=== PATIENT | male | born 1945 | race Caucasian/White ===

== ENCOUNTER 2018-10-29 21:39 | Inpatient (IN) | payer OTHER ==
[2018-10-29 22:45] LABS: Absolute Lymphocytes (CBC) 1.6 K/uL (0.7-4.9); Basophils % 1.1 % (0-1.3); Hematocrit 38.4 % (39.6-49.0); Lymphocytes % 16.7 % (15.3-44.8); MPV 9.8 fL (7.6-11.3); RBC Red Blood Cell Count 4.68 M/uL (4.33-5.43)
[2018-10-29 22:56] LABS: ALT/SGPT 19 U/L (12-78); AST/SGOT 15 U/L (15-37); Albumin 3.5 g/dL (3.4-5.0); Alkaline Phosphatase 87 U/L (45-117); BUN Blood Urea Nitrogen 22 mg/dL (7-18); Bicarbonate 27 mmol/L (21-32); Bilirubin Direct < 0.1 mg/dL (0-0.2); Bilirubin Total 0.3 mg/dL (0.2-1.0); Glucose Level 185 mg/dL (74-106); Magnesium 2.5 mg/dL (1.8-2.4); NT PRO-BNP 745 pg/mL (<125); Potassium 4.1 mmol/L (3.5-5.1); Protein, Total 7.3 g/dL (6.4-8.2); Sodium Level 140 mmol/L (136-145)
[2018-10-29 22:58] LABS: Troponin (Emerg Dept Use Only) 1.03 ng/mL (0.0-0.045)
--- NOTE | 2018-10-29 23:23 | ER ---
Nurse's Notes [facility] Name: Aniceto Feldman Age: 73 yrs Sex: Male : 1945 Arrival Date: 10/29/2018 Time: 21:41 Bed 6 Private MD: Diagnosis: Chest pain. Acute M.I. Elevated Troponin Presentation: 10/29 21:55 Presenting complaint: Patient states: left chest wall pain since 2044. pt stated the ak1 pain moved from center of his chest to the left chest wall. 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 Transition of care: patient was not received from another setting of care. Onset of symptoms was October 29, 2018. Risk Assessment: Do you want to hurt yourself or someone else? Patient reports no desire to harm self or others. Initial Sepsis Screen: Does the patient meet any 2 criteria? No. Patient's initial sepsis screen is negative. Does the patient have a suspected source of infection? No. Patient's initial sepsis screen is negative. Care prior to arrival: None. 21:55 Acuity: KRISTIE 3 ak1 21:55 Method Of Arrival: Ambulatory ak1 Triage Assessment: 21:59 General: Appears in no apparent distress. comfortable, Behavior is calm, cooperative. ak1 Pain: Complains of pain in left clavicle, anterior aspect of left upper chest, xyphoid area, mid-sternal area and left breast. EENT: No signs and/or symptoms were reported regarding the EENT system. Neuro: Level of Consciousness is awake, alert, obeys commands, Oriented to person, place, time, situation, Appropriate for age Filling And Packing Supervisor are equal bilaterally Moves all extremities. Gait is steady, Speech is normal, Facial symmetry appears normal. Cardiovascular: Reports chest pain, diaphoresis, palpitations, Heart tones S1 S2 present Capillary refill < 3 seconds Patient's skin is warm and dry. Respiratory: Airway is patent Respiratory effort is even, unlabored, Respiratory pattern is regular. GI: No signs and/or symptoms were reported involving the gastrointestinal system. : No signs and/or symptoms were reported regarding the genitourinary system. Derm: Skin is intact, Skin is dry, Skin temperature is warm. Musculoskeletal: No signs and/or symptoms reported regarding the musculoskeletal system. Historical: - Allergies: 21:59 Procardia; ak1 21:59 Fentanyl; ak1 21:59 Vecuronium [place]; ak1 21:59 nostigmine; ak1 21:59 amlodipine; ak1 - Home Meds: 21:59 losartan oral oral [Active]; thyroid -LABEL TACKER [Active]; ak1 - PMHx: 21:59 Atrial Fib; colon cancer 07/2016 getting vitamin C IV infusions; Hypertension; irregular ak1 heart beat; Myocardial infarction; Hypothyroidism; - PSHx: 21:59 Carotid surgery; Heart stents; hand surgery-right hand; Tonsillectomy; tumor removal- ak1 left shoulder; - Immunization history:: Adult Immunizations unknown. - Social history:: Smoking status: Patient/guardian denies using tobacco. - Ebola Screening: : No symptoms or risks identified at this time. Screenin:01 Abuse screen: Denies threats or abuse. Denies injuries from another. Nutritional ak1 screening: No deficits noted. Tuberculosis screening: No symptoms or risk factors identified. Fall Risk None identified. Assessment: 22:01 Pain: Pain does not radiate. Pain began 2 hours ago. ak1 10/30 00:08 Reassessment: Patient and/or family updated on plan of care and expected duration. Pain ao level reassessed. Patient is alert, oriented x 3, equal unlabored respirations, skin warm/dry/pink. Called to give report and no nurse has been assigned. Charge stated will called back when assignment has been made. Vital Signs: 10/29 21:54 BP 165 / 86; Pulse 97; Resp 16; Temp 98.1; Pulse Ox 95% on R/A; Weight 97.52 kg (R); ak1 Height 5 ft. 1 in. (154.94 cm) (R); Pain 5/10; 23:00 BP 131 / 52; Pulse 90; Resp 18; Pulse Ox 95% on R/A; ao 10/30 00:08 BP 156 / 68; Pulse 91; Resp 18; Pulse Ox 97% ; Pain 3/10; ao 10/29 21:54 Body Mass Index 40.62 (97.52 kg, 154.94 cm) ak1 ED Course: 10/29 21:41 Patient arrived in ED. ds1 21:54 Felton Mercado MD is Attending Physician. pkl 21:54 Rimma Alexandra RN is Primary Nurse. ak1 21:54 Arm band placed on Patient placed in an exam room, on a stretcher, on strategic intelligence officer, ak1 on pulse oximetry, Patient notified of wait time. 21:56 Triage completed. ak1 21:59 EKG completed in triage. Results shown to MD. ak1 22:01 Patient has correct armband on for positive identification. Placed in gown. Bed in low ak1 position. Call light in reach. Side rails up X 1. Adult w/ patient. cook helper on. Pulse ox on. NIBP on. 22:01 No provider procedures requiring assistance completed. EKG done, by ED staff, reviewed ak1 by Felton Mercado MD X-ray(s) taken. Patient maintains SpO2 saturation greater than 95% on room air. 22:07 XRAY Chest (1 view) In Process Unspecified. EDMS 23:19 Sukhdev Finch MD is Hospitalizing Provider. pkl 23:59 Notified ED physician of other Dr. Mercado with verbal order to send pt to Tele unit not ak1 ICU[facility]. 10/30 00:00 Patient admitted, IV remains in place. ak1 Administered Medications: 10/29 23:35 Drug: HEParin 5000 units {Co-Signature: gibson (Rimma Alexandra RN).} Route: IV; Rate: 5000 ao bolus; Site: right subclavian; 23:47 Drug: Heparin ([place] Drip) 12 units/kg/hr - (HEParin 12107 units, D5W 500 ml) ao {Co-Signature: gibson (Rimma Alexandra RN).} Route: IV; Rate: calculated rate; Site: right forearm; Outcome: 23:21 Decision to Hospitalize by Provider. pkl 10/30 00:44 Admitted to Tele accompanied by tech, room 422, on monitor, with chart, Report called ao to Primary nurse Condition: stable Instructed on the need for admit. 00:45 Patient left the ED. ao Signatures: Dispatcher [employer] EDMS Felton Mercado MD MD pkl Gaby Marks ds1 Rimma Alexandra, RN RN ak1 Arun Calvin RN RN david connor1
--- NOTE | 2018-10-29 23:24 | EDPHYS ---
Physician Documentation [facility] Name: Aniceto Feldman Age: 73 yrs Sex: Male : 1945 Arrival Date: 10/29/2018 Time: 21:41 Bed 6 Private MD: ED Physician Felton Mercado HPI: 10/29 22:08 This 73 yrs old Male presents to ER via Ambulatory with complaints of Chest pkl Pain. 22:08 The patient or guardian reports chest pain that is located primarily in the substernal pkl area. Onset: just prior to arrival, 1 hour(s) ago. The pain radiates to left side chest. Associated signs and symptoms: The patient has no apparent associated signs or symptoms. The chest pain is described as dull. The patient has experienced similar episodes in the past, a few times. Historical: - Allergies: 21:59 Procardia; ak1 21:59 Fentanyl; ak1 21:59 Vecuronium [place]; ak1 21:59 nostigmine; ak1 21:59 amlodipine; ak1 - Home Meds: 21:59 losartan oral oral [Active]; thyroid -SALES SUPPORT REP [Active]; ak1 - PMHx: 21:59 Atrial Fib; colon cancer 07/2016 getting vitamin C IV infusions; Hypertension; irregular ak1 heart beat; Myocardial infarction; Hypothyroidism; - PSHx: 21:59 Carotid surgery; Heart stents; hand surgery-right hand; Tonsillectomy; tumor removal- ak1 left shoulder; - Immunization history:: Adult Immunizations unknown. - Social history:: Smoking status: Patient/guardian denies using tobacco. - Ebola Screening: : No symptoms or risks identified at this time. ROS: 22:08 Eyes: Negative for injury, pain, redness, and discharge, ENT: Negative for injury, pkl pain, and discharge, Neck: Negative for injury, pain, and swelling. 22:08 Cardiovascular: Positive for chest pain. 22:08 Respiratory: Negative for cough, shortness of breath. 22:08 Abdomen/GI: Negative for abdominal pain, nausea, vomiting, and diarrhea. 22:08 Back: Negative for acute changes. 22:08 : Negative for urinary symptoms. 22:08 MS/extremity: Negative for acute changes. 22:08 Skin: Negative for rash. 22:08 Neuro: Negative for altered mental status. Exam: 22:08 Head/Face: Normocephalic, atraumatic. Eyes: Pupils equal round and reactive to light, pkl extra-ocular motions intact. Lids and lashes normal. Conjunctiva and sclera are non-icteric and not injected. Cornea within normal limits. Periorbital areas with no swelling, redness, or edema. ENT: Nares patent. No nasal discharge, no septal abnormalities noted. Tympanic membranes are normal and external auditory canals are clear. Oropharynx with no redness, swelling, or masses, exudates, or evidence of obstruction, uvula midline. Mucous membranes moist. Neck: Trachea midline, no thyromegaly or masses palpated, and no cervical lymphadenopathy. Supple, full range of motion without nuchal rigidity, or vertebral point tenderness. No Meningismus. Chest/axilla: Normal chest wall appearance and motion. Nontender with no deformity. No lesions are appreciated. Cardiovascular: Regular rate and rhythm with a normal S1 and S2. No gallops, murmurs, or rubs. Normal PMI, no JVD. No pulse deficits. Respiratory: Lungs have equal breath sounds bilaterally, clear to auscultation and percussion. No rales, rhonchi or wheezes noted. No increased work of breathing, no retractions or nasal flaring. Abdomen/GI: Soft, non-tender, with normal bowel sounds. No distension or tympany. No guarding or rebound. No evidence of tenderness throughout. Back: No spinal tenderness. No costovertebral tenderness. Full range of motion. Skin: Warm, dry with normal turgor. Normal color with no rashes, no lesions, and no evidence of cellulitis. MS/ Extremity: Pulses equal, no cyanosis. Neurovascular intact. Full, normal range of motion. Neuro: Awake and alert, GCS 15, oriented to person, place, time, and situation. Cranial nerves II-XII grossly intact. Motor strength 5/5 in all extremities. Sensory grossly intact. Cerebellar exam normal. Normal gait. Vital Signs: 21:54 BP 165 / 86; Pulse 97; Resp 16; Temp 98.1; Pulse Ox 95% on R/A; Weight 97.52 kg (R); ak1 Height 5 ft. 1 in. (154.94 cm) (R); Pain 5/10; 23:00 BP 131 / 52; Pulse 90; Resp 18; Pulse Ox 95% on R/A; ao 10/30 00:08 BP 156 / 68; Pulse 91; Resp 18; Pulse Ox 97% ; Pain 3/10; ao 10/29 21:54 Body Mass Index 40.62 (97.52 kg, 154.94 cm) [facility] MDM: 10/29 21:54 Patient medically screened. pkl 23:15 Data reviewed: vital signs, nurses notes, lab test result(s), EKG, radiologic studies, pkl plain films. ED course: Patient feeling better. Chest pain resolved. Discussed lab. and imaging studies with patient. Dr. Finch and Dr. Guillory notified of admission. 10/29 21:55 Order name: Basic Metabolic Panel 10/29 21:55 Order name: CBC with Diff 10/29 21:55 Order name: LFT's; Complete Time: 23:21 10/29 21:55 Order name: Magnesium; Complete Time: 23:21 10/29 21:55 Order name: NT PRO-BNP; Complete Time: 23:21 10/29 21:55 Order name: PT-INR; Complete Time: 23:21 10/29 21:55 Order name: Troponin (emerg Dept Use Only); Complete Time: 23:21 10/29 21:55 Order name: XRAY Chest (1 view) 10/29 21:56 Order name: Basic Metabolic Panel; Complete Time: 23:21 [facility] 10/29 21:56 Order name: CBC with Automated Diff; Complete Time: 23:21 [facility] 10/29 23:18 Order name: Troponin (emerg Dept Use Only); Complete Time: 02:59 [facility] 10/29 23:38 Order name: Troponin I [facility] 10/29 21:55 Order name: EKG; Complete Time: 21:56 10/29 21:55 Order name: Cardiac monitoring; Complete Time: 21:59 10/29 21:55 Order name: EKG - Nurse/Tech; Complete Time: 21:59 10/29 21:55 Order name: IV Saline Lock; Complete Time: 22:12 10/29 21:55 Order name: Labs collected and sent; Complete Time: 22:12 10/29 21:55 Order name: O2 Per Protocol; Complete Time: 21:59 10/29 21:55 Order name: O2 Sat Monitoring; Complete Time: 21:59 10/29 23:18 Order name: EKG; Complete Time: 23:18 ak1 10/29 23:18 Order name: EKG - Nurse/Tech; Complete Time: 23:17 ak1 10/29 23:37 Order name: Regular EDMS 10/29 23:37 Order name: EKG Electrocardiogram EDMS 10/29 23:37 Order name: EKG Electrocardiogram EDMS 10/29 23:37 Order name: EKG Electrocardiogram EDMS 10/29 23:37 Order name: EKG Electrocardiogram EDMS 10/29 23:39 Order name: CONS Physician Consult EDMS Administered Medications: 23:35 Drug: HEParin 5000 units {Co-Signature: gibson (Rimma Alexandra RN).} Route: IV; Rate: 5000 ao bolus; Site: right subclavian; 23:47 Drug: Heparin ([place] Drip) 12 units/kg/hr - (HEParin 43710 units, D5W 500 ml) ao {Co-Signature: gibson (Rimma Alexandra RN).} Route: IV; Rate: calculated rate; Site: right forearm; Disposition: 23:15 Critical Care:. pkl Disposition: 10/29/18 23:21 Hospitalization ordered by Sukhdev Finch for Inpatient Admission. Preliminary diagnosis is Chest pain. Acute M.I. Elevated Troponin. - Bed requested for Telemetry/MedSurg (Inpatient). - Status is Inpatient Admission. ao - Condition is Stable. - Problem is new. - Symptoms have improved. UTI on Admission? No Signatures: Dispatcher [employer] EDIA Felton Mercado MD MD pkl Chretien, Felicia, RN RN fc Krenek, Amber, RN RN ak1 Kerry Balderas RN RN cg Arun Calvin RN RN ao Rimma Alexandra RN ak1 Corrections: (The following items were deleted from the chart) 10/30 00:00 10/29 23:21 Hospitalization Ordered by Sukhdev Finch MD for Inpatient Admission. guille Preliminary diagnosis is Chest pain. Acute M.I. Elevated Troponin. Bed requested for Intensive Care Unit. Status is Inpatient Admission. Condition is Stable. Problem is new. Symptoms have improved. UTI on Admission? No. pkl 10/30 00:03 00:00 10/29/2018 23:21 Hospitalization Ordered by Sukhdev Finch MD for Inpatient cg Admission. Preliminary diagnosis is Chest pain. Acute M.I. Elevated Troponin. Bed requested for Telemetry/MedSurg (Inpatient). Status is Inpatient Admission. Condition is Stable. Problem is new. Symptoms have improved. UTI on Admission? No. cg 00:45 00:03 10/29/2018 23:21 Hospitalization Ordered by Sukhdev Finch MD for Inpatient ao Admission. Preliminary diagnosis is Chest pain. Acute M.I. Elevated Troponin. Bed requested for Telemetry/MedSurg (Inpatient). Status is Inpatient Admission. Condition is Stable. Problem is new. Symptoms have improved. UTI on Admission? No. cg
[2018-10-29] MEDS ORDERED: ACETAMINOPHEN 500 MG TAB PO PRN (23:28)
[2018-10-29] MEDS ORDERED: MORPHINE 4 MG/ML SYR IV PRN (23:28)
[2018-10-29] MEDS ORDERED: ONDANSETRON 4 MG/2 ML VIAL IV PRN (23:28)
[2018-10-29] MEDS ORDERED: HEPARIN/D5W 25,000 UNIT/500 ML BAG IV ONE (23:34)
[2018-10-29] MEDS ORDERED: HEPARIN 5000 UNIT/ML 1 ML VIAL ONE (23:34)
[2018-10-30] MEDS ORDERED: HEPARIN/D5W 25,000 UNIT/500 ML BAG IV SCH (01:00)
[2018-10-30 04:03] LABS: Absolute Lymphocytes (CBC) 1.8 K/uL (0.7-4.9); Basophils % 0.9 % (0-1.3); Hematocrit 36.6 % (39.6-49.0); Lymphocytes % 18.3 % (15.3-44.8); MPV 9.5 fL (7.6-11.3); RBC Red Blood Cell Count 4.45 M/uL (4.33-5.43)
[2018-10-30 04:44] LABS: BUN Blood Urea Nitrogen 21 mg/dL (7-18); Bicarbonate 28 mmol/L (21-32); Glucose Level 112 mg/dL (74-106); Potassium 4.2 mmol/L (3.5-5.1); Sodium Level 142 mmol/L (136-145)
[2018-10-30 07:02] LABS: Urine Appearance CLEAR; Urine Bilirubin NEGATIVE (NEG); Urine Blood NEGATIVE (NEG); Urine Color YELLOW; Urine Glucose NEGATIVE (NEG); Urine Protein NEGATIVE (NEG); Urine Specific Gravity 1.015 (1.005-1.030); Urine Urobilinogen 0.2 mg/dL (0.2-1.0); Urine pH 6.5 (5.0-7.0)
[2018-10-30 07:12] LABS: Urine Microscopic Reflex NO UMIC
[2018-10-30] MEDS ORDERED: ASPIRIN EC 81 MG TAB PO SCH (09:00)
[2018-10-30] MEDS ORDERED: HEPARIN 5000 UNIT/ML 1 ML VIAL IV ONE (09:42)
--- NOTE | 2018-10-30 09:56 | RAD REPORT ---
EXAM DESCRIPTION: RAD - Chest Single View - 10/29/2018 10:06 pm CLINICAL HISTORY: Chest pain COMPARISON: September 2016 TECHNIQUE: AP portable chest image was obtained 2159 hours . FINDINGS: No dense consolidation seen. Lung volume is only minimally reduced compared to the prior s tudy. Interstitial and alveolar opacities are present in the lower lung morfin with an overall promin ence of the interstitial pattern. Findings are slightly worse on the right. Heart and vasculature are normal. No measurable pleural effusion and no pneumothorax. No acute bony abnormality seen. No acute aortic findings suspected. IMPRESSION: Interstitial and scattered alveolar opacities are present in the lung morfin without asy mmetry towards the left side. No left-sided pneumothorax or other finding that would explain a predom inantly left chest pain pattern. Lung parenchymal pattern is nonspecific. This can be interstitial and alveolar edema from early failu re or volume overload. Early pneumonia changes in each lower lung field also possible.
[2018-10-30] MEDS ORDERED: LIDOCAINE 1% 20 ML MDV ONE (12:52)
[2018-10-30] MEDS ORDERED: HEPA 1000U/500MLS 1,000 UNIT/500 ML BAG IV ONE (12:52)
[2018-10-30] MEDS ORDERED: NA CHLORIDE 0.9% 500 ML ONE (12:52)
[2018-10-30] MEDS ORDERED: ATROPINE SULF 1 MG/10 ML SYR IV ONE (13:02)
[2018-10-30] MEDS ORDERED: NA CHLORIDE 0.9% 0 ML ONE (13:02)
[2018-10-30] MEDS ORDERED: MIDAZOLAM HCL 2 MG/2 ML INJ ONE (13:03)
--- NOTE | 2018-10-30 13:49 | EKG ---
Test Date: 2018-10-29 Test Time: 23:10:03 Tape Stringer: MEASUREMENT RESULTS: Intervals: Rate: 98 KS: 198 QRSD: 154 QT: 400 QTc: 510 [place]: P: 20 KS: 198 QRS: -11 T: 143 INTERPRETIVE STATEMENTS: Normal sinus rhythm with sinus arrhythmia Left ventricular hypertrophy with QRS widening Lateral infarct, age undetermined Abnormal ECG Compared to ECG 10/29/2018 23:07:39 Left ventricular hypertrophy now present Myocardial infarct finding now present Atrial premature complex(es) no longer present Left bundle-branch block no longer present Electronically Signed On 10-30-18 13:47:25 CDT by Cedrick Cary
--- NOTE | 2018-10-30 13:49 | EKG ---
Test Date: 2018-10-29 Test Time: 23:07:39 [employer] Machine Operator: MEASUREMENT RESULTS: Intervals: Rate: 93 PA: 198 QRSD: 154 QT: 422 QTc: 524 [place]: P: 103 PA: 198 QRS: -7 T: 139 INTERPRETIVE STATEMENTS: Sinus rhythm with premature supraventricular complexes Left bundle branch block Abnormal ECG Compared to ECG 10/29/2018 21:55:32 Atrial premature complex(es) now present Sinus tachycardia no longer present Ventricular premature complex(es) no longer present First degree AV block no longer present Electronically Signed On 10-30-18 13:47:26 CDT by Cedrick Cary
--- NOTE | 2018-10-30 13:50 | EKG ---
Test Date: 2018-10-29 Test Time: 21:55:32 Environmental Studies Faculty Member: SARA MEASUREMENT RESULTS: Intervals: Rate: 104 AR: 224 QRSD: 152 QT: 404 QTc: 531 [place]: P: AR: 224 QRS: -6 T: 158 INTERPRETIVE STATEMENTS: Sinus tachycardia with 1st degree AV block with occasional premature ventricular complexes Left bundle branch block Abnormal ECG Compared to ECG 09/28/2016 06:53:40 Ventricular premature complex(es) now present First degree AV block now present Left bundle-branch block now present Atrial fibrillation no longer present Myocardial infarct finding no longer present T-wave abnormality no longer present Possible ischemia no longer present Electronically Signed On 10-30-18 13:47:32 CDT by Cedrick Cary
--- NOTE | 2018-10-30 15:08 | ECHO ---
HEIGHT: 5 ft 10 in WEIGHT: 216 lb 0 oz DATE OF STUDY: 10/30/[address]: Cedrick Cary MD 2-DIMENSIONAL: YES M.MODE: YES DOPPLER: YES COLOR FLOW: YES TDS: NO PORTABLE: NO DEFINITY: NO BUBBLE STUDY: NO DIAGNOSIS: MYOCARDIAL INFARCTION CARDIAC HISTORY: CATHERIZATION: YES SURGERY: NO PROSTHETIC VALVE: NO PACEMAKER: NO MEASUREMENTS (cm) DIASTOLIC (NORMALS) SYSTOLIC (NORMALS) IVSd 1.3 (0.6-1.2) LA Diam 4.4 (1.9-4.0) LVEF 57% LVIDd 5.1 (3.5-5.7) LVIDs 3.5 (2.0-3.5) %FS 30% LVPWd 1.3 (0.6-1.2) Ao Diam 2.6 (2.0-3.7) 2 DIMENSIONAL ASSESSMENT: RIGHT ATRIUM: NORMAL LEFT ATRIUM: LEFT ATRIAL ENLARGEMENT RIGHT VENTRICLE: NORMAL LEFT VENTRICLE: LEFT VENTRICULAR HYPERTROPHY TRICUSPID VALVE: NORMAL MITRAL VALVE: MITRAL ANNULAR CALCIFICATION PULMONIC VALVE: NORMAL AORTIC VALVE: STENOTIC PERICARDIAL EFFUSION: NONE AORTIC ROOT: NORMAL LEFT VENTRICULAR WALL MOTION: NORMAL EJECTION FRACTION DECREASED LEFT VENTRICULAR COMPLIANCE. DOPPLER/COLOR FLOW: MODERATE AORTIC STENOSIS AREA 1.4 CENTIMETERS SQUARED. COMMENTS: MODERATE AORTIC STENOSIS AREA 1.4 CENTIMETERS SQUARED. LEFT VENTRICULAR HYPERTROPHY. DECREASED LEFT VENTRICULAR COMPLIANCE. MITRAL ANNULAR CALCIFICATION. NORMAL EJECTION FRACTION. TECHNOLOGIST: CHANEL CHANCE
[2018-10-30] MEDS ORDERED: NA CHLORIDE 0.9% 1,000 ML IV ONE (15:26)
--- NOTE | 2018-10-30 18:09 | P.SSS ---
Patient History Date of Service: 10/30/18 Reason for admission: PALPITATIONS History of Present Illness: MR. NGUYỄN HAS HAD PALPITATIONS WHEN HE WALKS AND SOME CHEST HEAVINESS. HE COMES INTO ER. HIS TROPONIN RISES TO 20 SO I MOVE HIM TO ICU. HE IS NOT SYMPTOMATIC LAYING DOWN. DR. SINGH DOES CATH AND HE HAS TRIPLE VESSEL DISEASE NEEDING BYPASS SURGERY. HE IS NOT BEING SENT TO [facility]. Allergies amlodipine Allergy (Verified 10/30/18 01:06) Anaphylaxis fentanyl Allergy (Verified 10/30/18 01:06) Anaphylaxis nifedipine [From Procardia] Allergy (Verified 10/30/18 02:43) Anaphylaxis vecuronium Allergy (Verified 10/30/18 01:06) Anaphylaxis nostigmi Allergy (Uncoded 10/30/18 02:43) Anaphylaxis Home Medications: Aspirin Chewable [Aspirin Chewable*] 325 mg PO DAILY PRN 10/30/18 Losartan Potassium 1 tab PO DAILY 10/30/18 Thyroid,Pork [Thyroid] 1 tab PO DAILY 10/30/18 hydroCHLOROthiazide [Hydrochlorothiazide] 1 tab PO DAILY PRN 10/30/18 - Past Medical/Surgical History Has patient received pneumonia vaccine in the past: No Diabetic: No -: HTN -: NV X2 -: HYPERCHOLESTEREMIA -: DEGENERATIVE JOINT DIS -: COLON CA- 2014 -: CAD -: PILONIDAL CYST -: A.FIB -: MINI STROKES -: HAND SX -: CAROTID SX -: SHOULDER SX -: HEART CATH W/STENTS PLACED -: TONSILLECTOMY - Family History Father -: Other (see notes) Notes: Heart attack Brother -: Diabetes Sister Notes: Heart problems - Social History Smoking Status: Never smoker Alcohol use: Yes CD- Drugs: No Caffeine use: Yes Place of Residence: Home Review of Systems 10-point ROS is otherwise unremarkable Physical Examination - Vital Signs Temperature: 98.2 F Blood Pressure: 160/75 Pulse: 71 Respirations: 16 Pulse Ox (%): 97 - Physical Exam General: Alert, In no apparent distress, Obese HEENT: Atraumatic, PERRLA, Mucous membr. moist/pink, EOMI, Sclerae nonicteric Neck: Supple, 2+ carotid pulse no bruit, No LAD, Without JVD or thyroid abnormality Respiratory: Clear to auscultation bilaterally, Normal air movement Cardiovascular: Regular rate/rhythm, Normal S1 S2 Gastrointestinal: Normal bowel sounds, No tenderness Musculoskeletal: No tenderness Integumentary: No rashes Neurological: Normal gait, Normal speech, Normal strength at 5/5 x4 extr, Normal tone, Normal affect Lymphatics: No axilla or inguinal lymphadenopathy - Studies Laboratory Data (last 24 hrs) 10/29/18 22:05: PT 11.8, INR 1.00 10/29/18 22:05: WBC 9.4, Hgb 12.4 L, Hct 38.4 L, Plt Count 236 10/29/18 22:05: Sodium 140, Potassium 4.1, BUN 22 H, Creatinine 1.07, Glucose 185 H, Magnesium 2.5 H, Total Bilirubin 0.3, AST 15, ALT 19, Alkaline Phosphatase 87 - Diagnosis (Problem(s)) (1) Acute anteroseptal myocardial infarction Onset Date: 07/08/15 Current Visit: No Status: Acute Plan: SENT TO [place] FOR CABG. STABLE FOR NOW. (2) Hypertension Current Visit: No Status: Chronic Plan: STABLE, FU IN OFFICE AFTER CABG. Qualifiers: Hypertension type: essential hypertension Qualified Code(s): I10 - Essential (primary) hypertension - Disposition Disposition: TRANSFER TO [facility] Condition: FAIR Diet: AHA Critical Care: Yes
--- NOTE | 2018-10-30 21:31 | CON ---
Date of Consultation: 10/30/2018 Reason For Consultation: [id number] myocardial infarction. History Of Present Illness: Mr. Feldman is a 73-year-old white male. He is very well known to me fro m a followup in my office for years. He has known history of aortic stenosis that was mild early thi s year. He has a history of coronary artery disease, status post 2 stents many years ago. He also h as a history of carotid endarterectomy, atrial fibrillation that has resolved, hypertension, and hypo thyroidism. He came in with chest pain, dyspnea on exertion. EKG showing nonspecific intraventricul ar conduction delay and positive troponin. Chest x-ray was negative. Troponin was 9.28. His creati nine was 0.82. By the time I saw him, he was pain free. His symptoms, however, included substernal chest pain, dyspnea on exertion. No palpitation. No syncope. He denied any fever or chills. Sympt oms have been going on for couple of weeks. Past Medical History: As stated above. Allergies: HE IS ALLERGIC TO NORVASC, PROCARDIA, AND FENTANYL. Medications: His medications at home supposed to be aspirin, losartan, Synthroid, and hydrochlorothi azide. Review of Systems: Negative. Social History: Negative. Family History: Noncontributory. Physical Examination: General: Mr. Feldman was in no acute distress. Vital Signs: Stable. He was afebrile. He was in a sinus rhythm. HEENT: Negative. Neck: Supple without lymphadenopathy, JVD, or thyromegaly. I heard a right carotid bruit. Chest: Clear to auscultation and percussion. Cardiac: Revealed a regular rhythm and rate with a 3/6 systolic ejection murmur at the third right i ntercostal space that radiated to the carotid. Abdomen: Benign. Extremities: Revealed no clubbing, cyanosis. He had trace edema. Pulses were present bilaterally a nd symmetrically. Neurologic: He was intact. Skin: Dry and intact. Diagnostic Data: As stated earlier. Impression And Plan: 1.[id number] myocardial infarction. 2.Aortic stenosis. 3.History of carotid endarterectomy. 4.History of coronary artery disease, status post multiple stents. 5.Hypertension. 6.Hypothyroidism. Mr. Feldman creatinine is adequate. I explained to him the need for a heart catheterization to define his coronary anatomy. He understands the risk and the benefits of the procedure and he agreed to pr oceed. I would like him to get a 2D echocardiogram before I proceed with the catheterization to see how severe the aortic valve is. The case was discussed with Dr. Finch and his . DUDLEY/THONY Voice ID: [id number] Report ID: [id number]
--- NOTE | 2018-10-31 03:32 | OP ---
Date of Procedure: 10/30/2018 Surgeon: Cedrick Cary MD Drift Miner: Lilly Balderas. Procedure: Left heart catheterization with selective coronary arteriogram. Indication: [id number] myocardial infarction and aortic stenosis. Description Of Procedure: Mr. Feldman is 73, came into the hospital on 10/29/2018 with chest pain, po sitive troponin, abnormal EKG, consented for heart catheterization. He was brought to the labor and delivery nurse a s an inpatient, prepped and draped in the routine sterile fashion, given 1 mg of Versed for IV sedati on. A 6-Tajik sheath introduced in the right common femoral artery successfully. A 6-Tajik Judkin s catheter left and right were used to do the coronary arteriography. On the left side, he had a marycarmen l left ostium; it was difficult to selectively cannulate the circumflex despite trying different cath eters. Coronary angiography there revealed a patent proximal LAD stent. He had 2 sequential stenose s in the mid LAD of about 70% to 80% each. He had about an 80% stenosis of the 1st obtuse marginal w ith diffuse plaquing throughout. He had a codominant system. JR4 was used to select the right coron johnny artery. It was a poor selection. A 3DRC catheter was used instead. He was found to have 99% lo ng stenosis within an old stent in the right coronary artery extending all the way to the ostium. Complications: There were no complications. Blood Loss: 5 cc. Anesthesia: Total conscious sedation was 30 minutes. Final Diagnoses: Severe coronary artery disease, 3 vessel; moderate aortic stenosis with area of 1.4 sq cm by echo. Plan: Bypass surgery and possible aortic valve replacement. DUDLEY/THONY Voice ID: [id number] Report ID: [id number]
--- NOTE | 2018-10-31 07:16 | EKG ---
Test Date: 2018-10-30 Test Time: 08:01:18 Tool Operator: GENO MEASUREMENT RESULTS: Intervals: Rate: 69 DE: 212 QRSD: 164 QT: 478 QTc: 512 [place]: P: 55 DE: 212 QRS: 2 T: 157 INTERPRETIVE STATEMENTS: Sinus rhythm with 1st degree AV block with premature atrial complexes Left bundle branch block Abnormal ECG Compared to ECG 10/29/2018 23:10:03 Atrial premature complex(es) now present First degree AV block now present Left bundle-branch block now present Sinus arrhythmia no longer present Left ventricular hypertrophy no longer present Myocardial infarct finding no longer present Electronically Signed On 10-31-18 07:13:44 CDT by Cedrick Cary
== END 2018-10-30 18:00 | disposition short-term general hospital (02) | DRG 282 ==
LOC: ER 21:39 → ERHOLD 23:52 → 4TH 10-30 00:26 → 3RD-ICU 10-30 06:15
PROVIDERS: ADMIT Internal Medicine; ATTEND Internal Medicine
PROC: 4A023N7 Measurement of Cardiac Sampling and Pressure, Left Heart, Percutaneous Approach (ICD-10-PCS; principal; 2018-10-30)
PROC: B205YZZ Plain Radiography of Left Heart using Other Contrast (ICD-10-PCS; 2018-10-30)
PROC: B201YZZ Plain Radiography of Multiple Coronary Arteries using Other Contrast (ICD-10-PCS; 2018-10-30)
DX: I21.4 Non-ST elevation (NSTEMI) myocardial infarction (principal); I25.10 Atherosclerotic heart disease of native coronary artery without angina pectoris; I11.9 Hypertensive heart disease without heart failure; I35.0 Nonrheumatic aortic (valve) stenosis; E03.9 Hypothyroidism, unspecified; I25.2 Old myocardial infarction; Z86.73 Personal history of transient ischemic attack (TIA), and cerebral infarction without residual deficits; Z85.038 Personal history of other malignant neoplasm of large intestine; Z95.5 Presence of coronary angioplasty implant and graft
CPT/HCPCS: 36415; 71045; 80048; 80076; 81003; 83735; 83880; 84484; 85025; 85610; 85730; 93005; 93306; 93454; 96374; 96375; 99285; C1893; J0583; J1644; J2250

== ENCOUNTER 2019-03-25 20:49 | Inpatient (IN) | payer OTHER ==
--- OUTSIDE RECORDS SUMMARY | 2019-03-25 20:54 | XMS REPORT ---
:1945 Author Organization [facility] Address [address] [place] [address] [address] [place] [address] Care Team Providers Name Role Phone LUCINDA OWENS Unavailable Unavailable Problems This patient has no known problems. Allergies, Adverse Reactions, Alerts This patient has no known allergies or adverse reactions. Medications This patient has no known medications. Results Test Description Test Time Test Comments Text Results Atomic Results Result Comments TISSUE EXAM 2018-11-07 Surgical Pathology Report 12:04:00 Case: [id number] Authorizing Provider: Yuan Whittaker, Collected: 10/31/2018 1039 Ordering Location: [facility] Received: 10/31/2018 1430 PERIOPERATIVE SERVICES Pathologist: Chadwick Avery MD Specimen: Aortic Valve, Aortic valve HEART, AORTIC VALVE, VALVULECTOMY:THREE LEAFLETS WITH NODULAR CALCIFIC ATHEROSCLEROTIC THICKENING Signing Pathologist Direct Phone Line: [phone] signed by Chadwick Avery MD on 11/07/2018 at 12:04 [id number]; [id number] artery disease with angina pectoris A. Aortic valve Part A. Received in formalin labeled with the patient's name, medical record number and "aortic valve" are three buckley-white soft tissue fragments consistent with aortic leaflets that measure 2.5 x 2.2 x 0.4 cm in aggregate. The leaflets display calcifications. No vegetations are identified. The specimen is serially sectioned, and real estate representative sections are submitted in cassette A1 following light decalcification. /isaac PERFORMED RAD, CHEST, 1 2018-11-06 Reason for FINAL REPORT PATIENT ID: VIEW, NON DEPT 07:58:00 exam:->SOBShould [id number] RAD, CHEST, 1 VIEW, NON this be performed DEPT INDICATION: SOB COMPARISON: at the November 03, 2018 FINDINGS: Portable bedside?->Yes frontal view of the chest. IMPRESSION: Limited by underpenetration.Support Lines: None. Lungs and pleura: Basilar subsegmental atelectasis. Small left effusion. No pneumothorax.Heart and mediastinum: Stable contours. Stable surgical changes.Additional findings: None. Signed: JR Mcdonnell Robert MDReport Verified Date/Time: 11/06/2018 07:58:38 Reading Location: [facility] Radiology Reading Room ESIUM 2018-11-06 07:12:00 Test Item Value Reference Range Comments MAGNESIUM (BEAKER) (test chpd=339) 2.3 mg/dL 1.6-2.6 BASIC METABOLIC [id number] 07:12:00 Test Item Value Reference Range Comments SODIUM (BEAKER) (test 139 meq/L 136-145 tbdi=407) POTASSIUM (BEAKER) (test 4.3 meq/L 3.5-5.1 mpec=977) CHLORIDE (BEAKER) (test 104 meq/L 98-107 pmlm=662) CO2 (BEAKER) (test 30 meq/L 22-29 vufv=702) BLOOD UREA NITROGEN 25 mg/dL 7-21 (BEAKER) (test umut=433) CREATININE (BEAKER) (test 0.79 mg/dL 0.57-1.25 ppps=619) GLUCOSE RANDOM (BEAKER) 96 mg/dL 70-105 (test vhcs=827) CALCIUM (BEAKER) (test 9.1 mg/dL 8.4-10.2 nkxf=958) EGFR (BEAKER) (test 96 mL/min/1.73 sq m ESTIMATED GFR IS NOT kofo=2054) ACCURATE CREATININE CLEARANCE IN PREDICTING GLOMERULAR FILTRATION RATE. ESTIMATED GFR IS NOT APPLICABLE FOR DIALYSIS PATIENTS. CBC W/PLT COUNT & AUTO [id number] 06:22:00 Test Item Value Reference Range Comments WHITE BLOOD CELL COUNT (BEAKER) (test lyjt=261) 12.8 K/ L 3.5-10.5 RED BLOOD CELL COUNT (BEAKER) (test opke=681) 3.15 M/ L 4.63-6.08 HEMOGLOBIN (BEAKER) (test ywjd=821) 8.5 GM/DL 13.7-17.5 HEMATOCRIT (BEAKER) (test pvnt=644) 28.0 % 40.1-51.0 MEAN CORPUSCULAR VOLUME (BEAKER) (test yzpa=043) 88.9 fL 79.0-92.2 MEAN CORPUSCULAR HEMOGLOBIN (BEAKER) (test 27.0 pg 25.7-32.2 crjk=449) MEAN CORPUSCULAR HEMOGLOBIN CONC (BEAKER) (test 30.4 GM/DL 32.3-36.5 mkxt=944) RED CELL DISTRIBUTION WIDTH (BEAKER) (test 16.2 % 11.6-14.4 wlao=034) PLATELET COUNT (BEAKER) (test iryx=858) 278 K/CU MM 150-450 MEAN PLATELET VOLUME (BEAKER) (test xukc=656) 10.8 fL 9.4-12.4 NUCLEATED RED BLOOD CELLS (BEAKER) (test 0 /100 WBC 0-0 ecfg=821) NEUTROPHILS RELATIVE PERCENT (BEAKER) (test 69 % rzzf=984) LYMPHOCYTES RELATIVE PERCENT (BEAKER) (test 15 % fdxo=572) MONOCYTES RELATIVE PERCENT (BEAKER) (test 12 % xxjj=164) EOSINOPHILS RELATIVE PERCENT (BEAKER) (test 3 % kbal=557) BASOPHILS RELATIVE PERCENT (BEAKER) (test 1 % vsju=095) NEUTROPHILS ABSOLUTE COUNT (BEAKER) (test 8.78 K/ L 1.78-5.38 elzw=917) LYMPHOCYTES ABSOLUTE COUNT (BEAKER) (test 1.91 K/ L 1.32-3.57 mqck=447) MONOCYTES ABSOLUTE COUNT (BEAKER) (test 1.50 K/ L 0.30-0.82 oyun=059) EOSINOPHILS ABSOLUTE COUNT (BEAKER) (test 0.38 K/ L 0.04-0.54 fvai=911) BASOPHILS ABSOLUTE COUNT (BEAKER) (test 0.06 K/ L 0.01-0.08 upuj=609) IMMATURE GRANULOCYTES-RELATIVE PERCENT (BEAKER) 1 % 0-1 (test emjf=3703) CBC W/PLT COUNT & AUTO [id number] 10:40:00 Test Item Value Reference Range Comments WHITE BLOOD CELL COUNT (BEAKER) (test onkk=208) 14.6 K/ L 3.5-10.5 RED BLOOD CELL COUNT (BEAKER) (test kvip=353) 3.10 M/ L 4.63-6.08 HEMOGLOBIN (BEAKER) (test wenq=874) 8.3 GM/DL 13.7-17.5 HEMATOCRIT (BEAKER) (test crko=371) 26.7 % 40.1-51.0 MEAN CORPUSCULAR VOLUME (BEAKER) (test kxet=433) 86.1 fL 79.0-92.2 MEAN CORPUSCULAR HEMOGLOBIN (BEAKER) (test 26.8 pg 25.7-32.2 utjz=755) MEAN CORPUSCULAR HEMOGLOBIN CONC (BEAKER) (test 31.1 GM/DL 32.3-36.5 ptte=170) RED CELL DISTRIBUTION WIDTH (BEAKER) (test 15.9 % 11.6-14.4 fdmc=772) PLATELET COUNT (BEAKER) (test ewny=241) 235 K/CU MM 150-450 MEAN PLATELET VOLUME (BEAKER) (test acuf=052) 10.9 fL 9.4-12.4 NUCLEATED RED BLOOD CELLS (BEAKER) (test 0 /100 WBC 0-0 pqer=545) (CELLAVISION MANUAL DIFF)2018-11-05 10:40:00 Test Item Value Reference Range Comments NEUTROPHILS - REL (CELLAVISION)(BEAKER) (test 75 % fjnf=6925) LYMPHOCYTES - REL (CELLAVISION)(BEAKER) (test 12 % knrh=5331) MONOCYTES - REL (CELLAVISION)(BEAKER) (test 11 % gkox=1494) EOSINOPHILS - REL (CELLAVISION)(BEAKER) (test 1 % jnge=1981) BASOPHILS - REL (CELLAVISION)(BEAKER) (test 1 % btmv=3612) NEUTROPHILS - ABS (CELLAVISION)(BEAKER) (test 10.95 K/ul 1.78-5.38 vlgf=8798) LYMPHOCYTES - ABS (CELLAVISION)(BEAKER) (test 1.75 K/ul 1.32-3.57 yqqk=5430) MONOCYTES - ABS (CELLAVISION)(BEAKER) (test 1.61 K/uL 0.30-0.82 vtxb=9236) EOSINOPHILS - ABS (CELLAVISION)(BEAKER) (test 0.15 K/uL 0.04-0.54 hdfx=4736) BASOPHILS - ABS (CELLAVISION)(BEAKER) (test 0.15 K/uL 0.01-0.08 jkfq=7035) TOTAL COUNTED (BEAKER) (test wyon=3725) 100 RBC MORPHOLOGY (BEAKER) (test morx=061) Normal WBC MORPHOLOGY (BEAKER) (test acpd=345) Normal PLT MORPHOLOGY (BEAKER) (test uhdq=790) Normal ARTIFACT (CELLAVISION)(BEAKER) (test huuy=0098) Present PLATELET CONCENTRATION (CELLAVISION)(BEAKER) Adequate (test urdb=1885) Received comment: User comments: Slide comments:[id number] 04:40:00 Test Item Value Reference Range Comments MAGNESIUM (BEAKER) (test ksyw=811) 2.1 mg/dL 1.6-2.6 BASIC METABOLIC [id number] 04:40:00 Test Item Value Reference Range Comments SODIUM (BEAKER) (test 138 meq/L 136-145 owkz=790) POTASSIUM (BEAKER) (test 3.9 meq/L 3.5-5.1 etzo=200) CHLORIDE (BEAKER) (test 105 meq/L 98-107 xijd=706) CO2 (BEAKER) (test 27 meq/L 22-29 lhth=298) BLOOD UREA NITROGEN 23 mg/dL 7-21 (BEAKER) (test ryot=858) CREATININE (BEAKER) (test 0.68 mg/dL 0.57-1.25 znay=455) GLUCOSE RANDOM (BEAKER) 103 mg/dL 70-105 (test xoly=183) CALCIUM (BEAKER) (test 8.9 mg/dL 8.4-10.2 tqni=960) EGFR (BEAKER) (test 114 mL/min/1.73 sq m ESTIMATED GFR IS NOT kfdb=0390) ACCURATE CREATININE CLEARANCE IN PREDICTING GLOMERULAR FILTRATION RATE. ESTIMATED GFR IS NOT APPLICABLE FOR DIALYSIS PATIENTS. CBC W/PLT COUNT & AUTO [id number] 07:47:00 Test Item Value Reference Range Comments WHITE BLOOD CELL COUNT (BEAKER) (test hnsv=764) 18.2 K/ L 3.5-10.5 RED BLOOD CELL COUNT (BEAKER) (test xmvq=935) 3.28 M/ L 4.63-6.08 HEMOGLOBIN (BEAKER) (test uznh=782) 8.8 GM/DL 13.7-17.5 HEMATOCRIT (BEAKER) (test uolj=560) 28.6 % 40.1-51.0 MEAN CORPUSCULAR VOLUME (BEAKER) (test vzwu=457) 87.2 fL 79.0-92.2 MEAN CORPUSCULAR HEMOGLOBIN (BEAKER) (test 26.8 pg 25.7-32.2 mkti=032) MEAN CORPUSCULAR HEMOGLOBIN CONC (BEAKER) (test 30.8 GM/DL 32.3-36.5 ctwo=655) RED CELL DISTRIBUTION WIDTH (BEAKER) (test 15.9 % 11.6-14.4 qsxf=135) PLATELET COUNT (BEAKER) (test qeva=105) 207 K/CU MM 150-450 MEAN PLATELET VOLUME (BEAKER) (test qses=425) 11.3 fL 9.4-12.4 NUCLEATED RED BLOOD CELLS (BEAKER) (test 0 /100 WBC 0-0 booh=317) (CELLAVISION MANUAL DIFF)2018-11-04 07:47:00 Test Item Value Reference Range Comments NEUTROPHILS - REL (CELLAVISION)(BEAKER) (test 82 % yodc=8671) LYMPHOCYTES - REL (CELLAVISION)(BEAKER) (test 10 % qgbp=7710) MONOCYTES - REL (CELLAVISION)(BEAKER) (test 8 % qfxm=0552) NEUTROPHILS - ABS (CELLAVISION)(BEAKER) (test 14.92 K/ul 1.78-5.38 ldzt=2625) LYMPHOCYTES - ABS (CELLAVISION)(BEAKER) (test 1.82 K/ul 1.32-3.57 funy=0387) MONOCYTES - ABS (CELLAVISION)(BEAKER) (test 1.46 K/uL 0.30-0.82 gunw=1711) TOTAL COUNTED (BEAKER) (test cbjj=6941) 100 SMUDGE CELLS (BEAKER) (test rwsk=6187) Present GIANT PLATELETS (BEAKER) (test lths=991) Present POLYCHROMATOPHILLIC RBCS(BEAKER) (test clmw=164) 1+ few ANISOCYTOSIS (BEAKER) (test yvzv=379) 1+ few PLATELET CONCENTRATION (CELLAVISION)(BEAKER) Adequate (test uucu=9429) Received comment: User comments: Slide comments:[id number] 05:14:00 Test Item Value Reference Range Comments PHOSPHORUS (BEAKER) (test vela=210) 2.4 mg/dL 2.3-4.7 [id number] 05:14:00 Test Item Value Reference Range Comments MAGNESIUM (BEAKER) (test wucy=209) 2.2 mg/dL 1.6-2.6 BASIC METABOLIC [id number] 05:14:00 Test Item Value Reference Range Comments SODIUM (BEAKER) (test 138 meq/L 136-145 resq=559) POTASSIUM (BEAKER) (test 4.2 meq/L 3.5-5.1 gzww=782) CHLORIDE (BEAKER) (test 104 meq/L 98-107 ximx=918) CO2 (BEAKER) (test 26 meq/L 22-29 ihkc=046) BLOOD UREA NITROGEN 23 mg/dL 7-21 (BEAKER) (test emng=316) CREATININE (BEAKER) (test 0.74 mg/dL 0.57-1.25 pfxc=519) GLUCOSE RANDOM (BEAKER) 98 mg/dL 70-105 (test tkic=149) CALCIUM (BEAKER) (test 9.1 mg/dL 8.4-10.2 mrlu=361) EGFR (BEAKER) (test 104 mL/min/1.73 sq m ESTIMATED GFR IS NOT vqvp=4111) ACCURATE CREATININE CLEARANCE IN PREDICTING GLOMERULAR FILTRATION RATE. ESTIMATED GFR IS NOT APPLICABLE FOR DIALYSIS PATIENTS. POCT-GLUCOSE [id number] 01:09:00 Test Item Value Reference Range Comments POC-GLUCOSE METER (BEAKER) 110 mg/dL 70-110 TESTED AT [address] (test rsvt=5066) [facility] [address] POCT-GLUCOSE [id number] 18:03:00 Test Item Value Reference Range Comments POC-GLUCOSE METER (BEAKER) 102 mg/dL 70-110 TESTED AT [address] (test ubia=1343) [facility] [address] POCT-GLUCOSE [id number] 12:11:00 Test Item Value Reference Range Comments POC-GLUCOSE METER (BEAKER) 159 mg/dL 70-110 TESTED AT [address] (test rqks=3682) [place] [address] [id number] 08:52:00 Test Item Value Reference Range Comments ACTIVATED CLOTTING TIME 356 sec TESTED AT [facility] [address] (BEAKER) (test xgpp=937) [place] [id number] 08:52:00 Test Item Value Reference Range Comments ACTIVATED CLOTTING TIME 131 sec TESTED AT [facility] [address] (BEAKER) (test kyfv=476) [place] [address] [id number] 05:04:00 Test Item Value Reference Range Comments MAGNESIUM (BEAKER) (test 2.3 mg/dL 1.6-2.6 Specimen slightly hemolyzed ogzr=293) [id number] 05:04:00 Test Item Value Reference Range Comments PHOSPHORUS (BEAKER) (test 1.9 mg/dL 2.3-4.7 Specimen slightly hemolyzed bfgu=512) BASIC METABOLIC [id number] 05:04:00 Test Item Value Reference Range Comments SODIUM (BEAKER) (test 138 meq/L 136-145 yxfn=588) POTASSIUM (BEAKER) (test 4.5 meq/L 3.5-5.1 Specimen slightly lofl=470) hemolyzed CHLORIDE (BEAKER) (test 106 meq/L 98-107 dayw=517) CO2 (BEAKER) (test 25 meq/L 22-29 wbzg=264) BLOOD UREA NITROGEN 29 mg/dL 7-21 (BEAKER) (test auhe=284) CREATININE (BEAKER) (test 0.81 mg/dL 0.57-1.25 Specimen slightly fsuh=566) hemolyzed GLUCOSE RANDOM (BEAKER) 109 mg/dL 70-105 (test depr=163) CALCIUM (BEAKER) (test 9.4 mg/dL 8.4-10.2 udvz=419) EGFR (BEAKER) (test 93 mL/min/1.73 sq m ESTIMATED GFR IS NOT lovs=4878) ACCURATE CREATININE CLEARANCE IN PREDICTING GLOMERULAR FILTRATION RATE. ESTIMATED GFR IS NOT APPLICABLE FOR DIALYSIS PATIENTS. CBC (HEMOGRAM ONLY)2018-11-03 04:56:00 Test Item Value Reference Range Comments WHITE BLOOD CELL COUNT 21.9 K/ L 3.5-10.5 (BEAKER) (test oliz=893) RED BLOOD CELL COUNT (BEAKER) 3.27 M/ L 4.63-6.08 (test ohqw=874) HEMOGLOBIN (BEAKER) (test 9.0 GM/DL 13.7-17.5 gsag=310) HEMATOCRIT (BEAKER) (test 28.8 % 40.1-51.0 tebo=402) MEAN CORPUSCULAR VOLUME 88.1 fL 79.0-92.2 (BEAKER) (test hqzo=904) MEAN CORPUSCULAR HEMOGLOBIN 27.5 pg 25.7-32.2 (BEAKER) (test awja=686) MEAN CORPUSCULAR HEMOGLOBIN 31.3 GM/DL 32.3-36.5 CONC (BEAKER) (test phbu=611) RED CELL DISTRIBUTION WIDTH 15.6 % 11.6-14.4 (BEAKER) (test lbqz=694) PLATELET COUNT (BEAKER) (test 177 K/CU MM 150-450 Discordant PLT results pexu=575) compared to previous results; clinical correlation required. MEAN PLATELET VOLUME (BEAKER) 12.0 fL 9.4-12.4 (test jsmm=194) NUCLEATED RED BLOOD CELLS 0 /100 WBC 0-0 (BEAKER) (test qlkm=944) CALCIUM, [id number] 04:27:00 Test Item Value Reference Range Comments CALCIUM IONIZED (BEAKER) (test nyam=484) 1.21 mmol/L 1.12-1.27 PH, BLOOD (BEAKER) (test nvfo=9364) 7.44 RAD, CHEST, 1 VIEW, NON [id number] 04:27:00while patient is intubated or has chest tubes.Reason for exam:->Status post CV SurgeryShould thisbe performed at the bedside?->YesFINAL REPORT RAD, CHEST , 1 VIEW, NON DEPT INDICATION: Status post CV Surgery COMPARISON: Prior day's exam FINDINGS: Portable frontal view of the chest. IMPRESSION: Lungs and pleura: Unchanged airspace and pleural opacities. No pneumothorax.Heart and mediastinum: Stable contours. Stable surgical changes.Additional findings: None. Signed: Noemy De La Paz [facility] Verified Date/Time: 11/03/2018 04:27 :49 04:27 AMPOCT-GLUCOSE [id number] 23:42:00 Test Item Value Reference Range Comments POC-GLUCOSE METER (BEAKER) 117 mg/dL 70-110 TESTED AT [address] (test rxcn=5535) [place] [id number] HEMOGLOBIN AND [id number] 17:59:00 Test Item Value Reference Range Comments HEMOGLOBIN (BEAKER) (test jiyo=462) 8.4 GM/DL 13.7-17.5 HEMATOCRIT (BEAKER) (test axmx=418) 27.3 % 40.1-51.0 POCT-GLUCOSE [id number] 17:50:00 Test Item Value Reference Range Comments POC-GLUCOSE METER (BEAKER) 184 mg/dL 70-110 TESTED AT [address] (test fhow=5740) [place] [address] POCT-GLUCOSE [id number] 12:27:00 Test Item Value Reference Range Comments POC-GLUCOSE METER (BEAKER) 138 mg/dL 70-110 TESTED AT [address] (test oucf=7222) [place] [address] RAD, CHEST, 1 VIEW, NON [id number] 07:43:00while patient is intubated or has chest tubes.Reason for exam:->Status post CV SurgeryShould thisbe performed at the bedside?->YesFINAL REPORT Chest dated 11/02/2018 COMPARISON: 11/01/2018 Clinical Information: Status post CV Surgery Comment: Heart is enlarged. Pulmonary vasculature is indistinct. Subsegmental atelectasis is seen in the left upper and lower lobe. The right lung is clear. Previously noted [place] catheter has been removed. Left chest tube and right IJ central venous catheter remain in place. No pneumothorax is seen. Signed: Fernando Thomas MDReport Verified Date/Time: 11/02/2018 07:43:56 Reading Location: [facility] B1 C013X Ortho Consult Reading Room TSH/FREE T4 IF [id number] 04:55:00 Test Item Value Reference Range Comments THYROID STIMULATING HORMONE (BEAKER) (test 1.19 uIU/mL 0.35-4.94 zgle=854) [id number] 04:35:00 Test Item Value Reference Range Comments PHOSPHORUS (BEAKER) (test fora=610) 2.6 mg/dL 2.3-4.7 [id number] 04:35:00 Test Item Value Reference Range Comments MAGNESIUM (BEAKER) (test coyl=348) 2.3 mg/dL 1.6-2.6 BASIC METABOLIC [id number] 04:35:00 Test Item Value Reference Range Comments SODIUM (BEAKER) (test 138 meq/L 136-145 uztf=225) POTASSIUM (BEAKER) (test 4.5 meq/L 3.5-5.1 nvcm=103) CHLORIDE (BEAKER) (test 107 meq/L 98-107 ocoz=374) CO2 (BEAKER) (test 27 meq/L 22-29 sbsq=972) BLOOD UREA NITROGEN 29 mg/dL 7-21 (BEAKER) (test srzr=452) CREATININE (BEAKER) (test 0.88 mg/dL 0.57-1.25 ngkr=225) GLUCOSE RANDOM (BEAKER) 131 mg/dL 70-105 (test daop=529) CALCIUM (BEAKER) (test 8.9 mg/dL 8.4-10.2 omrr=526) EGFR (BEAKER) (test 85 mL/min/1.73 sq m ESTIMATED GFR IS NOT ipgu=3079) ACCURATE CREATININE CLEARANCE IN PREDICTING GLOMERULAR FILTRATION RATE. ESTIMATED GFR IS NOT APPLICABLE FOR DIALYSIS PATIENTS. OXYGEN SATURATION, [id number] 04:31:00 Test Item Value Reference Range Comments O2 SATURATION (MEASURED) (BEAKER) (test gfef=4926) 76.3 % CBC (HEMOGRAM ONLY)2018-11-02 04:23:00 Test Item Value Reference Range Comments WHITE BLOOD CELL COUNT (BEAKER) (test wbdn=218) 16.0 K/ L 3.5-10.5 RED BLOOD CELL COUNT (BEAKER) (test sieq=630) 2.78 M/ L 4.63-6.08 HEMOGLOBIN (BEAKER) (test mtxw=567) 7.3 GM/DL 13.7-17.5 HEMATOCRIT (BEAKER) (test jaid=282) 24.5 % 40.1-51.0 MEAN CORPUSCULAR VOLUME (BEAKER) (test xbyv=080) 88.1 fL 79.0-92.2 MEAN CORPUSCULAR HEMOGLOBIN (BEAKER) (test 26.3 pg 25.7-32.2 mwsk=488) MEAN CORPUSCULAR HEMOGLOBIN CONC (BEAKER) (test 29.8 GM/DL 32.3-36.5 dpcq=741) RED CELL DISTRIBUTION WIDTH (BEAKER) (test 15.8 % 11.6-14.4 mivq=889) PLATELET COUNT (BEAKER) (test rnsp=705) 113 K/CU MM 150-450 MEAN PLATELET VOLUME (BEAKER) (test zgxv=033) 11.7 fL 9.4-12.4 NUCLEATED RED BLOOD CELLS (BEAKER) (test 0 /100 WBC 0-0 ebnx=949) [id number] 23:42:00 Test Item Value Reference Range Comments PHOSPHORUS (BEAKER) (test zfhb=407) 3.0 mg/dL 2.3-4.7 [id number] 23:42:00 Test Item Value Reference Range Comments MAGNESIUM (BEAKER) (test rdlr=183) 2.2 mg/dL 1.6-2.6 BASIC METABOLIC [id number] 23:42:00 Test Item Value Reference Range Comments SODIUM (BEAKER) (test 139 meq/L 136-145 vihs=101) POTASSIUM (BEAKER) (test 5.0 meq/L 3.5-5.1 amtn=352) CHLORIDE (BEAKER) (test 109 meq/L 98-107 bttj=607) CO2 (BEAKER) (test 26 meq/L 22-29 gfmc=497) BLOOD UREA NITROGEN 27 mg/dL 7-21 (BEAKER) (test cpki=406) CREATININE (BEAKER) (test 0.91 mg/dL 0.57-1.25 cqfp=985) GLUCOSE RANDOM (BEAKER) 145 mg/dL 70-105 (test nnrg=734) CALCIUM (BEAKER) (test 8.9 mg/dL 8.4-10.2 pfql=347) EGFR (BEAKER) (test 82 mL/min/1.73 sq m ESTIMATED GFR IS NOT ajxh=8690) ACCURATE CREATININE CLEARANCE IN PREDICTING GLOMERULAR FILTRATION RATE. ESTIMATED GFR IS NOT APPLICABLE FOR DIALYSIS PATIENTS. POCT-GLUCOSE [id number] 23:31:00 Test Item Value Reference Range Comments POC-GLUCOSE METER (BEAKER) 147 mg/dL 70-110 TESTED AT [facility] [address] (test vqfa=5121) [facility] [address] CALCIUM, [id number] 23:04:00 Test Item Value Reference Range Comments CALCIUM IONIZED (BEAKER) (test vqma=745) 1.20 mmol/L 1.12-1.27 PH, BLOOD (BEAKER) (test aitg=2389) 7.42 VANCOMYCIN LEVEL, [id number] 21:11:00 Test Item Value Reference Range Comments VANCOMYCIN TROUGH (BEAKER) (test qaww=301) 12.1 ug/mL 10.0-20.0 DIGOXIN [id number] 08:07:00 Test Item Value Reference Range Comments DIGOXIN LEVEL (BEAKER) (test vvuu=727) 1.1 ng/mL 0.8-2.0 TSH/FREE T4 IF [id number] 08:07:00 Test Item Value Reference Range Comments THYROID STIMULATING HORMONE (BEAKER) (test 0.59 uIU/mL 0.35-4.94 lngk=722) RAD, CHEST, 1 VIEW, NON [id number] 07:32:00while patient is intubated or has chest tubes.Reason for exam:->Status post CV SurgeryShould thisbe performed at the bedside?->YesFINAL REPORT RAD, CHEST , 1 VIEW, NON DEPT CLINICAL INDICATION: Status post CVSurgery COMPARISON: Radiograph 10/31/2018 TECHNIQUE: AP view of the chest FINDINGS: Support devices are unchanged. Lung volumes remain low. No new focal consolidation, pleural effusion, or pneumothorax.Cardiomediastinal silhouette, nury, and pulmonary vasculature are unchanged. IMPRESSION:No significant interval change. Signed: Tiago Juarez Verified Date/Time: 11/01/2018 07:32:02 [id number] 05:25:00 Test Item Value Reference Range Comments PHOSPHORUS (BEAKER) (test uucb=229) 4.5 mg/dL 2.3-4.7 [id number] 05:25:00 Test Item Value Reference Range Comments MAGNESIUM (BEAKER) (test tltm=564) 2.0 mg/dL 1.6-2.6 BASIC METABOLIC [id number] 05:25:00 Test Item Value Reference Range Comments SODIUM (BEAKER) (test 138 meq/L 136-145 tyxq=300) POTASSIUM (BEAKER) (test 4.8 meq/L 3.5-5.1 xbkk=601) CHLORIDE (BEAKER) (test 108 meq/L 98-107 uxfm=072) CO2 (BEAKER) (test 24 meq/L 22-29 wasu=557) BLOOD UREA NITROGEN 20 mg/dL 7-21 (BEAKER) (test udir=161) CREATININE (BEAKER) (test 0.91 mg/dL 0.57-1.25 zbie=693) GLUCOSE RANDOM (BEAKER) 167 mg/dL 70-105 (test qaml=048) CALCIUM (BEAKER) (test 8.6 mg/dL 8.4-10.2 bkwu=352) EGFR (BEAKER) (test 82 mL/min/1.73 sq m ESTIMATED GFR IS NOT narc=0894) ACCURATE CREATININE CLEARANCE IN PREDICTING GLOMERULAR FILTRATION RATE. ESTIMATED GFR IS NOT APPLICABLE FOR DIALYSIS PATIENTS. OXYGEN SATURATION, [id number] 04:47:00 Test Item Value Reference Range Comments O2 SATURATION (MEASURED) (BEAKER) (test zomd=5167) 60.6 % LACTIC ACID, [id number] 04:45:00 Test Item Value Reference Range Comments LACTATE BLOOD ARTERIAL (2) (BEAKER) (test 1.3 mmol/L 0.5-2.2 hwwx=9466) CBC (HEMOGRAM ONLY)2018-11-01 04:40:00 Test Item Value Reference Range Comments WHITE BLOOD CELL COUNT (BEAKER) (test eyot=061) 15.8 K/ L 3.5-10.5 RED BLOOD CELL COUNT (BEAKER) (test gvhb=466) 3.09 M/ L 4.63-6.08 HEMOGLOBIN (BEAKER) (test orkq=331) 8.2 GM/DL 13.7-17.5 HEMATOCRIT (BEAKER) (test rfxv=681) 26.9 % 40.1-51.0 MEAN CORPUSCULAR VOLUME (BEAKER) (test zarc=665) 87.1 fL 79.0-92.2 MEAN CORPUSCULAR HEMOGLOBIN (BEAKER) (test 26.5 pg 25.7-32.2 sugz=993) MEAN CORPUSCULAR HEMOGLOBIN CONC (BEAKER) (test 30.5 GM/DL 32.3-36.5 gjvd=264) RED CELL DISTRIBUTION WIDTH (BEAKER) (test 15.8 % 11.6-14.4 stgk=496) PLATELET COUNT (BEAKER) (test xfac=936) 161 K/CU MM 150-450 MEAN PLATELET VOLUME (BEAKER) (test ddyh=400) 11.5 fL 9.4-12.4 NUCLEATED RED BLOOD CELLS (BEAKER) (test 0 /100 WBC 0-0 pxlu=852) BLOOD GAS, [id number] 04:37:00 Test Item Value Reference Range Comments PH ARTERIAL (BEAKER) (test sibv=146) 7.39 7.35-7.45 PCO2 ARTERIAL (BEAKER) (test bjqd=315) 42 mmHg 35-45 PO2 ARTERIAL (BEAKER) (test uchy=585) 115 mmHg 80-90 O2 SATURATION ARTERIAL (BEAKER) (test kmqh=311) 98.1 % 96.0-97.0 HCO3 ARTERIAL (BEAKER) (test tjog=902) 25 mmol/L 21-29 BASE EXCESS ARTERIAL (BEAKER) (test olzh=146) -0.2 mmol/L -2.0-3.0 PATIENT TEMPERATURE (BEAKER) (test euke=6584) 37.4 C FIO2 (BEAKER) (test eman=8946) 32.0 % RAD, CHEST, 1 VIEW, NON [id number] 23:12:00Reason for exam:->iabp repositionShould this be performed at the bedside?->YesFINAL REPORT RAD, CHEST, 1 VIEW, NON DEPT INDICATION: iabp reposition COMPARISON: Same day's exam FINDINGS: Portable frontal view of the chest. IMPRESSION: Support Lines: Interval repositioning of the intra-aortic balloon pump superior marker terminating 2.2 cm below the superior aspect of the aortic knob. Otherwise unchanged support apparatus. Lungs and pleura: Unchanged airspace and pleural opacities. No pneumothorax.Heart and mediastinum: Stable contours. Stable surgicalchanges.Additional findings: Minimal subcutaneous emphysema over the bilateral chest wall. Surgical clips over the right neck. Signed: Noemy De La Paz Verified Date/Time: 10/31/2018 23:12:48 LACTIC ACID, [id number] 21:33:00 Test Item Value Reference Range Comments LACTATE BLOOD ARTERIAL (2) (BEAKER) (test 1.1 mmol/L 0.5-2.2 fvlr=7608) RAD, CHEST, 1 VIEW, NON [id number] 21:22:00Reason for exam:->iabp placement/adjustmentShould this be performed at the bedside?->YesFINAL REPORT RAD, CHEST, 1 VIEW, NON DEPT INDICATION: iabp placement/adjustment COMPARISON: October 31, 2018 FINDINGS: Portable frontal view of the chest. IMPRESSION: Support Lines: IABP marker projects over the apex of the aortic arch, consider repositioning 2 cm caudally along the course of the descending aorta. Right IJ [place] catheter tip projects over the main pulmonary artery, stable in appearance. Interval extubation and removal of enteric tube. Left chest tube is stable. Lungs and pleura: Retrocardiac and left lung base opacities with air bronchograms suggestive of atelectasis or pneumonia, stable. Low lung volumes. Stable perihilar interstitial opacities. No pneumothorax.Heart and mediastinum: Stable enlarged cardiac silhouette. Additional findings: None. Signed: Marcus Leeort Verified Date/Time: 10/31/2018 21:22:46 BLOOD GAS, [id number] 21:14:00 Test Item Value Reference Range Comments PH ARTERIAL (BEAKER) (test cnud=533) 7.44 7.35-7.45 PCO2 ARTERIAL (BEAKER) (test cawb=125) 36 mmHg 35-45 PO2 ARTERIAL (BEAKER) (test vhlm=109) 152 mmHg 80-90 O2 SATURATION ARTERIAL (BEAKER) (test quer=316) 99.0 % 96.0-97.0 HCO3 ARTERIAL (BEAKER) (test cupc=541) 24 mmol/L 21-29 BASE EXCESS ARTERIAL (BEAKER) (test zszg=257) -0.2 mmol/L -2.0-3.0 PATIENT TEMPERATURE (BEAKER) (test jzky=9896) 37.7 C FIO2 (BEAKER) (test abap=8726) 32.0 % GLUCOSE-STAT [id number] 21:14:00 Test Item Value Reference Range Comments GLUCOSE RANDOM (BEAKER) (test bnsu=651) 156 mg/dL 70-110 HGB/HCT (H&H) - STAT [id number] 21:14:00 Test Item Value Reference Range Comments HEMOGLOBIN (BEAKER) (test uyze=271) 8.7 g/dL 13.0-16.8 HEMATOCRIT (BEAKER) (test jiym=339) 26.0 % 40.0-50.0 CALCIUM, [id number] 21:14:00 Test Item Value Reference Range Comments CALCIUM IONIZED (BEAKER) (test xbxj=291) 1.19 mmol/L 1.12-1.27 PH, BLOOD (BEAKER) (test ohfl=4340) 7.44 SODIUM NA-STAT [id number] 21:13:00 Test Item Value Reference Range Comments SODIUM (BEAKER) (test znzj=349) 136 meq/L 135-148 POTASSIUM-STAT [id number] 21:13:00 Test Item Value Reference Range Comments POTASSIUM (BEAKER) (test ooet=693) 4.4 meq/L 3.6-5.5 SODIUM NA-STAT [id number] 18:46:00 Test Item Value Reference Range Comments SODIUM (BEAKER) (test vtip=280) 136 meq/L 135-148 POTASSIUM-STAT [id number] 18:46:00 Test Item Value Reference Range Comments POTASSIUM (BEAKER) (test ikmi=027) 4.3 meq/L 3.6-5.5 HGB/HCT (H&H) - STAT [id number] 18:46:00 Test Item Value Reference Range Comments HEMOGLOBIN (BEAKER) (test tefl=989) 8.8 g/dL 13.0-16.8 HEMATOCRIT (BEAKER) (test ofox=514) 26.0 % 40.0-50.0 GLUCOSE-STAT [id number] 18:46:00 Test Item Value Reference Range Comments GLUCOSE RANDOM (BEAKER) (test yutd=061) 167 mg/dL 70-110 BLOOD GAS, [id number] 18:46:00 Test Item Value Reference Range Comments PH ARTERIAL (BEAKER) (test lulm=390) 7.44 7.35-7.45 PCO2 ARTERIAL (BEAKER) (test hawi=948) 38 mmHg 35-45 PO2 ARTERIAL (BEAKER) (test sxsc=158) 118 mmHg 80-90 O2 SATURATION ARTERIAL (BEAKER) (test regi=146) 98.3 % 96.0-97.0 HCO3 ARTERIAL (BEAKER) (test yorw=457) 25 mmol/L 21-29 BASE EXCESS ARTERIAL (BEAKER) (test tlig=114) 1.2 mmol/L -2.0-3.0 PATIENT TEMPERATURE (BEAKER) (test xhni=3697) 37.8 C FIO2 (BEAKER) (test cjjo=2367) 40.0 % CBC W/PLT COUNT & AUTO [id number] 16:50:00 Test Item Value Reference Range Comments WHITE BLOOD CELL COUNT (BEAKER) (test tbea=362) 27.7 K/ L 3.5-10.5 RED BLOOD CELL COUNT (BEAKER) (test iudm=254) 3.27 M/ L 4.63-6.08 HEMOGLOBIN (BEAKER) (test abdf=935) 8.8 GM/DL 13.7-17.5 HEMATOCRIT (BEAKER) (test mrch=490) 28.5 % 40.1-51.0 MEAN CORPUSCULAR VOLUME (BEAKER) (test hczz=655) 87.2 fL 79.0-92.2 MEAN CORPUSCULAR HEMOGLOBIN (BEAKER) (test 26.9 pg 25.7-32.2 qkzj=375) MEAN CORPUSCULAR HEMOGLOBIN CONC (BEAKER) (test 30.9 GM/DL 32.3-36.5 lejl=588) RED CELL DISTRIBUTION WIDTH (BEAKER) (test 15.8 % 11.6-14.4 ztsg=126) PLATELET COUNT (BEAKER) (test erib=990) 159 K/CU MM 150-450 MEAN PLATELET VOLUME (BEAKER) (test yiih=642) 12.1 fL 9.4-12.4 NUCLEATED RED BLOOD CELLS (BEAKER) (test 0 /100 WBC 0-0 llvc=644) (CELLAVISION MANUAL DIFF)2018-10-31 16:50:00 Test Item Value Reference Range Comments NEUTROPHILS - REL (CELLAVISION)(BEAKER) (test 76 % xwko=3982) LYMPHOCYTES - REL (CELLAVISION)(BEAKER) (test 13 % slec=0019) MONOCYTES - REL (CELLAVISION)(BEAKER) (test 2 % ujku=2190) EOSINOPHILS - REL (CELLAVISION)(BEAKER) (test 5 % gahq=4120) BASOPHILS - REL (CELLAVISION)(BEAKER) (test 1 % chih=9622) BANDS - REL (CELLAVISION)(BEAKER) (test 2 % 0-10 yeyl=2714) NEUTROPHILS - ABS (CELLAVISION)(BEAKER) (test 21.05 K/ul 1.78-5.38 qomd=7492) LYMPHOCYTES - ABS (CELLAVISION)(BEAKER) (test 3.60 K/ul 1.32-3.57 uvug=1957) MONOCYTES - ABS (CELLAVISION)(BEAKER) (test 0.55 K/uL 0.30-0.82 vwyw=4912) EOSINOPHILS - ABS (CELLAVISION)(BEAKER) (test 1.39 K/uL 0.04-0.54 rywa=1625) BASOPHILS - ABS (CELLAVISION)(BEAKER) (test 0.28 K/uL 0.01-0.08 flky=6134) BANDS - ABS (CELLAVISION)(BEAKER) (test 0.55 K/uL 0.00-0.80 ubad=2243) TOTAL COUNTED (BEAKER) (test lwtt=1059) 100 RBC MORPHOLOGY (BEAKER) (test yjcq=114) Normal WBC MORPHOLOGY (BEAKER) (test yyab=490) Normal PLT MORPHOLOGY (BEAKER) (test bgtb=817) Normal ARTIFACT (CELLAVISION)(BEAKER) (test conc=5509) Present PLATELET CONCENTRATION (CELLAVISION)(BEAKER) Adequate (test vqbf=3111) Received comment: User comments: Slide comments:POCT-GLUCOSE [id number] 16: 40:00 Test Item Value Reference Range Comments POC-GLUCOSE METER (BEAKER) 158 mg/dL 70-110 TESTED AT [facility] [address] (test vrww=2448) [facility] [address] [id number] 15:00:00 Test Item Value Reference Range Comments PHOSPHORUS (BEAKER) (test mxem=289) 4.0 mg/dL 2.3-4.7 [id number] 15:00:00 Test Item Value Reference Range Comments MAGNESIUM (BEAKER) (test rdfm=975) 2.4 mg/dL 1.6-2.6 BASIC METABOLIC [id number] 15:00:00 Test Item Value Reference Range Comments SODIUM (BEAKER) (test 138 meq/L 136-145 ilvz=365) POTASSIUM (BEAKER) (test 4.3 meq/L 3.5-5.1 ndrk=554) CHLORIDE (BEAKER) (test 109 meq/L 98-107 gqlp=237) CO2 (BEAKER) (test 23 meq/L 22-29 bzvf=333) BLOOD UREA NITROGEN 16 mg/dL 7-21 (BEAKER) (test pqfu=304) CREATININE (BEAKER) (test 0.78 mg/dL 0.57-1.25 jajy=349) GLUCOSE RANDOM (BEAKER) 173 mg/dL 70-105 (test qhsz=011) CALCIUM (BEAKER) (test 9.4 mg/dL 8.4-10.2 nzao=045) EGFR (BEAKER) (test 98 mL/min/1.73 sq m ESTIMATED GFR IS NOT xocf=0663) ACCURATE CREATININE CLEARANCE IN PREDICTING GLOMERULAR FILTRATION RATE. ESTIMATED GFR IS NOT APPLICABLE FOR DIALYSIS PATIENTS. HEPATIC FUNCTION [id number] 15:00:00 Test Item Value Reference Range Comments TOTAL PROTEIN (BEAKER) (test vrrl=639) 5.1 gm/dL 6.0-8.3 ALBUMIN (BEAKER) (test hsnl=9935) 2.9 g/dL 3.5-5.0 BILIRUBIN TOTAL (BEAKER) (test vcle=851) 0.9 mg/dL 0.2-1.2 BILIRUBIN DIRECT (BEAKER) (test kdaa=868) 0.4 mg/dL 0.1-0.5 ALKALINE PHOSPHATASE (BEAKER) (test uaqj=335) 59 U/L 40-150 AST (SGOT) (BEAKER) (test iwwj=030) 51 U/L 5-34 ALT (SGPT) (BEAKER) (test cixc=779) 14 U/L 6-55 LACTIC ACID, [id number] 14:55:00 Test Item Value Reference Range Comments LACTATE BLOOD ARTERIAL (2) (BEAKER) (test 1.4 mmol/L 0.5-2.2 zema=3673) [id number] 14:54:00 Test Item Value Reference Range Comments PROTIME (BEAKER) (test pree=730) 18.5 seconds 11.9-14.2 INR (BEAKER) (test nqou=087) 1.6 <=5.9 PARTIAL THROMBOPLASTIN TIME (BEAKER) (test 32.5 seconds 22.5-36.0 wrdx=464) Effective 08/06/2018: PT Reference Range ChangeNew: 11.9-14.2 Previous: 11.7- 14.7RECOMMENDED COUMADIN/WARFARIN INR THERAPY RANGESSTANDARD DOSE: 2.0-3.0 Includes: PROPHYLAXIS for venous thrombosis, systemic embolization; TREATMENT for venous thrombosis and/or pulmonary embolus.HIGH RISK: Target INR is2.5-3.5 for patients wiht mechanical heart valves.CBC (HEMOGRAM ONLY)2018-10-31 14:43:00 Test Item Value Reference Range Comments WHITE BLOOD CELL COUNT (BEAKER) (test nuib=595) 22.3 K/ L 3.5-10.5 RED BLOOD CELL COUNT (BEAKER) (test xvft=764) 3.56 M/ L 4.63-6.08 HEMOGLOBIN (BEAKER) (test vlhd=964) 9.5 GM/DL 13.7-17.5 HEMATOCRIT (BEAKER) (test oyyz=097) 30.9 % 40.1-51.0 MEAN CORPUSCULAR VOLUME (BEAKER) (test gzit=206) 86.8 fL 79.0-92.2 MEAN CORPUSCULAR HEMOGLOBIN (BEAKER) (test 26.7 pg 25.7-32.2 pdny=466) MEAN CORPUSCULAR HEMOGLOBIN CONC (BEAKER) (test 30.7 GM/DL 32.3-36.5 jrjy=983) RED CELL DISTRIBUTION WIDTH (BEAKER) (test 15.6 % 11.6-14.4 tbhg=199) PLATELET COUNT (BEAKER) (test jmui=102) 149 K/CU MM 150-450 MEAN PLATELET VOLUME (BEAKER) (test nsym=498) 11.0 fL 9.4-12.4 NUCLEATED RED BLOOD CELLS (BEAKER) (test 0 /100 WBC 0-0 etju=098) GLUCOSE-STAT [id number] 14:38:00 Test Item Value Reference Range Comments GLUCOSE RANDOM (BEAKER) (test xhxh=164) 176 mg/dL 70-110 HGB/HCT (H&H) - STAT [id number] 14:38:00 Test Item Value Reference Range Comments HEMOGLOBIN (BEAKER) (test aaxp=304) 9.9 g/dL 13.0-16.8 HEMATOCRIT (BEAKER) (test yjpm=882) 29.0 % 40.0-50.0 SODIUM NA-STAT [id number] 14:37:00 Test Item Value Reference Range Comments SODIUM (BEAKER) (test xnin=869) 138 meq/L 135-148 POTASSIUM-STAT [id number] 14:37:00 Test Item Value Reference Range Comments POTASSIUM (BEAKER) (test lbub=889) 4.1 meq/L 3.6-5.5 BLOOD GAS, [id number] 14:37:00 Test Item Value Reference Range Comments PH ARTERIAL (BEAKER) (test euxr=992) 7.42 7.35-7.45 PCO2 ARTERIAL (BEAKER) (test jzyt=935) 39 mmHg 35-45 PO2 ARTERIAL (BEAKER) (test duyu=899) 116 mmHg 80-90 O2 SATURATION ARTERIAL (BEAKER) (test njub=420) 98.4 % 96.0-97.0 HCO3 ARTERIAL (BEAKER) (test vynn=828) 25 mmol/L 21-29 BASE EXCESS ARTERIAL (BEAKER) (test samh=430) 0.2 mmol/L -2.0-3.0 PATIENT TEMPERATURE (BEAKER) (test juci=5582) 36.1 C FIO2 (BEAKER) (test kvyi=5590) 60.0 % OXYGEN SATURATION, [id number] 14:36:00 Test Item Value Reference Range Comments O2 SATURATION (MEASURED) (BEAKER) (test vcka=9664) 69.5 % CALCIUM, [id number] 14:36:00 Test Item Value Reference Range Comments CALCIUM IONIZED (BEAKER) (test nrmv=431) 1.27 mmol/L 1.12-1.27 PH, BLOOD (BEAKER) (test fmqn=5645) 7.40 RAD, CHEST, 1 VIEW, NON [id number] 14:31:00Reason for exam:->s/p intubationShould this be performed at the bedside?->YesFINAL REPORT RAD, CHEST, 1 VIEW, NON DEPT INDICATION: s/p intubation COMPARISON: Prior day's exam FINDINGS: Portable frontal view of the chest. IMPRESSION: Support Lines: Interval insertion of ET tube with tip 3 cm superior to the prashanth. IABP marker is at the aortic notch and positioning 2 cm toward the feet is recommended. [place] catheter tip overlies the pulmonary outflow tract. NG tube descends below the diaphragm. Lungs and pleura: Unchanged airspace and pleural opacities. No pneumothorax.Heart and mediastinum : Stable contours. Additional findings: None. Signed: Medardo Serrato MDReport Verified Date/Time: 10/31/2018 14:31:36 Reading Location: [facility] Radiology Reading Room THROMBOELASTOGRAPH (TEG)2018-10-31 13:12:00 Test Item Value Reference Range Comments TEG ACTIVATED CLOTTING TIME (BEAKER) (test 11.2 minutes 4.0-7.0 ltpo=1889) TEG FIBRINOGEN ACTIVITY (BEAKER) (test 58.6 degrees 61.0-73.0 aemr=2348) TEG PLT. AGGREGATION (BEAKER) (test dkup=0456) 61.6 MM 55.0-65.0 TGH ACTIVATED CLOTTING TIME (BEAKER) (test 10.6 minutes 4.0-7.0 rvuc=3870) TGH FIBRINOGEN ACTIVITY (BEAKER) (test 50.2 degrees 61.0-73.0 orjm=0957) TGH PLT. AGGREGATION (BEAKER) (test fshv=1496) 58.6 MM 55.0-65.0 [id number] 12:45:00 Test Item Value Reference Range Comments ACTIVATED CLOTTING TIME 114 sec TESTED AT [address] ([facility]) (test qibl=957) [place] [id number] 12:45:00 Test Item Value Reference Range Comments ACTIVATED CLOTTING TIME 450 sec TESTED AT [address] ([facility]) (test ucuf=254) [place] [address] [id number] 12:45:00 Test Item Value Reference Range Comments ACTIVATED CLOTTING TIME 483 sec TESTED AT [address] ([facility]) (test ekzz=638) [place] [address] [id number] 12:45:00 Test Item Value Reference Range Comments ACTIVATED CLOTTING TIME 444 sec TESTED AT [address] ([facility]) (test bxfk=279) [place] [address] [id number] 12:45:00 Test Item Value Reference Range Comments ACTIVATED CLOTTING TIME 433 sec TESTED AT [address] ([facility]) (test mfqk=285) [place] [address] [id number] 12:45:00 Test Item Value Reference Range Comments ACTIVATED CLOTTING TIME 417 sec TESTED AT [address] ([facility]) (test vjjn=081) [place] [address] [id number] 12:36:00 Test Item Value Reference Range Comments FIBRINOGEN LEVEL ([facility]) (test ywwm=690) 281 mg/dl 225-434 [id number] 12:36:00 Test Item Value Reference Range Comments PARTIAL THROMBOPLASTIN TIME ([facility]) (test 31.9 seconds 22.5-36.0 cmms=491) PROTHROMBIN TIME/[id number] 12:35:00 Test Item Value Reference Range Comments PROTIME ([facility]) (test ucop=101) 21.9 seconds 11.9-14.2 INR ([facility]) (test ohks=190) 2.0 <=5.9 Effective 08/06/2018: PT Reference Range ChangeNew: 11.9-14.2 Previous: 11.7- 14.7RECOMMENDED COUMADIN/WARFARIN INR THERAPY RANGESSTANDARD DOSE: 2.0-3.0 Includes: PROPHYLAXIS for venous thrombosis, systemic embolization; TREATMENT for venous thrombosis and/or pulmonary embolus.HIGH RISK: Target INR is2.5-3.5 for patients wiht mechanical heart valves.PLATELET [id number] 12:27:00 Test Item Value Reference Range Comments PLATELET COUNT (BEAKER) (test pnwp=086) 162 K/CU MM 150-450 BLOOD GAS, [id number] 12:24:00 Test Item Value Reference Range Comments PH ARTERIAL (BEAKER) (test ahac=127) 7.38 7.35-7.45 PCO2 ARTERIAL (BEAKER) (test zdlb=665) 41 mmHg 35-45 PO2 ARTERIAL (BEAKER) (test ybvu=032) 367 mmHg 80-90 O2 SATURATION ARTERIAL (BEAKER) (test kmqn=436) 99.8 % 96.0-97.0 HCO3 ARTERIAL (BEAKER) (test aktg=326) 24 mmol/L 21-29 BASE EXCESS ARTERIAL (BEAKER) (test cwso=715) -1.4 mmol/L -2.0-3.0 PATIENT TEMPERATURE (BEAKER) (test kxjd=5535) 35.2 C FIO2 (BEAKER) (test qhkp=2996) 100.0 % GLUCOSE-STAT [id number] 12:24:00 Test Item Value Reference Range Comments GLUCOSE RANDOM (BEAKER) (test wdji=466) 227 mg/dL 70-110 HGB/HCT (H&H) - STAT [id number] 12:24:00 Test Item Value Reference Range Comments HEMOGLOBIN (BEAKER) (test upyo=250) 10.7 g/dL 13.0-16.8 HEMATOCRIT (BEAKER) (test iukr=462) 31.0 % 40.0-50.0 CALCIUM, [id number] 12:24:00 Test Item Value Reference Range Comments CALCIUM IONIZED (BEAKER) (test cnjl=506) 1.36 mmol/L 1.12-1.27 PH, BLOOD (BEAKER) (test tjyx=2974) 7.36 SODIUM NA-STAT [id number] 12:21:00 Test Item Value Reference Range Comments SODIUM (BEAKER) (test yyow=708) 137 meq/L 135-148 POTASSIUM-STAT [id number] 12:21:00 Test Item Value Reference Range Comments POTASSIUM (BEAKER) (test xodz=789) 3.5 meq/L 3.6-5.5 PLATELET AGGREGATION: FUNCTION [id number] 11:59:00 Test Item Value Reference Range Comments [id number] (BEAKER) Jessica Ferguson MD (electronic (test zcrh=6410) signature) PLATELET COUNT AGG (BEAKER) 237 K/CU MM 150-450 (test odkk=6930) PLATELET RICH PLASMA(BEAKER) 242 k/cu mm 200-300 (test dflq=3243) PLATELET FUNCTION SCREEN Pattern of disaggregation INTERPRETATION (BEAKER) (test present which may be xvcq=9662) characteristic of P2Y12 inhibitor effect. Correlation with medication history is required. Platelet Function Screen results may be falsely low with platelet counts<75, 000/cu mm.POTASSIUM-STAT [id number] 11:00:00 Test Item Value Reference Range Comments POTASSIUM (BEAKER) (test ibqz=291) 5.5 meq/L 3.6-5.5 BLOOD GAS, [id number] 11:00:00 Test Item Value Reference Range Comments PH ARTERIAL (BEAKER) (test fzbt=690) 7.40 7.35-7.45 PCO2 ARTERIAL (BEAKER) (test yyut=736) 41 mmHg 35-45 PO2 ARTERIAL (BEAKER) (test kkud=798) 283 mmHg 80-90 O2 SATURATION ARTERIAL (BEAKER) (test mjkn=081) 99.7 % 96.0-97.0 HCO3 ARTERIAL (BEAKER) (test mfex=908) 25 mmol/L 21-29 BASE EXCESS ARTERIAL (BEAKER) (test vivl=520) 0.2 mmol/L -2.0-3.0 PATIENT TEMPERATURE (BEAKER) (test wvca=6960) 35.5 C FIO2 (BEAKER) (test dhcz=2570) 70.0 % SODIUM NA-STAT [id number] 11:00:00 Test Item Value Reference Range Comments SODIUM (BEAKER) (test pwkz=928) 133 meq/L 135-148 GLUCOSE-STAT [id number] 11:00:00 Test Item Value Reference Range Comments GLUCOSE RANDOM (BEAKER) (test qixa=752) 248 mg/dL 70-110 HGB/HCT (H&H) - STAT [id number] 11:00:00 Test Item Value Reference Range Comments HEMOGLOBIN (BEAKER) (test tdtm=658) 8.7 g/dL 13.0-16.8 HEMATOCRIT (BEAKER) (test uaky=426) 26.0 % 40.0-50.0 SODIUM NA-STAT [id number] 10:36:00 Test Item Value Reference Range Comments SODIUM (BEAKER) (test vizz=733) 135 meq/L 135-148 POTASSIUM-STAT [id number] 10:36:00 Test Item Value Reference Range Comments POTASSIUM (BEAKER) (test ooem=958) 5.2 meq/L 3.6-5.5 BLOOD GAS, [id number] 10:36:00 Test Item Value Reference Range Comments PH ARTERIAL (BEAKER) (test tzij=158) 7.38 7.35-7.45 PCO2 ARTERIAL (BEAKER) (test mirr=644) 43 mmHg 35-45 PO2 ARTERIAL (BEAKER) (test grzn=428) 300 mmHg 80-90 O2 SATURATION ARTERIAL (BEAKER) (test jfxi=181) 99.7 % 96.0-97.0 HCO3 ARTERIAL (BEAKER) (test ejur=376) 27 mmol/L 21-29 BASE EXCESS ARTERIAL (BEAKER) (test cmmb=554) 0.2 mmol/L -2.0-3.0 PATIENT TEMPERATURE (BEAKER) (test lzdr=9226) 30.4 C FIO2 (BEAKER) (test xqdp=7937) 65.0 % GLUCOSE-STAT [id number] 10:36:00 Test Item Value Reference Range Comments GLUCOSE RANDOM (BEAKER) (test kmzd=492) 248 mg/dL 70-110 HGB/HCT (H&H) - STAT [id number] 10:36:00 Test Item Value Reference Range Comments HEMOGLOBIN (BEAKER) (test zplm=204) 9.9 g/dL 13.0-16.8 HEMATOCRIT (BEAKER) (test iasn=259) 29.0 % 40.0-50.0 SODIUM NA-STAT [id number] 10:05:00 Test Item Value Reference Range Comments SODIUM (BEAKER) (test hgzv=826) 136 meq/L 135-148 POTASSIUM-STAT [id number] 10:05:00 Test Item Value Reference Range Comments POTASSIUM (BEAKER) (test pjva=334) 4.5 meq/L 3.6-5.5 BLOOD GAS, [id number] 10:05:00 Test Item Value Reference Range Comments PH ARTERIAL (BEAKER) (test bmgw=811) 7.38 7.35-7.45 PCO2 ARTERIAL (BEAKER) (test qjpg=204) 46 mmHg 35-45 PO2 ARTERIAL (BEAKER) (test gxie=406) 310 mmHg 80-90 O2 SATURATION ARTERIAL (BEAKER) (test khfn=211) 99.7 % 96.0-97.0 HCO3 ARTERIAL (BEAKER) (test cnbs=938) 28 mmol/L 21-29 BASE EXCESS ARTERIAL (BEAKER) (test bllr=930) 1.0 mmol/L -2.0-3.0 PATIENT TEMPERATURE (BEAKER) (test tgfv=3628) 30.6 C FIO2 (BEAKER) (test mbiz=6908) 65.0 % GLUCOSE-STAT [id number] 10:05:00 Test Item Value Reference Range Comments GLUCOSE RANDOM (BEAKER) (test uqfd=788) 214 mg/dL 70-110 HGB/HCT (H&H) - STAT [id number] 10:05:00 Test Item Value Reference Range Comments HEMOGLOBIN (BEAKER) (test egik=610) 9.5 g/dL 13.0-16.8 HEMATOCRIT (BEAKER) (test snfl=529) 28.0 % 40.0-50.0 BLOOD GAS, [id number] 09:41:00 Test Item Value Reference Range Comments PH ARTERIAL (BEAKER) (test yzfy=199) 7.44 7.35-7.45 PCO2 ARTERIAL (BEAKER) (test kguy=215) 37 mmHg 35-45 PO2 ARTERIAL (BEAKER) (test vfoe=716) 350 mmHg 80-90 O2 SATURATION ARTERIAL (BEAKER) (test hbeg=075) 99.8 % 96.0-97.0 HCO3 ARTERIAL (BEAKER) (test ziri=046) 26 mmol/L 21-29 BASE EXCESS ARTERIAL (BEAKER) (test momh=682) 0.4 mmol/L -2.0-3.0 PATIENT TEMPERATURE (BEAKER) (test bxga=2266) 31.0 C FIO2 (BEAKER) (test jtir=5735) 70.0 % GLUCOSE-STAT [id number] 09:41:00 Test Item Value Reference Range Comments GLUCOSE RANDOM (BEAKER) (test cxex=437) 176 mg/dL 70-110 HGB/HCT (H&H) - STAT [id number] 09:41:00 Test Item Value Reference Range Comments HEMOGLOBIN (BEAKER) (test swjo=184) 10.0 g/dL 13.0-16.8 HEMATOCRIT (BEAKER) (test wdou=923) 29.0 % 40.0-50.0 SODIUM NA-STAT [id number] 09:40:00 Test Item Value Reference Range Comments SODIUM (BEAKER) (test pfja=624) 136 meq/L 135-148 POTASSIUM-STAT [id number] 09:40:00 Test Item Value Reference Range Comments POTASSIUM (BEAKER) (test jrqg=834) 3.9 meq/L 3.6-5.5 BLOOD GAS, [id number] 08:47:00 Test Item Value Reference Range Comments PH ARTERIAL (BEAKER) (test luox=586) 7.47 7.35-7.45 PCO2 ARTERIAL (BEAKER) (test efmb=028) 35 mmHg 35-45 PO2 ARTERIAL (BEAKER) (test jqrp=661) 372 mmHg 80-90 O2 SATURATION ARTERIAL (BEAKER) (test wbii=693) 99.8 % 96.0-97.0 HCO3 ARTERIAL (BEAKER) (test macv=625) 25 mmol/L 21-29 BASE EXCESS ARTERIAL (BEAKER) (test ipbx=546) 1.4 mmol/L -2.0-3.0 PATIENT TEMPERATURE (BEAKER) (test bccx=4480) 36.0 C FIO2 (BEAKER) (test ubwh=2121) 100.0 % GLUCOSE-STAT [id number] 08:47:00 Test Item Value Reference Range Comments GLUCOSE RANDOM (BEAKER) (test iair=972) 135 mg/dL 70-110 HGB/HCT (H&H) - STAT [id number] 08:47:00 Test Item Value Reference Range Comments HEMOGLOBIN (BEAKER) (test tbbq=392) 12.4 g/dL 13.0-16.8 HEMATOCRIT (BEAKER) (test dajd=507) 36.0 % 40.0-50.0 SODIUM NA-STAT [id number] 08:46:00 Test Item Value Reference Range Comments SODIUM (BEAKER) (test qloi=009) 136 meq/L 135-148 POTASSIUM-STAT [id number] 08:46:00 Test Item Value Reference Range Comments POTASSIUM (BEAKER) (test zgzx=619) 3.6 meq/L 3.6-5.5 CALCIUM, [id number] 08:46:00 Test Item Value Reference Range Comments CALCIUM IONIZED (BEAKER) (test lifg=964) 1.17 mmol/L 1.12-1.27 PH, BLOOD (BEAKER) (test olga=1449) 7.45 HEPATIC FUNCTION [id number] 05:56:00 Test Item Value Reference Range Comments TOTAL PROTEIN (BEAKER) (test mnch=688) 7.0 gm/dL 6.0-8.3 ALBUMIN (BEAKER) (test viwp=7353) 3.9 g/dL 3.5-5.0 BILIRUBIN TOTAL (BEAKER) (test pvuk=787) 0.5 mg/dL 0.2-1.2 BILIRUBIN DIRECT (BEAKER) (test setf=777) 0.2 mg/dL 0.1-0.5 ALKALINE PHOSPHATASE (BEAKER) (test yhdm=097) 80 U/L 40-150 AST (SGOT) (BEAKER) (test pyzd=600) 37 U/L 5-34 ALT (SGPT) (BEAKER) (test utln=940) 14 U/L 6-55 BASIC METABOLIC [id number] 05:56:00 Test Item Value Reference Range Comments SODIUM (BEAKER) (test 138 meq/L 136-145 dbyz=347) POTASSIUM (BEAKER) (test 4.0 meq/L 3.5-5.1 ndpp=036) CHLORIDE (BEAKER) (test 103 meq/L 98-107 dxan=501) CO2 (BEAKER) (test 26 meq/L 22-29 wavh=723) BLOOD UREA NITROGEN 13 mg/dL 7-21 (BEAKER) (test xgkx=572) CREATININE (BEAKER) (test 0.79 mg/dL 0.57-1.25 ucbb=895) GLUCOSE RANDOM (BEAKER) 103 mg/dL 70-105 (test uwds=946) CALCIUM (BEAKER) (test 9.6 mg/dL 8.4-10.2 abin=022) EGFR (BEAKER) (test 96 mL/min/1.73 sq m ESTIMATED GFR IS NOT dzwb=6308) ACCURATE CREATININE CLEARANCE IN PREDICTING GLOMERULAR FILTRATION RATE. ESTIMATED GFR IS NOT APPLICABLE FOR DIALYSIS PATIENTS. B-TYPE NATRIURETIC FACTOR (BNP)2018-10-31 05:39:00 Test Item Value Reference Range Comments B-TYPE NATRIURETIC PEPTIDE (BEAKER) (test 365 pg/mL 0-100 ivqj=887) PROTHROMBIN [id number] 05:38:00 Test Item Value Reference Range Comments PROTIME (BEAKER) (test uuzc=007) 14.4 seconds 11.9-14.2 INR (BEAKER) (test vblx=349) 1.2 <=5.9 Effective 08/06/2018: PT Reference Range ChangeNew: 11.9-14.2 Previous: 11.7- 14.7RECOMMENDED COUMADIN/WARFARIN INR THERAPY RANGESSTANDARD DOSE: 2.0-3.0 Includes: PROPHYLAXIS for venous thrombosis, systemic embolization; TREATMENT for venous thrombosis and/or pulmonary embolus.HIGH RISK: Target INR is2.5-3.5 for patients wiht mechanical heart valves.CBC (HEMOGRAM ONLY)2018-10-31 05:30:00 Test Item Value Reference Range Comments WHITE BLOOD CELL COUNT (BEAKER) (test ompn=852) 12.0 K/ L 3.5-10.5 RED BLOOD CELL COUNT (BEAKER) (test qosl=863) 4.77 M/ L 4.63-6.08 HEMOGLOBIN (BEAKER) (test hwgt=624) 12.4 GM/DL 13.7-17.5 HEMATOCRIT (BEAKER) (test lesu=074) 40.5 % 40.1-51.0 MEAN CORPUSCULAR VOLUME (BEAKER) (test vktq=746) 84.9 fL 79.0-92.2 MEAN CORPUSCULAR HEMOGLOBIN (BEAKER) (test 26.0 pg 25.7-32.2 yugw=420) MEAN CORPUSCULAR HEMOGLOBIN CONC (BEAKER) (test 30.6 GM/DL 32.3-36.5 sgan=396) RED CELL DISTRIBUTION WIDTH (BEAKER) (test 15.8 % 11.6-14.4 ekgm=873) PLATELET COUNT (BEAKER) (test ossd=851) 240 K/CU MM 150-450 MEAN PLATELET VOLUME (BEAKER) (test kwza=561) 11.2 fL 9.4-12.4 NUCLEATED RED BLOOD CELLS (BEAKER) (test 0 /100 WBC 0-0 oxdu=513) RAD, CHEST, 1 VIEW, NON [id number] 01:04:00Reason for exam:->chest painShould this be performed at the bedside?->YesFINAL REPORT Chest, 1 view. History: Chest pain Comparison: Plain radiographthe chest dated 10/30/2012.. IMPRESSION: The cardiomediastinal silhouette is within normal limits for a portable exam. Prominent pulmonary vasculature may be related to low lung volumes however pulmonary vascular congestion can have this appearance. No overt pulmonary edema. No lobar consolidation. Atherosclerotic calcifications of the thoracic aorta. No pleural effusion or pneumothorax. Osseous structures are grossly unremarkable. Signed: Noemy De La Paz [facility] Verified Date/Time: 10/31/2018 01:04:37 TROPONIN [id number] 00:04:00 Test Item Value Reference Range Comments TROPONIN I (BEAKER) (test caef=714) 15.54 ng/mL 0.00-0.03 Troponin I (TnI) levels must be interpreted in the context of the presenting symptoms and the clinical findings. Elevated TnI levels indicate myocardial damage, but are not specific for ischemic heart disease. Elevated TnI levels are seen in patients with other cardiac conditions (including myocarditis and congestive heart failure), and slight TnI elevations occur in patients with other conditions, including sepsis, renal failure, acidosis, acute neurological disease, and persistent tachyarrhythmia.B-TYPE NATRIURETIC FACTOR (BNP) 23:46:00 Test Item Value Reference Range Comments B-TYPE NATRIURETIC PEPTIDE (BEAKER) (test 472 pg/mL 0-100 vbrt=199) [id number] 23:40:00 Test Item Value Reference Range Comments PROTIME (BEAKER) (test rqpy=069) 14.2 seconds 11.9-14.2 INR (BEAKER) (test uapw=775) 1.2 <=5.9 PARTIAL THROMBOPLASTIN TIME (BEAKER) (test 34.1 seconds 22.5-36.0 dpxw=086) Effective 08/06/2018: PT Reference Range ChangeNew: 11.9-14.2 Previous: 11.7- 14.7RECOMMENDED COUMADIN/WARFARIN INR THERAPY RANGESSTANDARD DOSE: 2.0-3.0 Includes: PROPHYLAXIS for venous thrombosis, systemic embolization; TREATMENT for venous thrombosis and/or pulmonary embolus.HIGH RISK: Target INR is2.5-3.5 for patients wiht mechanical heart valves.LIPID [id number] 23:38:00 Test Item Value Reference Range Comments TRIGLYCERIDES (BEAKER) (test duew=655) 168 mg/dL CHOLESTEROL (BEAKER) (test txne=142) 222 mg/dL HDL CHOLESTEROL (BEAKER) (test tczx=315) 41 mg/dL LDL CHOLESTEROL CALCULATED (BEAKER) (test 147 mg/dL leim=690) Triglyceride Reference Range: Low Risk <150 Borderline 150- 199 High Risk 200-499 Very High Risk >=500Cholesterol Reference Range: Low Risk <200 Borderline 200-239 High Risk > 240HDL Cholesterol Reference Range: Low Risk >=60 High Risk <40LDL Cholesterol Reference Range: Optimal <100 Near Optimal 100-129 Borderline 130-159 High 160-189 Very High >=190COMPREHENSIVE METABOLIC [id number] 23:38:00 Test Item Value Reference Range Comments TOTAL PROTEIN (BEAKER) 6.9 gm/dL 6.0-8.3 (test jlcj=671) ALBUMIN (BEAKER) (test 3.8 g/dL 3.5-5.0 sqxw=2234) ALKALINE PHOSPHATASE 76 U/L 40-150 (BEAKER) (test mizj=887) BILIRUBIN TOTAL (BEAKER) 0.4 mg/dL 0.2-1.2 (test thug=138) SODIUM (BEAKER) (test 137 meq/L 136-145 nmmj=165) POTASSIUM (BEAKER) (test 3.9 meq/L 3.5-5.1 uyup=901) CHLORIDE (BEAKER) (test 102 meq/L 98-107 pltx=909) CO2 (BEAKER) (test 27 meq/L 22-29 vifw=917) BLOOD UREA NITROGEN 14 mg/dL 7-21 (BEAKER) (test fzqk=726) CREATININE (BEAKER) (test 0.81 mg/dL 0.57-1.25 pddc=803) GLUCOSE RANDOM (BEAKER) 99 mg/dL 70-105 (test kmuz=708) CALCIUM (BEAKER) (test 9.6 mg/dL 8.4-10.2 gnvj=704) AST (SGOT) (BEAKER) (test 41 U/L 5-34 wtlu=859) ALT (SGPT) (BEAKER) (test 14 U/L 6-55 cbhl=894) EGFR (BEAKER) (test 93 mL/min/1.73 sq m ESTIMATED GFR IS NOT tfzm=8703) ACCURATE CREATININE CLEARANCE IN PREDICTING GLOMERULAR FILTRATION RATE. ESTIMATED GFR IS NOT APPLICABLE FOR DIALYSIS PATIENTS. CBC W/PLT COUNT & AUTO [id number] 23:24:00 Test Item Value Reference Range Comments WHITE BLOOD CELL COUNT (BEAKER) (test hxjy=472) 11.5 K/ L 3.5-10.5 RED BLOOD CELL COUNT (BEAKER) (test vpsn=770) 4.65 M/ L 4.63-6.08 HEMOGLOBIN (BEAKER) (test mtnw=589) 12.1 GM/DL 13.7-17.5 HEMATOCRIT (BEAKER) (test spgh=231) 39.7 % 40.1-51.0 MEAN CORPUSCULAR VOLUME (BEAKER) (test oxug=528) 85.4 fL 79.0-92.2 MEAN CORPUSCULAR HEMOGLOBIN (BEAKER) (test 26.0 pg 25.7-32.2 ljxd=513) MEAN CORPUSCULAR HEMOGLOBIN CONC (BEAKER) (test 30.5 GM/DL 32.3-36.5 skkm=655) RED CELL DISTRIBUTION WIDTH (BEAKER) (test 15.7 % 11.6-14.4 cjra=995) PLATELET COUNT (BEAKER) (test rpwk=894) 247 K/CU MM 150-450 MEAN PLATELET VOLUME (BEAKER) (test hsdu=913) 10.6 fL 9.4-12.4 NUCLEATED RED BLOOD CELLS (BEAKER) (test 0 /100 WBC 0-0 vkfb=854) NEUTROPHILS RELATIVE PERCENT (BEAKER) (test 73 % jcth=719) LYMPHOCYTES RELATIVE PERCENT (BEAKER) (test 15 % dsua=704) MONOCYTES RELATIVE PERCENT (BEAKER) (test 9 % njxg=477) EOSINOPHILS RELATIVE PERCENT (BEAKER) (test 1 % qnok=900) BASOPHILS RELATIVE PERCENT (BEAKER) (test 1 % wciy=349) NEUTROPHILS ABSOLUTE COUNT (BEAKER) (test 8.40 K/ L 1.78-5.38 nbky=290) LYMPHOCYTES ABSOLUTE COUNT (BEAKER) (test 1.73 K/ L 1.32-3.57 bcad=233) MONOCYTES ABSOLUTE COUNT (BEAKER) (test 1.05 K/ L 0.30-0.82 lqcx=124) EOSINOPHILS ABSOLUTE COUNT (BEAKER) (test 0.14 K/ L 0.04-0.54 xehf=925) BASOPHILS ABSOLUTE COUNT (BEAKER) (test 0.09 K/ L 0.01-0.08 oddx=533) IMMATURE GRANULOCYTES-RELATIVE PERCENT (BEAKER) 0 % 0-1 (test gsta=8354)
[2019-03-25] MEDS ORDERED: ENOXAPARIN 100 MG/ML SYR SQ ONE (21:15)
[2019-03-25 21:47] LABS: Absolute Lymphocytes (CBC) 1.6 K/uL (0.7-4.9); Basophils % 0.8 % (0-1.3); Hematocrit 45.9 % (39.6-49.0); MPV 9.9 fL (7.6-11.3); RBC Red Blood Cell Count 5.83 M/uL (4.33-5.43)
[2019-03-25 21:52] LABS: Albumin 3.9 g/dL (3.4-5.0); Bilirubin Direct 0.1 mg/dL (0-0.2); Bilirubin Total 0.4 mg/dL (0.2-1.0); Magnesium 2.4 mg/dL (1.8-2.4); Potassium 4.1 mmol/L (3.5-5.1); Protein, Total 7.5 g/dL (6.4-8.2)
[2019-03-25 21:56] LABS: Troponin (Emerg Dept Use Only) 22.1 ng/mL (0.0-0.045)
[2019-03-25 22:07] LABS: Protime INR 1.11
--- NOTE | 2019-03-25 22:10 | EDPHYS ---
Physician Documentation [facility] Name: Aniceto Feldman Age: 74 yrs Sex: Male : 1945 Arrival Date: 03/25/2019 Time: 20:50 Bed 27 Private MD: ED Physician Gregg Nathan HPI: 03/25 23:06 This 74 yrs old Male presents to ER via Ambulatory with complaints of tw4 Abnormal Labs-Possible TIA sent by Josette. 23:06 The patient or guardian reports chest pain that is located primarily in the anterior tw4 chest wall. Onset: yesterday. The pain does not radiate. Associated signs and symptoms: The patient has no apparent associated signs or symptoms. The chest pain is described as dull. Duration: The patient or guardian reports a single episode. Modifying factors: The symptoms are alleviated by nothing. the symptoms are aggravated by nothing. Severity of pain: At its worst the pain was moderate in the emergency department the pain is unchanged. The patient has not experienced similar symptoms in the past. 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 - Social history:: Smoking status: Patient/guardian denies using tobacco. - Ebola Screening: : No symptoms or risks identified at this time. ROS: 23:06 Constitutional: Negative for fever, chills, and weight loss, Eyes: Negative for injury, tw4 pain, redness, and discharge. 23:06 Respiratory: Negative for shortness of breath, cough, wheezing, and pleuritic chest pain, Abdomen/GI: Negative for abdominal pain, nausea, vomiting, diarrhea, and constipation, Back: Negative for injury and pain, MS/Extremity: Negative for injury and deformity, Skin: Negative for injury, rash, and discoloration, Neuro: Negative for headache, weakness, numbness, tingling, and seizure. 23:06 Cardiovascular: Positive for chest pain, Negative for edema, orthopnea, palpitations, paroxysmal nocturnal dyspnea. Exam: 23:06 Constitutional: This is a well developed, well nourished patient who is awake, alert, tw4 and in no acute distress. Head/Face: Normocephalic, atraumatic. Chest/axilla: Normal chest wall appearance and motion. Nontender with no deformity. No lesions are appreciated. Cardiovascular: Regular rate and rhythm with a normal S1 and S2. No gallops, murmurs, or rubs. Normal PMI, no JVD. No pulse deficits. Respiratory: Lungs have equal breath sounds bilaterally, clear to auscultation and percussion. No rales, rhonchi or wheezes noted. No increased work of breathing, no retractions or nasal flaring. Abdomen/GI: Soft, non-tender, with normal bowel sounds. No distension or tympany. No guarding or rebound. No evidence of tenderness throughout. Back: No spinal tenderness. No costovertebral tenderness. Full range of motion. MS/ Extremity: Pulses equal, no cyanosis. Neurovascular intact. Full, normal range of motion. Neuro: Awake and alert, GCS 15, oriented to person, place, time, and situation. Cranial nerves II-XII grossly intact. Motor strength 5/5 in all extremities. Sensory grossly intact. Cerebellar exam normal. Normal gait. Psych: Awake, alert, with orientation to person, place and time. Behavior, mood, and affect are within normal limits. Vital Signs: 21:05 BP 197 / 100; Pulse 82; Resp 16; Temp 98.4; Pulse Ox 97% on R/A; Weight 96.16 kg; rv Height 5 ft. 10 in. (177.80 cm); Pain 0/10; 21:50 BP 166 / 74; Pulse 63; Resp 16; Pulse Ox 98% on R/A; Pain 0/10; rv 22:30 BP 160 / 78; Pulse 63; Resp 16; Pulse Ox 96% on R/A; rv 21:05 Body Mass Index 30.42 (96.16 kg, 177.80 cm) rv MDM: 20:54 Patient medically screened. tw4 23:14 Differential diagnosis: abnormal EKG, acute pericarditis. HEART Score: History: Highly tw4 Suspicious (2), ECG: Significant ST-deviation (2), Age: > or = 65 years (2), Risk Factors: > or = 3 Risk factors for atherosclerotic disease (2), Troponin: > or = 3 x Normal Limit (2). The patient was given aspirin in the Emergency Department. Data reviewed: vital signs, nurses notes. Data reviewed: lab test result(s), cardiac enzymes, troponin i, CBC, electrolytes, radiologic studies, plain films. Data interpreted: biomedical analytical scientist: rhythm is normal sinus rhythm, Pulse oximetry: Interpretation: normal. Counseling: I had a detailed discussion with the patient and/or guardian regarding: the historical points, exam findings, and any diagnostic results supporting the discharge/admit diagnosis, lab results, radiology results. Physician consultation: Sukhdev Finch MD was contacted at 20:30, regarding admission, to the telemetry unit. patient's condition, and will see patient in inpatient room. 03/25 20:55 Order name: Basic Metabolic Panel [facility] 03/25 20:55 Order name: CBC with Diff [facility] 03/25 20:55 Order name: LFT's [facility] 03/25 20:55 Order name: Magnesium [facility] 03/25 20:55 Order name: NT PRO-BNP [facility] 03/25 20:55 Order name: PT-INR [facility] 03/25 20:55 Order name: Troponin (emerg Dept Use Only) [facility] 03/25 22:38 Order name: Basic Metabolic Panel [facility] 03/25 22:38 Order name: Basic Metabolic Panel [facility] 03/25 22:38 Order name: CBC with Automated Diff [facility] 03/25 22:38 Order name: CBC with Automated Diff [facility] 03/25 22:38 Order name: Troponin I [facility] 03/25 22:38 Order name: Troponin I [facility] 03/25 22:38 Order name: Troponin I [facility] 03/25 20:55 Order name: XRAY Chest (1 view) [facility] 03/25 20:55 Order name: EKG; Complete Time: 20:55 [facility] 03/25 20:55 Order name: Cardiac monitoring; Complete Time: 21:23 [facility] 03/25 20:55 Order name: EKG - Nurse/Tech; Complete Time: 21:23 [facility] 03/25 20:55 Order name: IV Saline Lock; Complete Time: 21:23 tw4 03/25 20:55 Order name: Labs collected and sent; Complete Time: :4 03/25 20:55 Order name: O2 Per Protocol; Complete Time: :4 03/25 20:55 Order name: O2 Sat Monitoring; Complete Time: 21:24 4 03/25 22:38 Order name: EKG Electrocardiogram EDMS 03/25 22:38 Order name: EKG Electrocardiogram EDMS 03/25 22:38 Order name: EKG Electrocardiogram EDMS 03/25 22:38 Order name: EKG Electrocardiogram EDMS EC:13 Rate is 75 beats/min. Rhythm is regular with Left bundle branch block. QRS [place] is tw4 Normal. [place] interval is normal. QRS interval is normal. QT interval is normal. No Q waves. T waves are Normal. ST Segment is depressed in leads II, III, aVF, V5, 1-2mm. Clinical impression: 1st degree heart block. Interpreted by me. Reviewed by me. Administered Medications: 21:20 Drug: Lovenox 1 mg/kg Route: Sub-Q; Site: abdomen; rv 23:20 Follow up: Response: No adverse reaction rv 23:15 Drug: Nitro-Bid Ointment 2 % 0.5 inches Route: Transdermal; Site: anterior chest wall; rv Disposition: 03/25/19 22:09 Hospitalization ordered by Sukhdev Finch for Inpatient Admission. Preliminary diagnosis is Non-ST elevation (NSTEMI) myocardial infarction. - Bed requested for Telemetry/MedSurg (Inpatient). - Status is Inpatient Admission. lp1 - Condition is Stable. - Problem is new. - Symptoms have improved. UTI on Admission? No Signatures: Dispatcher [employer] EDNH Hannah Lerner RN RN lp1 Lucie Sumner RN RN tl1 Gregg Nathan MD MD tw4 Derek Pugh RN RN rv Corrections: (The following items were deleted from the chart) 22:53 22:09 Hospitalization Ordered by Sukhdev Finch MD for Inpatient Admission. Preliminary tl1 diagnosis is Non-ST elevation (NSTEMI) myocardial infarction. Bed requested for Telemetry/MedSurg (Inpatient). Status is Inpatient Admission. Condition is Stable. Problem is new. Symptoms have improved. UTI on Admission? No. tw4 03/26 05:03 01/15 22:53 03/25/2019 22:09 Hospitalization Ordered by Sukhdev Finch MD for Inpatient tl1 Admission. Preliminary diagnosis is Non-ST elevation (NSTEMI) myocardial infarction. Bed requested for [facility] ER HOLD. Status is Inpatient Admission. Condition is Stable. Problem is new. Symptoms have improved. UTI on Admission? No. tl1 03/26 06:16 05:03 03/25/2019 22:09 Hospitalization Ordered by Sukhdev Finch MD for Inpatient lp1 Admission. Preliminary diagnosis is Non-ST elevation (NSTEMI) myocardial infarction. Bed requested for Telemetry/MedSurg (Inpatient). Status is Inpatient Admission. Condition is Stable. Problem is new. Symptoms have improved. UTI on Admission? No. tl1
--- NOTE | 2019-03-25 22:10 | ER ---
Nurse's Notes [facility] Name: Aniceto Feldman Age: 74 yrs Sex: Male : 1945 Arrival Date: 03/25/2019 Time: 20:50 Bed 27 Private MD: Diagnosis: Non-ST elevation (NSTEMI) myocardial infarction Presentation: 03/25 21:03 Presenting complaint: Patient states: PATIENT IS COMPLAINING OF CHEST PAIN YESTERDAY. rv TOOK 325 ASA X 2 AND ANOTHER BLOOD THINNER. SYMPTOMS GOT BETTER. TODAY HE WENT TO HIS PCP, DONE SOME BLOOD WORKS. LATER TONIGHT, DOCTOR CALLED HIM AND WAS ADVISED TO COME IN THE ER BECAUSE HE IS HAVING A HEART ATTCK. Transition of care: patient was not received from another setting of care. Onset of symptoms was March 24, 2019 at 08:00. 21:03 Method Of Arrival: Ambulatory rv 21:03 Acuity: KRISTIE 3 rv 21:25 Risk Assessment: Do you want to hurt yourself or someone else? Patient reports no rv desire to harm self or others. Initial Sepsis Screen: Does the patient meet any 2 criteria? No. Patient's initial sepsis screen is negative. Does the patient have a suspected source of infection? No. Patient's initial sepsis screen is negative. Care prior to arrival: None. 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 - Social history:: Smoking status: Patient/guardian denies using tobacco. - Ebola Screening: : No symptoms or risks identified at this time. Screenin:24 Abuse screen: Denies threats or abuse. Denies injuries from another. Nutritional rv screening: No deficits noted. Tuberculosis screening: No symptoms or risk factors identified. Fall Risk None identified. Assessment: 21:24 General: Appears in no apparent distress. comfortable, Behavior is calm, cooperative. rv Pain: Denies pain. Neuro: Level of Consciousness is awake, alert, obeys commands, Oriented to person, place, time, situation. Cardiovascular: Patient's skin is warm and dry. Rhythm is regular. Respiratory: Airway is patent. Derm: Skin is intact. Vital Signs: 21:05 BP 197 / 100; Pulse 82; Resp 16; Temp 98.4; Pulse Ox 97% on R/A; Weight 96.16 kg; rv Height 5 ft. 10 in. (177.80 cm); Pain 0/10; 21:50 BP 166 / 74; Pulse 63; Resp 16; Pulse Ox 98% on R/A; Pain 0/10; rv 22:30 BP 160 / 78; Pulse 63; Resp 16; Pulse Ox 96% on R/A; rv 21:05 Body Mass Index 30.42 (96.16 kg, 177.80 cm) rv ED Course: 20:50 Patient arrived in ED. ds1 20:54 Gregg Nathan MD is Attending Physician. tw4 21:03 Derek Pugh RN is Primary Nurse. rv 21:05 Triage completed. rv 21:17 Inserted saline lock: 20 gauge in left antecubital area, using aseptic technique. Blood ar5 collected. 21:25 Arm band placed on right wrist. rv 21:25 Patient has correct armband on for positive identification. Pulse ox on. NIBP on. rv 21:26 XRAY Chest (1 view) In Process Unspecified. EDMS 21:26 library monitor on. rv 22:06 Sukhdev Finch MD is Hospitalizing Provider. tw4 23:20 No provider procedures requiring assistance completed. Patient admitted, IV remains in rv place. Administered Medications: 21:20 Drug: Lovenox 1 mg/kg Route: Sub-Q; Site: abdomen; rv 23:20 Follow up: Response: No adverse reaction rv 23:15 Drug: Nitro-Bid Ointment 2 % 0.5 inches Route: Transdermal; Site: anterior chest wall; rv Outcome: 22:09 Decision to Hospitalize by Provider. tw4 23:21 Admitted to ER Hold. Please see [facility] for further documentation. rv 23:21 Condition: good 23:21 Instructed on the need for admit. 03/26 06:16 Patient left the ED. lp1 Signatures: Dispatcher [employer] BREANNA MarksGaby cardoso ds1 Hannah Lerner RN RN lp1 Gregg Nathan MD MD tw4 Derek Pugh RN RN rv Jennie No ar5
[2019-03-25] MEDS ORDERED: NITROGLYCERIN 1 GM PKT TD ONE (23:12)
[2019-03-26 00:33] VITALS: BMI 30.4
[2019-03-26 04:59] LABS: Absolute Lymphocytes (CBC) 1.8 K/uL (0.7-4.9); Basophils % 1.1 % (0-1.3); Hematocrit 44.1 % (39.6-49.0); MPV 9.4 fL (7.6-11.3); RBC Red Blood Cell Count 5.59 M/uL (4.33-5.43)
--- NOTE | 2019-03-26 08:07 | RAD REPORT ---
EXAM DESCRIPTION: RAD - Chest Single View - 03/25/2019 9:30 pm CLINICAL HISTORY: CHEST PAIN Chest pain. COMPARISON: Chest Single View dated 10/29/2018; Chest Single View dated 09/27/2016; Chest Single View dated 07/07/2015; CHEST SINGLE VIEW dated 11/21/2012 FINDINGS: Portable technique limits examination quality. The lungs are mildly emphysematous but clear. The heart is mildly enlarged in size with sternotomy wi res present. No displaced fractures. IMPRESSION: Mild COPD.
[2019-03-26] MEDS ORDERED: ASPIRIN EC 81 MG TAB PO SCH (09:00)
[2019-03-26 09:54] VITALS: O2SAT 98
--- NOTE | 2019-03-26 10:59 | EKG ---
Test Date: 2019-03-26 Test Time: 09:01:20 Derrick Helper: CHRISTEL MEASUREMENT RESULTS: Intervals: Rate: 62 IN: 212 QRSD: 156 QT: 492 QTc: 499 [place]: P: 65 IN: 212 QRS: 13 T: 181 INTERPRETIVE STATEMENTS: Sinus rhythm with marked sinus arrhythmia with 1st degree AV block Left bundle branch block Abnormal ECG Compared to ECG 03/25/2019 21:02:41 No significant changes Electronically Signed On 03-26-19 10:58:06 CITY MAGISTRATE by Cedrick Cary
--- NOTE | 2019-03-26 10:59 | EKG ---
Test Date: 2019-03-25 Test Time: 21:02:41 Cut Out Worker: RADHA MEASUREMENT RESULTS: Intervals: Rate: 75 MD: 210 QRSD: 154 QT: 438 QTc: 489 [place]: P: 53 MD: 210 QRS: 52 T: 222 INTERPRETIVE STATEMENTS: Sinus rhythm with 1st degree AV block Left bundle branch block Abnormal ECG Compared to ECG 10/30/2018 08:01:18 Atrial premature complex(es) no longer present Electronically Signed On 03-26-19 10:58:17 RECYCLING MANAGER by Cedrick Cary
--- NOTE | 2019-03-26 13:30 | ECHO ---
HEIGHT: 5 ft 10 in WEIGHT: 212 lb 1.002 oz DATE OF STUDY: 03/16/[address]: Cedrick Cary MD 2-DIMENSIONAL: YES M.MODE: YES DOPPLER: YES COLOR FLOW: YES TDS: NO PORTABLE: NO DEFINITY: NO BUBBLE STUDY: NO DIAGNOSIS: TRANSIENT ISCHEMIC ATTACK/ AORTIC VALVE REPLACEMENT CARDIAC HISTORY: CATHERIZATION: YES SURGERY: YES PROSTHETIC VALVE: YES PACEMAKER: NO MEASUREMENTS (cm) DIASTOLIC (NORMALS) SYSTOLIC (NORMALS) IVSd 1.2 (0.6-1.2) LA Diam 4.2 (1.9-4.0) LVEF 51-55% LVIDd 4.8 (3.5-5.7) LVIDs 3.7 (2.0-3.5) %FS 23% LVPWd 1.4 (0.6-1.2) Ao Diam 3.0 (2.0-3.7) 2 DIMENSIONAL ASSESSMENT: RIGHT ATRIUM: NORMAL LEFT ATRIUM: DILATED RIGHT VENTRICLE: NORMAL LEFT VENTRICLE: LEFT VENTRICULAR HYPERTROPHY TRICUSPID VALVE: NORMAL MITRAL VALVE: NORMAL PULMONIC VALVE: NORMAL AORTIC VALVE: STATUS POST AORTIC VALVE AREA PERICARDIAL EFFUSION: NONE AORTIC ROOT: NORMAL LEFT VENTRICULAR WALL MOTION: NORMAL. DOPPLER/COLOR FLOW: MILD TRICUSPID REGURGITATION. COMMENTS: LEFT VENTRICULAR HYPERTROPHY. NORMAL EJECTION FRACTION. NO WALL MOTION ABNORAMLITY. NO EFFUSION. STATUS POST AORTIC VALVE REPLACEMENT BIOPRESTHETIC NORMAL. TECHNOLOGIST: LEWIS TSAI
[2019-03-26] MEDS ORDERED: METOPROLOL TAR 50 MG TAB PO ONE (16:48)
[2019-03-26 17:00] VITALS: BP 188/85
[2019-03-26 17:53] VITALS: TEMP 97.3
--- NOTE | 2019-03-26 18:17 | P.SSS ---
Patient History Date of Service: 03/26/19 Reason for admission: CHEST PAIN History of Present Illness: MR. NGUYỄN HAD EPISODE OF CHEST PAIN AND ARM PAIN AFTER EXERTION DAY BEFORE YESTERDAY, HE COMES TO OFFICE YESTERDAY. I ORDERED RTN LAB WITH TROPONIN AND IT CAME HIGH. I CALLED HIM LAST NIGHT AND ASKED HIM TO REPORT TO ER. DR. SINGH SUSPECTS THIS IS POST CABG PAIN AND TROOPNINS ARE NOT RELATED TO IN PER HIM. HE HAS ASKED HIM TO TAKE METOPROLOL AND NOT GET OFF. PATIENT UNDERSTOOD. DR. SINGH ASKED ME TO DISCHARGE HIM. Allergies amlodipine Allergy (Verified 10/30/18 01:06) Anaphylaxis fentanyl Allergy (Verified 10/30/18 01:06) Anaphylaxis nifedipine [From Procardia] Allergy (Verified 10/30/18 02:43) Anaphylaxis vecuronium Allergy (Verified 10/30/18 01:06) Anaphylaxis nostigmi Allergy (Uncoded 10/30/18 02:43) Anaphylaxis Home Medications: Clopidogrel Bisulfate [Plavix*] 75 mg PO DAILY 03/26/19 Metoprolol Tartrate [Lopressor*] 50 mg PO BID 30 Days #60 tab 03/26/19 Valsartan/Hydrochlorothiazide [Valsartan-Hctz 160-25 mg Tab] 160 mg PO DAILY carvediloL [Carvedilol] 6.25 mg PO DAILY 03/26/19 hydroCHLOROthiazide [Hydrochlorothiazide] 12.5 mg PO DAILY 03/26/19 - Past Medical/Surgical History Diabetic: No -: HTN -: IN X2 -: HYPERCHOLESTEREMIA -: DEGENERATIVE JOINT DIS -: COLON CA- 2014 -: CAD -: PILONIDAL CYST -: A.FIB -: MINI STROKES -: HAND SX -: CAROTID SX -: SHOULDER SX -: HEART CATH W/STENTS PLACED -: TONSILLECTOMY - Family History Father -: Other (see notes) Notes: Heart attack Brother -: Diabetes Sister Notes: Heart problems - Social History Smoking Status: Never smoker Alcohol use: Yes CD- Drugs: No Caffeine use: Yes Review of Systems is unable to be obtained Physical Examination - Vital Signs Temperature: 97.3 F Blood Pressure: 188/85 Pulse: 57 Respirations: 18 Pulse Ox (%): 98 - Physical Exam General: Alert, In no apparent distress HEENT: Atraumatic, PERRLA, Mucous membr. moist/pink, EOMI, Sclerae nonicteric Neck: Supple, 2+ carotid pulse no bruit, No LAD, Without JVD or thyroid abnormality Respiratory: Clear to auscultation bilaterally, Normal air movement Cardiovascular: Regular rate/rhythm, Normal S1 S2 Gastrointestinal: Normal bowel sounds, No tenderness Musculoskeletal: No tenderness Integumentary: No rashes Neurological: Normal gait, Normal speech, Normal strength at 5/5 x4 extr, Normal tone, Normal affect Lymphatics: No axilla or inguinal lymphadenopathy - Studies Laboratory Data (last 24 hrs) 03/25/19 21:12: PT 13.1 H, INR 1.11 03/25/19 21:12: WBC 10.0, Hgb 14.7, Hct 45.9, Plt Count 201 03/25/19 21:12: Sodium 139, Potassium 4.1, BUN 22 H, Creatinine 1.04, Glucose 100, Magnesium 2.4, Total Bilirubin 0.4, AST 44 H, ALT 21, Alkaline Phosphatase 90 - Diagnosis (Problem(s)) (1) CAD (coronary artery disease) Current Visit: Yes Status: Acute Plan: PER ABOVE. WILL FU ON MEDS. HE HAS MEDS AT HOME FOR BP METOPROLOL CLONIDINE HE COULD NOT TAKE AMLODIPINE. Qualifiers: Coronary Disease-Associated Artery/Lesion type: bypass graft (2) Chest pain Onset Date: 07/08/15 Current Visit: No Status: Acute Plan: PLAN PER DR. SINGH. - Disposition Disposition: ROUTINE DISCHARGE
--- NOTE | 2019-03-26 21:10 | CON ---
The patient admitted to Dr. Finch's service on 03/25/2019. Reason For Consultation: Chest pain and elevated troponin. History Of Present Illness: Mr. Feldman is a 74-year-old white male, known to me and Dr. Finch's from previous office visits and admissions. He has a history of hypertension, atrial fibrillation. He, in October 2018, underwent coronary artery bypass surgery and an aortic valve replacement. This is a bioprosthetic valve. He came in with hypertension, chest pain that is substernal with and without ex ertion. No nausea, vomiting, diaphoresis, PND, orthopnea, pedal edema, palpitations, or syncope. Mr Terri Feldman has been seen in my office not long ago. He is very hesitant to take his medications at [facility] and has basically told to be on Plavix, Synthroid. He takes clonidine as needed. He is supposed t o be taking losartan as well as Coreg and hydrochlorothiazide, but insisted on being off his beta-blo ckers because of fatigue. Obviously, came in with hypertensive crisis and chest pain in that regard. He did have a troponin of 22.1. His BNP was 2197. EKG showed no acute changes. He is pain-free r ight now and his blood pressure has improved. Allergies: HE IS ALLERGIC TO FENTANYL, NORVASC, AND PROCARDIA. Review of Systems: Negative. Social History: Negative. Family History: Negative. Physical Examination: General: When I saw him, his vital signs were stable. He was afebrile. HEENT: Negative. Neck: Supple, no bruit. Chest: Clear. Cardiac: Revealed a regular rhythm and rate. No murmurs, gallops, or rubs. Abdomen: Benign. Extremities: Revealed no clubbing, cyanosis, or edema. Diagnostic Data: As stated earlier. Impression And Plan: Coronary artery disease with stable angina, noncompliance issues. I think this troponin elevation is still a remnant from his recent bypass surgery and possibly related to severe hypertension. I do not see any major EKG changes. It would be very unlikely for him to have to clos e any graft that soon without any EKG changes. We will prefer to treat him medically. I urged him u nder any circumstances to be at least on aspirin, Plavix, and a beta kenneth, preferably a statin. I discussed the case with Dr. Finch and the patient and hopefully he will agree to that. Echocardiogr am that was done today was normal. No wall motion abnormalities. No effusion. A bioprosthetic aort ic valve appears to be functioning normally. Has had a history of atrial fibrillation before, but th is has resolved. Hopefully, Mr. Feldman will be compliant and I will see him in the office in about a week or 2, but he can go home otherwise. DUDLEY/THONY Voice ID: [id number] Report ID: [id number]
== END 2019-03-26 18:19 | disposition home or self-care (01) | DRG 303 ==
LOC: ER 20:49 → ERHOLD 23:09 → 2ND 03-26 06:06
PROVIDERS: ADMIT Internal Medicine; ATTEND Internal Medicine
DX: I25.10 Atherosclerotic heart disease of native coronary artery without angina pectoris (principal); I48.20 Chronic atrial fibrillation, unspecified; I10 Essential (primary) hypertension; E78.00 Pure hypercholesterolemia, unspecified; R07.9 Chest pain, unspecified; Z95.5 Presence of coronary angioplasty implant and graft; I25.2 Old myocardial infarction
CPT/HCPCS: 36415; 71045; 80048; 80076; 82947; 83735; 83880; 84484; 85025; 85610; 93005; 93306; 96372; 99285; J1650

== ENCOUNTER 2020-03-27 10:19 | Emergency (ER) | payer OTHER ==
--- OUTSIDE RECORDS SUMMARY | 2020-03-27 10:21 | XMS REPORT | Clinical Summary ---
:1945 Author Organization [facility] Address [address] [place] [address] Care Team Providers Name Role Phone Keira Finch Primary Care Provider [facility] Unavailable Allergies Active Allergy Reactions Severity Noted Date Comments Amlodipine 10/30/2018 Fentanyl 10/30/2018 Neostigmine 10/30/2018 Nifedipine 10/30/2018 Vecuronium 10/30/2018 Medications Medication Sig Dispensed Refills Start Date End Date Status thyroid, pork, (ROAD CLEANER Take 60 mg by 0 Active THYROID) 60 mg Tab mouth daily. furosemide (LASIX) 20 Take 40 mg by 0 Active MG tablet mouth 2 (two) times daily . aspirin 81 MG EC Take 1 tablet 30 tablet 1 11/07/2018 11/07/19 20 tablet (81 mg total) by mouth daily. amiodarone (PACERONE) Take 1 tablet 60 tablet 1 11/07/2018 200 MG tablet (200 mg total) by mouth 2 (two) times daily. atorvastatin (LIPITOR) Take 1 tablet 30 tablet 1 11/07/2018 80 MG tablet (80 mg total) by mouth nightly. carvedilol (COREG) Take 1 tablet 60 tablet 1 11/07/20182019 6.25 MG tablet (6.25 mg total) by mouth 2 (two) times daily. clopidogrel (PLAVIX) Take 1 tablet 30 tablet 1 11/07/201810/10 75 mg tablet (75 mg total) by mouth daily. Active Problems Problem Noted Date Aortic stenosis 10/31/2018 Atrial fibrillation 10/31/2018 Overview: Not on anticoagulation Transient ischemic attack 10/31/2018 History of anesthesia reaction 10/31/2018 Overview: Caused Autoimmune Arthritis Hyperlipidemia 10/31/2018 Hypertension 10/31/2018 Respiratory insufficiency 10/31/2018 Vasogenic shock 10/31/2018 Acute on chronic diastolic congestive heart failure Acute blood loss anemia 10/31/2018 Encounter for management of intra-aortic balloon pump 10/31/2018 S/P CABG x 3 and AVR 10/[address] Whittaker 10/31/2018 CAD (coronary artery disease) 10/30/2018 Immunizations Name Administration Dates Next Due Pneumococcal Conjugate (Prevnar) 13-Valent 11/04/2018 Family History Medical History Relation Name Comments Heart attack Father Coronary artery disease Sister Relation Name Status Comments Father Sister Social History Tobacco Use Types Packs/Day Years Used Date Never Smoker Smokeless Tobacco: Never Used Alcohol Use Drinks/Week oz/Week Comments Yes Alcohol Habits Answer Date Recorded How often do you have a drink containing 4 or more times a w [place] 10/30/2018 alcohol? How many drinks containing alcohol do you have 1 or 2 10/30/2018 on a typical day when you are drinking? How often do you have six or more drinks on one Not asked occasion? 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 No rinse per gold miner's recommendations. Results Not on fileafter 03/27/2019 Insurance Payer Benefit Plan / Subscriber ID Effective Dates Phone Addre ss Type Group MEDICARE MEDICARE A B [id number] 2010-Presen Medicare t AETNA - MGD CARE AET[employer] INDEMNITY [id number] 2013-Present Comm NON CONTR Advance Directives For more information, please contact: [phone] Code Status Date Activated Date Inactivated Comments Full Code 10/30/2018 9:59 PM 11/07/2018 3:47 PM This code status was determined by: Patient Full Code 10/30/2018 8:50 PM 10/30/2018 9:59 PM This code status was determined by: Patient
--- OUTSIDE RECORDS SUMMARY | 2020-03-27 10:23 | XMS REPORT | Continuity of Care Document ---
:1945 Author Organization [facility] t Address [address] [place] [address] Care Team Providers Name Role Phone Keira Finch Primary Care Physician LISA OWENS Attending Clinician Unavailable LISA OWENS Admitting Clinician Unavailable Problems Condition Condition Condition Status Onset Resolution Last Treating Co mments Source Name Details Category Date Date Treatment Clinician Date Aortic Aortic Disease Active [facility] stenosis stenosis 10-31 [facility] - 00:[facility]: Medical 00 [place] Atrial Atrial Disease Active Overview: [facility] fibrillati fibrillati 10-31 Not on Ananya kes - on on 00:00: anticoagu Medical 00 lation [place] Transient Transient Disease Active [facility] ischemic ischemic 10-31 [facility] - attack attack 00:00: Medical 00 Center History of History of Disease Active Overview : [facility] anesthesia anesthesia 10-31 Caused Ananya kes - 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 Med ical 00 e Center Arthritis Hyperlipid Hyperlipid Disease Active [facility] emia emia 10-31 [facility] 00 Center Hypertensi Hypertensi Disease Active [facility] on on 10-31 [facility] 00:[facility] Medical 00 Center Respirator Respirator Disease Active [facility] y y 10-31 [facility] - insufficie insufficie 00:00: Me dical ncy ncy 00 Center 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 10-31 [facility] - 00:[facility]: [facility] 00 Center Acute on Acute on Disease Active [facility] chronic chronic 10[facility] - diastolic diastolic 00:00: Medi mary congestive congestive 00 Ce nter heart heart failure failure Acute Acute Disease Active [facility] blood loss blood loss 10-31 Ananya kes - anemia anemia 00:00: Medical 00 Center Encounter Encounter Disease Active [facility] for for 10-31 [facility] - management management 00:00: Me dical of of 00 Center intra-aort intra-aort ic balloon ic balloon pump pump S/P CABG x S/P CABG x Disease Active [facility] 3 and AVR 3 and AVR 10-31 [facility] - 10/31 by 10/31 by 00:00: Medical Dr. Brooks 00 Center [facility] CAD CAD Disease Active [facility] (coronary (coronary 10-30 [facility] - artery artery 00:00: Medical disease) disease) 00 Center Allergies, Adverse Reactions, Alerts Allergy Allergy Status Severity Reaction(s) Onset Inactive Treating Comm ents Source Name Type Date Date Clinician Amlodipi Propensi Active [facility] ne ty to 10-30 [facility] - adverse 00:00: Medical reaction 00 [place] Fentanyl Propensi Active [facility] ty to 10-30 [facility] - adverse 00:00: Medical reaction 00 [place] Neostigm Propensi Active [facility] ine ty to 10-30 [facility] - adverse 00:00: Medical reaction 00 [place] Nifedipi Propensi Active [facility] ne ty to 10-30 [facility] - adverse 00:00: Medical reaction 00 [place] Vecuroni Propensi Active [facility] um ty to 10-30 [facility] - adverse 00:00: Medical reaction 00 Center s Family History Family Member Diagnosis Comments Start Date Stop Date Source Natural father Heart attack [facility] Natural sister Coronary artery [facility] Social History Social Habit Start Date Stop Date Quantity Comments Source History SDOH [facility] - Alcohol Binge Medical [facility] Sex Assigned At [facility] Ananya kes - [facility] Center Tobacco use and 2018-11-22 2018-11-22 Never used [facility] St Ananya kes - exposure 00:00:00 00:00:00 Medical Center Alcohol intake 2018-11-22 2018-11-22 [facility]00 [facility] alcohol Medical Center (finding) History SDOH 2018-10-30 2018-10-[address] [facility] - Alcohol Frequency 00:00:00 00:00:00 Medical Center History SDOH 2018-10-30 2018-10-[address] [facility] - Alcohol Std Drinks 00:00:00 00:00:00 Medica l Center Smoking Status Start Date Stop Date Source Never sm[facility] Medications Ordered Filled Start Stop Current Ordering Indication Dosage Frequency Signature Comments Components Source Medication Medication Date Date Medication? Clinician (SIG) Name Name furosemide Yes 40mg Q.5D Take [address] (LASIX) 20 11-17 by mouth 2 [facility] - MG tablet 11:06: (two) Medical 04 times Center daily . thyroid, Yes 60mg QD Take [address] [address] pork, (CLOD PULLER 11-17 by mouth [facility] - THYROID) 60 10:52: daily. Medi mary mg Tab 23 Center aspirin 81 2020- No 81mg QD Take [address] [address] MG EC 11-07 tablet (81 [facility] - tablet 00:00: 23:59 mg total) Medic al 00 :00 by mouth Center daily. amiodarone 2019- No 200mg Q.5D Take [address] (PACERONE) 11-07 tablet [facility] - 200 MG 00:00: 23:59 (200 mg Medical tablet 00 :00 total) by Center mouth 2 (two) times daily. atorvastati 2020- No 80mg QD Take [address] [facility] [address] n (LIPITOR) 11-07 tablet (80 [facility] - 80 MG 00:00: 23:59 mg total) Medica l tablet 00 :00 by mouth Center nightly. carvedilol 2020- No 6.25mg Q.5D Take [address] (COREG) 11-07 tablet [facility] - 6.25 MG 00:00: 23:59 (6.25 mg Medic al tablet 00 :00 total) by Center mouth 2 (two) times daily. clopidogrel 2020- No 75mg QD Take [address] (PLAVIX) 75 11-07 tablet (75 [facility] - mg tablet 00:00: 23:59 mg total) Me dical 00 :00 by mouth Center daily. Immunizations Ordered Immunization Filled Immunization Date Status Commen ts Source Name Name Pneumococcal 2018-11-[address] [facility] - Conjugate (Prevnar) 00:00:00 [facility] 13-Valent Procedures This patient has no known procedures. Plan of Care Planned Activity Planned Date Details Comments Source Future Scheduled 2019-11-10 INFLUENZA VACCINE (#1) [facility] - Test 00:00:00 [code = INFLUENZA Medical Ce nter VACCINE (#1)] Future Scheduled 2019-11-05 PNEUMOCOCCAL 65+ YRS [facility] - Test 00:00:00 (2 of 2 - PPSV23) Medical Ce nter [code = PNEUMOCOCCAL 65+ YRS (2 of 2 - PPSV23)] Future Scheduled 2011-01-[address] [facility] [address] [facility] - Test 00:00:00 WELLNESS (YEAR 2 or Medical Center FIRST YEAR if no IPPE) [code = MEDICARE ANNUAL WELLNESS (YEAR 2 or FIRST YEAR if no IPPE)] Future Scheduled [address] [facility] - Test 00:00:00 malignant neoplasm of [facility] colon (procedure) [code = 992550555] Results Test Description Test Time Test Comments Results Result [facility] e Comments TISSUE EXAM 2018-11-07 Surgical Pathology 12:04:00 Report Case: [id number] Authorizing Provider: Yuan Whittaker, Collected: 10/31/2018 1039 Ordering Location: [facility] Received: 10/31/2018 1430 PERIOPERATIVE SERVICES Pathologist: Chadwick Avery MD Specimen: Aortic Valve, Aortic valve HEART, AORTIC VALVE, VALVULECTOMY:THREE LEAFLETS WITH NODULAR CALCIFIC ATHEROSCLEROTIC THICKENING Signing Pathologist Direct Phone Line: [phone] franck signed by Chadwick Avery MD on 11/07/2018 at 12:04 [id number]; [id number] artery disease with angina pectoris A. Aortic valve Part A. Received in formalin labeled with the patient's name, medical record number and "aortic valve" are three buckley-white soft tissue fragments consistent with aortic leaflets that measure 2.5 x 2.2 x 0.4 cm in aggregate. The leaflets display calcifications. No vegetations are identified. The specimen is serially sectioned, and product representative sections are submitted in cassette A1 following light decalcification. /isaac PERFORMED RAD, CHEST, 1 2018-11-06 Reason for FINAL REPORT PATIENT VIEW, NON DEPT 07:58:00 exam:->Maria G ID: [id number] RAD, d this be CHEST, 1 VIEW, NON performed at DEPT INDICATION: SOB the COMPARISON: October bedside?->Yes 2018 FINDINGS: Portable frontal view of the chest. IMPRESSION: Limited by underpenetration.Supp ort Lines: None. Lungs and pleura: Basilar subsegmental atelectasis. Small left effusion. No pneumothorax.Heart and mediastinum: Stable contours. Stable surgical changes.Additional findings: None. Signed: JR Sathya, Rafia STREETeport Verified Date/Time: 11/06/2018 07:58:38 Reading Location: [facility] Radiology Reading Room ESIUM 2018-11-06 07:12:00 Test Item Value Reference Range Interpretation Comme nts MAGNESIUM (BEAKER) (test code = 627) 2.3 mg/dL 1.6-2.6 BASIC METABOLIC [id number] 07:12:00 Test Item Value Reference Range Interpretation Comments SODIUM (BEAKER) 139 meq/L 136-145 (test code = 381) POTASSIUM (BEAKER) 4.3 meq/L 3.5-5.1 (test code = 379) CHLORIDE (BEAKER) 104 meq/L 98-107 (test code = 382) CO2 (BEAKER) (test 30 meq/L 22-29 H code = 355) BLOOD UREA NITROGEN 25 mg/dL 7-21 H (BEAKER) (test code = 354) CREATININE (BEAKER) 0.79 mg/dL 0.57-1.25 (test code = 358) GLUCOSE RANDOM 96 mg/dL 70-105 (BEAKER) (test code = 652) CALCIUM (BEAKER) 9.1 mg/dL 8.4-10.2 (test code = 697) EGFR (BEAKER) (test 96 mL/min/1.73 ESTIMA AIMEE GFR IS code = 1092) sq m NOT ACCURATE CREATININE CLEARANCE IN PREDICTING GLOMERULAR FILTRATION RATE . ESTIMATED GFR I S NOT APPLICABLE FOR DIALYSIS PATIEN TS. CBC W/PLT COUNT & AUTO [id number] 06:22:00 Test Item Value Reference Range Interpretation Comments WHITE BLOOD CELL COUNT (BEAKER) 12.8 K/ L 3.5-10.5 H (test code = 775) RED BLOOD CELL COUNT (BEAKER) 3.15 M/ L 4.63-6.08 L (test code = 761) HEMOGLOBIN (BEAKER) (test code = 8.5 GM/DL 13.7-17.5 L 410) HEMATOCRIT (BEAKER) (test code = 28.0 % 40.1-51.0 L 411) MEAN CORPUSCULAR VOLUME (BEAKER) 88.9 fL 79.0-92.2 (test code = 753) MEAN CORPUSCULAR HEMOGLOBIN 27.0 pg 25.7-32.2 (BEAKER) (test code = 751) MEAN CORPUSCULAR HEMOGLOBIN CONC 30.4 GM/DL 32.3-36.5 L (BEAKER) (test code = 752) RED CELL DISTRIBUTION WIDTH 16.2 % 11.6-14.4 H (BEAKER) (test code = 412) PLATELET COUNT (BEAKER) (test 278 K/CU MM 150-450 code = 756) MEAN PLATELET VOLUME (BEAKER) 10.8 fL 9.4-12.4 (test code = 754) NUCLEATED RED BLOOD CELLS 0 /100 WBC 0-0 (BEAKER) (test code = 413) NEUTROPHILS RELATIVE PERCENT 69 % (BEAKER) (test code = 429) LYMPHOCYTES RELATIVE PERCENT 15 % (BEAKER) (test code = 430) MONOCYTES RELATIVE PERCENT 12 % (BEAKER) (test code = 431) EOSINOPHILS RELATIVE PERCENT 3 % (BEAKER) (test code = 432) BASOPHILS RELATIVE PERCENT 1 % (BEAKER) (test code = 437) NEUTROPHILS ABSOLUTE COUNT 8.78 K/ L 1.78-5.38 H (BEAKER) (test code = 670) LYMPHOCYTES ABSOLUTE COUNT 1.91 K/ L 1.32-3.57 (BEAKER) (test code = 414) MONOCYTES ABSOLUTE COUNT (BEAKER) 1.50 K/ L 0.30-0.82 H (test code = 415) EOSINOPHILS ABSOLUTE COUNT 0.38 K/ L 0.04-0.54 (BEAKER) (test code = 416) BASOPHILS ABSOLUTE COUNT (BEAKER) 0.06 K/ L 0.01-0.08 (test code = 417) IMMATURE GRANULOCYTES-RELATIVE 1 % 0-1 PERCENT (BEAKER) (test code = 2801) CBC W/PLT COUNT & AUTO [id number] 10:40:00 Test Item Value Reference Range Interpretation Comments WHITE BLOOD CELL COUNT (BEAKER) 14.6 K/ L 3.5-10.5 H (test code = 775) RED BLOOD CELL COUNT (BEAKER) 3.10 M/ L 4.63-6.08 L (test code = 761) HEMOGLOBIN (BEAKER) (test code = 8.3 GM/DL 13.7-17.5 L 410) HEMATOCRIT (BEAKER) (test code = 26.7 % 40.1-51.0 L 411) MEAN CORPUSCULAR VOLUME (BEAKER) 86.1 fL 79.0-92.2 (test code = 753) MEAN CORPUSCULAR HEMOGLOBIN 26.8 pg 25.7-32.2 (BEAKER) (test code = 751) MEAN CORPUSCULAR HEMOGLOBIN CONC 31.1 GM/DL 32.3-36.5 L (BEAKER) (test code = 752) RED CELL DISTRIBUTION WIDTH 15.9 % 11.6-14.4 H (BEAKER) (test code = 412) PLATELET COUNT (BEAKER) (test 235 K/CU MM 150-450 code = 756) MEAN PLATELET VOLUME (BEAKER) 10.9 fL 9.4-12.4 (test code = 754) NUCLEATED RED BLOOD CELLS 0 /100 WBC 0-0 (BEAKER) (test code = 413) (CELLAVISION MANUAL DIFF)2018-11-05 10:40:00 Test Item Value Reference Range Interpretation Comments NEUTROPHILS - REL 75 % (CELLAVISION)(BEAKER) (test code = 2816) LYMPHOCYTES - REL 12 % (CELLAVISION)(BEAKER) (test code = 2817) MONOCYTES - REL 11 % (CELLAVISION)(BEAKER) (test code = 2818) EOSINOPHILS - REL 1 % (CELLAVISION)(BEAKER) (test code = 2819) BASOPHILS - REL 1 % (CELLAVISION)(BEAKER) (test code = 2820) NEUTROPHILS - ABS 10.95 K/ul 1.78-5.38 H (CELLAVISION)(BEAKER) (test code = 2830) LYMPHOCYTES - ABS 1.75 K/ul 1.32-3.57 (CELLAVISION)(BEAKER) (test code = 2831) MONOCYTES - ABS 1.61 K/uL 0.30-0.82 H (CELLAVISION)(BEAKER) (test code = 2832) EOSINOPHILS - ABS 0.15 K/uL 0.04-0.54 (CELLAVISION)(BEAKER) (test code = 2834) BASOPHILS - ABS 0.15 K/uL 0.01-0.08 H (CELLAVISION)(BEAKER) (test code = 2835) TOTAL COUNTED (BEAKER) (test code 100 = 1351) RBC MORPHOLOGY (BEAKER) (test code Normal = 762) WBC MORPHOLOGY (BEAKER) (test code Normal = 487) PLT MORPHOLOGY (BEAKER) (test code Normal = 486) ARTIFACT (CELLAVISION)(BEAKER) Present (test code = 3432) PLATELET CONCENTRATION Adequate (CELLAVISION)(BEAKER) (test code = 3438) Received comment: User comments: Slide comments:[id number] 04:40:00 Test Item Value Reference Range Interpretation Comments MAGNESIUM (BEAKER) (test code = 2.1 mg/dL 1.6-2.6 627) BASIC METABOLIC [id number] 04:40:00 Test Item Value Reference Range Interpretation Comments SODIUM (BEAKER) 138 meq/L 136-145 (test code = 381) POTASSIUM (BEAKER) 3.9 meq/L 3.5-5.1 (test code = 379) CHLORIDE (BEAKER) 105 meq/L 98-107 (test code = 382) CO2 (BEAKER) (test 27 meq/L 22-29 code = 355) BLOOD UREA NITROGEN 23 mg/dL 7-21 H (BEAKER) (test code = 354) CREATININE (BEAKER) 0.68 mg/dL 0.57-1.25 (test code = 358) GLUCOSE RANDOM 103 mg/dL 70-105 (BEAKER) (test code = 652) CALCIUM (BEAKER) 8.9 mg/dL 8.4-10.2 (test code = 697) EGFR (BEAKER) (test 114 mL/min/1.73 ESTIM ATED GFR IS code = 1092) sq m NOT ACCURATE CREATININE CLEARANCE IN PREDICTING GLOMERULAR FILTRATION RATE . ESTIMATED GFR I S NOT APPLICABLE FOR DIALYSIS PATIEN TS. CBC W/PLT COUNT & AUTO [id number] 07:47:00 Test Item Value Reference Range Interpretation Comments WHITE BLOOD CELL COUNT (BEAKER) 18.2 K/ L 3.5-10.5 H (test code = 775) RED BLOOD CELL COUNT (BEAKER) 3.28 M/ L 4.63-6.08 L (test code = 761) HEMOGLOBIN (BEAKER) (test code = 8.8 GM/DL 13.7-17.5 L 410) HEMATOCRIT (BEAKER) (test code = 28.6 % 40.1-51.0 L 411) MEAN CORPUSCULAR VOLUME (BEAKER) 87.2 fL 79.0-92.2 (test code = 753) MEAN CORPUSCULAR HEMOGLOBIN 26.8 pg 25.7-32.2 (BEAKER) (test code = 751) MEAN CORPUSCULAR HEMOGLOBIN CONC 30.8 GM/DL 32.3-36.5 L (BEAKER) (test code = 752) RED CELL DISTRIBUTION WIDTH 15.9 % 11.6-14.4 H (BEAKER) (test code = 412) PLATELET COUNT (BEAKER) (test 207 K/CU MM 150-450 code = 756) MEAN PLATELET VOLUME (BEAKER) 11.3 fL 9.4-12.4 (test code = 754) NUCLEATED RED BLOOD CELLS 0 /100 WBC 0-0 (BEAKER) (test code = 413) (CELLAVISION MANUAL DIFF)2018-11-04 07:47:00 Test Item Value Reference Range Interpretation Comments NEUTROPHILS - REL 82 % (CELLAVISION)(BEAKER) (test code = 2816) LYMPHOCYTES - REL 10 % (CELLAVISION)(BEAKER) (test code = 2817) MONOCYTES - REL 8 % (CELLAVISION)(BEAKER) (test code = 2818) NEUTROPHILS - ABS 14.92 K/ul 1.78-5.38 H (CELLAVISION)(BEAKER) (test code = 2830) LYMPHOCYTES - ABS 1.82 K/ul 1.32-3.57 (CELLAVISION)(BEAKER) (test code = 2831) MONOCYTES - ABS 1.46 K/uL 0.30-0.82 H (CELLAVISION)(BEAKER) (test code = 2832) TOTAL COUNTED (BEAKER) (test code 100 = 1351) SMUDGE CELLS (BEAKER) (test code = Present 1371) GIANT PLATELETS (BEAKER) (test Present code = 313) POLYCHROMATOPHILLIC RBCS(BEAKER) 1+ few (test code = 478) ANISOCYTOSIS (BEAKER) (test code = 1+ few 961) PLATELET CONCENTRATION Adequate (CELLAVISION)(BEAKER) (test code = 3438) Received comment: User comments: Slide comments:[id number] 05:14:00 Test Item Value Reference Range Interpretation Comments PHOSPHORUS (BEAKER) (test code = 2.4 mg/dL 2.3-4.7 604) [id number] 05:14:00 Test Item Value Reference Range Interpretation Comments MAGNESIUM (BEAKER) (test code = 2.2 mg/dL 1.6-2.6 627) BASIC METABOLIC [id number] 05:14:00 Test Item Value Reference Range Interpretation Comments SODIUM (BEAKER) 138 meq/L 136-145 (test code = 381) POTASSIUM (BEAKER) 4.2 meq/L 3.5-5.1 (test code = 379) CHLORIDE (BEAKER) 104 meq/L 98-107 (test code = 382) CO2 (BEAKER) (test 26 meq/L 22-29 code = 355) BLOOD UREA NITROGEN 23 mg/dL 7-21 H (BEAKER) (test code = 354) CREATININE (BEAKER) 0.74 mg/dL 0.57-1.25 (test code = 358) GLUCOSE RANDOM 98 mg/dL 70-105 (BEAKER) (test code = 652) CALCIUM (BEAKER) 9.1 mg/dL 8.4-10.2 (test code = 697) EGFR (BEAKER) (test 104 mL/min/1.73 ESTIM ATED GFR IS code = 1092) sq m NOT ACCURATE CREATININE CLEARANCE IN PREDICTING GLOMERULAR FILTRATION RATE . ESTIMATED GFR I S NOT APPLICABLE FOR DIALYSIS PATIEN TS. POCT-GLUCOSE [id number] 01:09:00 Test Item Value Reference Range Interpretation Comments POC-GLUCOSE METER 110 mg/dL 70-110 TESTED AT [facility] 6720 (BEAKER) (test code = BERTNE R [facility] 1538) [address] POCT-GLUCOSE [id number] 18:03:00 Test Item Value Reference Range Interpretation Comments POC-GLUCOSE METER 102 mg/dL 70-110 TESTED AT [place] [address] ([facility]) (test code = SILVERIO Jarrell [facility] 1538) [id number] POCT-GLUCOSE [id number] 12:11:00 Test Item Value Reference Range Interpretation Comments POC-GLUCOSE METER 159 mg/dL 70-110 H TESTED AT [place] [address] ([facility]) (test code = SILVERIO Jarrell [facility] 1538) [id number] 08:52:00 Test Item Value Reference Range Interpretation Comments ACTIVATED CLOTTING TIME 356 sec TEST ED AT [place] [address] ([facility]) (test code = SILVERIO Jarrell [facility] 441) [id number] 08:52:00 Test Item Value Reference Range Interpretation Comments ACTIVATED CLOTTING TIME 131 sec TEST ED AT [place] [address] ([facility]) (test code = SILVERIO Jarrell [facility] 441) [id number] 05:04:00 Test Item Value Reference Range Interpretation Comments MAGNESIUM (BEAKER) 2.3 mg/dL 1.6-2.6 Specimen slightly (test code = 627) hemolyzed [id number] 05:04:00 Test Item Value Reference Range Interpretation Comments PHOSPHORUS (BEAKER) 1.9 mg/dL 2.3-4.7 L Specimen slightly (test code = 604) hemolyzed BASIC METABOLIC [id number] 05:04:00 Test Item Value Reference Range Interpretation Comments SODIUM (BEAKER) 138 meq/L 136-145 (test code = 381) POTASSIUM (BEAKER) 4.5 meq/L 3.5-5.1 Specimen slightly (test code = 379) hemolyzed CHLORIDE (BEAKER) 106 meq/L 98-107 (test code = 382) CO2 (BEAKER) (test 25 meq/L 22-29 code = 355) BLOOD UREA NITROGEN 29 mg/dL 7-21 H (BEAKER) (test code = 354) CREATININE (BEAKER) 0.81 mg/dL 0.57-1.25 Specimen slightly (test code = 358) hemolyzed GLUCOSE RANDOM 109 mg/dL 70-105 H (BEAKER) (test code = 652) CALCIUM (BEAKER) 9.4 mg/dL 8.4-10.2 (test code = 697) EGFR (BEAKER) (test 93 mL/min/1.73 ESTIMA AIMEE GFR IS code = 1092) sq m NOT ACCURATE CREATININE CLEARANCE IN PREDICTING GLOMERULAR FILTRATION RATE . ESTIMATED GFR I S NOT APPLICABLE FOR DIALYSIS PATIEN TS. CBC (HEMOGRAM ONLY)2018-11-03 04:56:00 Test Item Value Reference Range Interpretation Comments WHITE BLOOD CELL COUNT 21.9 K/ L 3.5-10.5 H (BEAKER) (test code = 775) RED BLOOD CELL COUNT 3.27 M/ L 4.63-6.08 L (BEAKER) (test code = 761) HEMOGLOBIN (BEAKER) 9.0 GM/DL 13.7-17.5 L (test code = 410) HEMATOCRIT (BEAKER) 28.8 % 40.1-51.0 L (test code = 411) MEAN CORPUSCULAR 88.1 fL 79.0-92.2 VOLUME (BEAKER) (test code = 753) MEAN CORPUSCULAR 27.5 pg 25.7-32.2 HEMOGLOBIN (BEAKER) (test code = 751) MEAN CORPUSCULAR 31.3 GM/DL 32.3-36.5 L HEMOGLOBIN CONC (BEAKER) (test code = 752) RED CELL DISTRIBUTION 15.6 % 11.6-14.4 H WIDTH (BEAKER) (test code = 412) PLATELET COUNT 177 K/CU MM 150-[address] T (BEAKER) (test code = result s compared to 756) previous result s; clinical correl ation required. MEAN PLATELET VOLUME 12.0 fL 9.4-12.4 (BEAKER) (test code = 754) NUCLEATED RED BLOOD 0 /100 WBC 0-0 CELLS (BEAKER) (test code = 413) CALCIUM, [id number] 04:27:00 Test Item Value Reference Range Interpretation Comments CALCIUM IONIZED (BEAKER) (test 1.21 mmol/L 1.12-1.27 code = 698) PH, BLOOD (BEAKER) (test code = 7.44 1810) RAD, CHEST, 1 VIEW, NON [id number] 04:27:00while patient is intubated or has chest tubes.Reason for exam:->Status post CV SurgeryShould thisbe performed at the bedside?->YesFINAL REPORT RAD, CHEST, 1 VIEW, NON DEPT INDICATION: Status post CV Surgery COMPARISON: Prior day's exam FINDINGS: Portable frontal view of the chest. IMPRESSION: Lungs and pleura: Unchanged airspace and pleural opacities. No pneumothorax.Heart and mediastinum: Stable contours. Stable surgical changes.Additional findings: None. Signed: Noemy De La Paz Verified Date/Time: 11/03/2018 04:27:49 04:27 AMPOCT- GLUCOSE [id number] 23:42:00 Test Item Value Reference Range Interpretation Comments POC-GLUCOSE METER 117 mg/dL 70-110 H TESTED AT [place] [address] ([facility]) (test code = SILVERIO Jarrell [facility] 1538) [id number] HEMOGLOBIN AND [id number] 17:59:00 Test Item Value Reference Range Interpretation Comments HEMOGLOBIN ([facility]) (test code = 8.4 GM/DL 13.7-17.5 L 410) HEMATOCRIT ([facility]) (test code = 27.3 % 40.1-51.0 L 411) POCT-GLUCOSE [id number] 17:50:00 Test Item Value Reference Range Interpretation Comments POC-GLUCOSE METER 184 mg/dL 70-110 H TESTED AT [place] [address] ([facility]) (test code = FARRAHJAMES Wesly [facility] 1538) [id number] POCT-GLUCOSE [id number] 12:27:00 Test Item Value Reference Range Interpretation Comments POC-GLUCOSE METER 138 mg/dL 70-110 H TESTED AT [place] [address] ([facility]) (test code = SILVERIO Jarrell [facility] 1538) [id number] RAD, CHEST, 1 VIEW, NON [id number] 07:43:00while patient is intubated or has chest tubes.Reason for exam:->Status post CV SurgeryShould thisbe performed at the bedside?->YesFINAL REPORT Chest dated 11/02/2018 COMPARISON: 11/01/2018 Clinical Information: Status post CV Surgery Comment: Heart is enlarged. Pulmonary vasculature is indistinct. Subsegmental atelectasis is seen in the left upper and lower lobe. The right lung is clear. Previously noted [place]-Demetra catheter has been removed. Left chest tube and right IJ central venous catheter remain in place. No pneumothorax is seen. Signed: Fernando Thomas MDReport Verified Date/Time: 11/02/2018 07:43:56 Reading Location: [address] Ortho Consult Reading Room TSH/FREE T4 IF [id number] 04:55:00 Test Item Value Reference Range Interpretation Comments THYROID STIMULATING HORMONE 1.19 uIU/mL 0.35-4.94 (BEAKER) (test code = 772) [id number] 04:35:00 Test Item Value Reference Range Interpretation Comments PHOSPHORUS (BEAKER) (test code = 2.6 mg/dL 2.3-4.7 604) [id number] 04:35:00 Test Item Value Reference Range Interpretation Comments MAGNESIUM (BEAKER) (test code = 2.3 mg/dL 1.6-2.6 627) BASIC METABOLIC [id number] 04:35:00 Test Item Value Reference Range Interpretation Comments SODIUM (BEAKER) 138 meq/L 136-145 (test code = 381) POTASSIUM (BEAKER) 4.5 meq/L 3.5-5.1 (test code = 379) CHLORIDE (BEAKER) 107 meq/L 98-107 (test code = 382) CO2 (BEAKER) (test 27 meq/L 22-29 code = 355) BLOOD UREA NITROGEN 29 mg/dL 7-21 H (BEAKER) (test code = 354) CREATININE (BEAKER) 0.88 mg/dL 0.57-1.25 (test code = 358) GLUCOSE RANDOM 131 mg/dL 70-105 H (BEAKER) (test code = 652) CALCIUM (BEAKER) 8.9 mg/dL 8.4-10.2 (test code = 697) EGFR (BEAKER) (test 85 mL/min/1.73 ESTIMA AIMEE GFR IS code = 1092) sq m NOT ACCURATE CREATININE CLEARANCE IN PREDICTING GLOMERULAR FILTRATION RATE . ESTIMATED GFR I S NOT APPLICABLE FOR DIALYSIS PATIEN TS. OXYGEN SATURATION, [id number] 04:31:00 Test Item Value Reference Range Interpretation Comments O2 SATURATION (MEASURED) (BEAKER) 76.3 % (test code = 1455) CBC (HEMOGRAM ONLY)2018-11-02 04:23:00 Test Item Value Reference Range Interpretation Comments WHITE BLOOD CELL COUNT (BEAKER) 16.0 K/ L 3.5-10.5 H (test code = 775) RED BLOOD CELL COUNT (BEAKER) 2.78 M/ L 4.63-6.08 L (test code = 761) HEMOGLOBIN (BEAKER) (test code = 7.3 GM/DL 13.7-17.5 L 410) HEMATOCRIT (BEAKER) (test code = 24.5 % 40.1-51.0 L 411) MEAN CORPUSCULAR VOLUME (BEAKER) 88.1 fL 79.0-92.2 (test code = 753) MEAN CORPUSCULAR HEMOGLOBIN 26.3 pg 25.7-32.2 (BEAKER) (test code = 751) MEAN CORPUSCULAR HEMOGLOBIN CONC 29.8 GM/DL 32.3-36.5 L (BEAKER) (test code = 752) RED CELL DISTRIBUTION WIDTH 15.8 % 11.6-14.4 H (BEAKER) (test code = 412) PLATELET COUNT (BEAKER) (test 113 K/CU MM 150-450 L code = 756) MEAN PLATELET VOLUME (BEAKER) 11.7 fL 9.4-12.4 (test code = 754) NUCLEATED RED BLOOD CELLS 0 /100 WBC 0-0 (BEAKER) (test code = 413) [id number] 23:42:00 Test Item Value Reference Range Interpretation Comments PHOSPHORUS (BEAKER) (test code = 3.0 mg/dL 2.3-4.7 604) [id number] 23:42:00 Test Item Value Reference Range Interpretation Comments MAGNESIUM (BEAKER) (test code = 2.2 mg/dL 1.6-2.6 627) BASIC METABOLIC [id number] 23:42:00 Test Item Value Reference Range Interpretation Comments SODIUM (BEAKER) 139 meq/L 136-145 (test code = 381) POTASSIUM (BEAKER) 5.0 meq/L 3.5-5.1 (test code = 379) CHLORIDE (BEAKER) 109 meq/L 98-107 H (test code = 382) CO2 (BEAKER) (test 26 meq/L 22-29 code = 355) BLOOD UREA NITROGEN 27 mg/dL 7-21 H (BEAKER) (test code = 354) CREATININE (BEAKER) 0.91 mg/dL 0.57-1.25 (test code = 358) GLUCOSE RANDOM 145 mg/dL 70-105 H (BEAKER) (test code = 652) CALCIUM (BEAKER) 8.9 mg/dL 8.4-10.2 (test code = 697) EGFR (BEAKER) (test 82 mL/min/1.73 ESTIMA AIMEE GFR IS code = 1092) sq m NOT ACCURATE CREATININE CLEARANCE IN PREDICTING GLOMERULAR FILTRATION RATE . ESTIMATED GFR I S NOT APPLICABLE FOR DIALYSIS PATIEN TS. POCT-GLUCOSE [id number] 23:31:00 Test Item Value Reference Range Interpretation Comments POC-GLUCOSE METER 147 mg/dL 70-110 H TESTED AT [facility] 67[address] ([facility]) (test code = [facility] 1538) [address] CALCIUM, [id number] 23:04:00 Test Item Value Reference Range Interpretation Comments CALCIUM IONIZED (BEAKER) (test 1.20 mmol/L 1.12-1.27 code = 698) PH, BLOOD (BEAKER) (test code = 7.42 1810) VANCOMYCIN LEVEL, [id number] 21:11:00 Test Item Value Reference Range Interpretation Comments VANCOMYCIN TROUGH (BEAKER) (test 12.1 ug/mL 10.0-20.0 code = 522) DIGOXIN [id number] 08:07:00 Test Item Value Reference Range Interpretation Comments DIGOXIN LEVEL (BEAKER) (test code = 1.1 ng/mL 0.8-2.0 669) TSH/FREE T4 IF [id number] 08:07:00 Test Item Value Reference Range Interpretation Comments THYROID STIMULATING HORMONE 0.59 uIU/mL 0.35-4.94 (BEAKER) (test code = 772) RAD, CHEST, 1 VIEW, NON [id number] 07:32:00while patient is intubated or has chest tubes.Reason for exam:->Status post CV SurgeryShould thisbe performed at the bedside?->YesFINAL REPORT RAD, CHEST, 1 VIEW, NON DEPT CLINICAL INDICATION: Status post CVSurgery COMPARISON: Radiograph 10/31/2018 TECHNIQUE: AP view of the chest FINDINGS: Support devices are unchanged. Lung volumes remain low. No new focal consolidation, pleural effusion, or pneumothorax.Cardiomediastinal silhouette, nury, and pulmonary vasculature are unchanged. IMPRESSION:No significant interval change. Signed: Tiago Juarezepbrooke Verified Date/Time: 11/01/2018 07:32:02 Electro nically signed by: TIAGO JUAREZ MD on 11/01/2018 07:32 AMPHOSPHORUS 2018-11-01 05:25:00 Test Item Value Reference Range Interpretation Comments PHOSPHORUS (BEAKER) (test code = 4.5 mg/dL 2.3-4.7 604) [id number] 05:25:00 Test Item Value Reference Range Interpretation Comments MAGNESIUM (BEAKER) (test code = 2.0 mg/dL 1.6-2.6 627) BASIC METABOLIC [id number] 05:25:00 Test Item Value Reference Range Interpretation Comments SODIUM (BEAKER) 138 meq/L 136-145 (test code = 381) POTASSIUM (BEAKER) 4.8 meq/L 3.5-5.1 (test code = 379) CHLORIDE (BEAKER) 108 meq/L 98-107 H (test code = 382) CO2 (BEAKER) (test 24 meq/L 22-29 code = 355) BLOOD UREA NITROGEN 20 mg/dL 7-21 (BEAKER) (test code = 354) CREATININE (BEAKER) 0.91 mg/dL 0.57-1.25 (test code = 358) GLUCOSE RANDOM 167 mg/dL 70-105 H (BEAKER) (test code = 652) CALCIUM (BEAKER) 8.6 mg/dL 8.4-10.2 (test code = 697) EGFR (BEAKER) (test 82 mL/min/1.73 ESTIMA AIMEE GFR IS code = 1092) sq m NOT ACCURATE CREATININE CLEARANCE IN PREDICTING GLOMERULAR FILTRATION RATE . ESTIMATED GFR I S NOT APPLICABLE FOR DIALYSIS PATIEN TS. OXYGEN SATURATION, [id number] 04:47:00 Test Item Value Reference Range Interpretation Comments O2 SATURATION (MEASURED) (BEAKER) 60.6 % (test code = 1455) LACTIC ACID, [id number] 04:45:00 Test Item Value Reference Range Interpretation Comments LACTATE BLOOD ARTERIAL (2) 1.3 mmol/L 0.5-2.2 (BEAKER) (test code = 2874) CBC (HEMOGRAM ONLY)2018-11-01 04:40:00 Test Item Value Reference Range Interpretation Comments WHITE BLOOD CELL COUNT (BEAKER) 15.8 K/ L 3.5-10.5 H (test code = 775) RED BLOOD CELL COUNT (BEAKER) 3.09 M/ L 4.63-6.08 L (test code = 761) HEMOGLOBIN (BEAKER) (test code = 8.2 GM/DL 13.7-17.5 L 410) HEMATOCRIT (BEAKER) (test code = 26.9 % 40.1-51.0 L 411) MEAN CORPUSCULAR VOLUME (BEAKER) 87.1 fL 79.0-92.2 (test code = 753) MEAN CORPUSCULAR HEMOGLOBIN 26.5 pg 25.7-32.2 (BEAKER) (test code = 751) MEAN CORPUSCULAR HEMOGLOBIN CONC 30.5 GM/DL 32.3-36.5 L (BEAKER) (test code = 752) RED CELL DISTRIBUTION WIDTH 15.8 % 11.6-14.4 H (BEAKER) (test code = 412) PLATELET COUNT (BEAKER) (test 161 K/CU MM 150-450 code = 756) MEAN PLATELET VOLUME (BEAKER) 11.5 fL 9.4-12.4 (test code = 754) NUCLEATED RED BLOOD CELLS 0 /100 WBC 0-0 (BEAKER) (test code = 413) BLOOD GAS, [id number] 04:37:00 Test Item Value Reference Range Interpretation Comments PH ARTERIAL (BEAKER) (test code = 7.39 7.35-7.45 383) PCO2 ARTERIAL (BEAKER) (test code 42 mmHg 35-45 = 384) PO2 ARTERIAL (BEAKER) (test code 115 mmHg 80-90 H = 385) O2 SATURATION ARTERIAL (BEAKER) 98.1 % 96.0-97.0 H (test code = 386) HCO3 ARTERIAL (BEAKER) (test code 25 mmol/L 21-29 = 388) BASE EXCESS ARTERIAL (BEAKER) -0.2 mmol/L -2.0-3.0 (test code = 387) PATIENT TEMPERATURE (BEAKER) 37.4 C (test code = 1818) FIO2 (BEAKER) (test code = 1819) 32.0 % RAD, CHEST, 1 VIEW, NON [id number] 23:12:00Reason for exam:->iabp repositionShould this be performed at the bedside?->YesFINAL REPORT RAD, CHEST, 1 VIEW, NON DEPT INDICATION: iabp reposition COMPARIS ON: Same day's exam FINDINGS: Portable frontal view [...] Paz Verified Date/Time: 10/31/2018 23:12:48 LACTIC ACID, [id number] 21:33:00 Test Item Value Reference Range Interpretation Comments LACTATE BLOOD ARTERIAL (2) 1.1 mmol/L 0.5-2.2 (BEAKER) (test code = 2874) RAD, CHEST, 1 VIEW, NON [id number] 21:22:00Reason for exam:->iabp placement/adjustmentShould this be performed at the bedside?->YesFINAL REPORT RAD, CHEST, 1 VIEW, NON DEPT INDICATION: iabp placement/adjustment COMPARISON: October 31, 2018 FINDINGS: Portable frontal view of the chest. IMPRESSION: Support Lines: IABP marker projects over the apex of the aortic arch, consider repositioning 2 cm caudally along the course of the descending aorta. Right IJ [place]-Demetra catheter tip projects over the main pulmonary artery, stable in appearance. Interval extubation and removal of enteric tube. Left chest tube is stable. Lungs and pleura: Retrocardiac and left lung base opacities with air bronchograms suggestive of atelectasis or pneumonia, stable. Low lung volumes. Stable perihilar interstitial opacities. No pneumothorax.Heart and mediastinum: Stable enlarged cardiac silhouette. Additional findings: None. Signed: Marcus Lee MDReport Verified Date/Time: 10/31/2018 21:22:46 BLOOD GAS, [id number] 21:14:00 Test Item Value Reference Range Interpretation Comments PH ARTERIAL (BEAKER) (test code = 7.44 7.35-7.45 383) PCO2 ARTERIAL (BEAKER) (test code 36 mmHg 35-45 = 384) PO2 ARTERIAL (BEAKER) (test code 152 mmHg 80-90 H = 385) O2 SATURATION ARTERIAL (BEAKER) 99.0 % 96.0-97.0 H (test code = 386) HCO3 ARTERIAL (BEAKER) (test code 24 mmol/L 21-29 = 388) BASE EXCESS ARTERIAL (BEAKER) -0.2 mmol/L -2.0-3.0 (test code = 387) PATIENT TEMPERATURE (BEAKER) 37.7 C (test code = 1818) FIO2 (BEAKER) (test code = 1819) 32.0 % GLUCOSE-STAT [id number] 21:14:00 Test Item Value Reference Range Interpretation Comments GLUCOSE RANDOM (BEAKER) (test code 156 mg/dL 70-110 H = 652) HGB/HCT (H&H) - STAT [id number] 21:14:00 Test Item Value Reference Range Interpretation Comments HEMOGLOBIN (BEAKER) (test code = 8.7 g/dL 13.0-16.8 L 410) HEMATOCRIT (BEAKER) (test code = 26.0 % 40.0-50.0 L 411) CALCIUM, [id number] 21:14:00 Test Item Value Reference Range Interpretation Comments CALCIUM IONIZED (BEAKER) (test 1.19 mmol/L 1.12-1.27 code = 698) PH, BLOOD (BEAKER) (test code = 7.44 1810) SODIUM NA-STAT [id number] 21:13:00 Test Item Value Reference Range Interpretation Comments SODIUM (BEAKER) (test code = 381) 136 meq/L 135-148 POTASSIUM-STAT [id number] 21:13:00 Test Item Value Reference Range Interpretation Comments POTASSIUM (BEAKER) (test code = 4.4 meq/L 3.6-5.5 379) SODIUM NA-STAT [id number] 18:46:00 Test Item Value Reference Range Interpretation Comments SODIUM (BEAKER) (test code = 381) 136 meq/L 135-148 POTASSIUM-STAT [id number] 18:46:00 Test Item Value Reference Range Interpretation Comments POTASSIUM (BEAKER) (test code = 4.3 meq/L 3.6-5.5 379) HGB/HCT (H&H) - STAT [id number] 18:46:00 Test Item Value Reference Range Interpretation Comments HEMOGLOBIN (BEAKER) (test code = 8.8 g/dL 13.0-16.8 L 410) HEMATOCRIT (BEAKER) (test code = 26.0 % 40.0-50.0 L 411) GLUCOSE-STAT [id number] 18:46:00 Test Item Value Reference Range Interpretation Comments GLUCOSE RANDOM (BEAKER) (test code 167 mg/dL 70-110 H = 652) BLOOD GAS, [id number] 18:46:00 Test Item Value Reference Range Interpretation Comments PH ARTERIAL (BEAKER) (test code = 7.44 7.35-7.45 383) PCO2 ARTERIAL (BEAKER) (test code 38 mmHg 35-45 = 384) PO2 ARTERIAL (BEAKER) (test code = 118 mmHg 80-90 H 385) O2 SATURATION ARTERIAL (BEAKER) 98.3 % 96.0-97.0 H (test code = 386) HCO3 ARTERIAL (BEAKER) (test code 25 mmol/L 21-29 = 388) BASE EXCESS ARTERIAL (BEAKER) 1.2 mmol/L -2.0-3.0 (test code = 387) PATIENT TEMPERATURE (BEAKER) (test 37.8 C code = 1818) FIO2 (BEAKER) (test code = 1819) 40.0 % CBC W/PLT COUNT & AUTO [id number] 16:50:00 Test Item Value Reference Range Interpretation Comments WHITE BLOOD CELL COUNT (BEAKER) 27.7 K/ L 3.5-10.5 H (test code = 775) RED BLOOD CELL COUNT (BEAKER) 3.27 M/ L 4.63-6.08 L (test code = 761) HEMOGLOBIN (BEAKER) (test code = 8.8 GM/DL 13.7-17.5 L 410) HEMATOCRIT (BEAKER) (test code = 28.5 % 40.1-51.0 L 411) MEAN CORPUSCULAR VOLUME (BEAKER) 87.2 fL 79.0-92.2 (test code = 753) MEAN CORPUSCULAR HEMOGLOBIN 26.9 pg 25.7-32.2 (BEAKER) (test code = 751) MEAN CORPUSCULAR HEMOGLOBIN CONC 30.9 GM/DL 32.3-36.5 L (BEAKER) (test code = 752) RED CELL DISTRIBUTION WIDTH 15.8 % 11.6-14.4 H (BEAKER) (test code = 412) PLATELET COUNT (BEAKER) (test 159 K/CU MM 150-450 code = 756) MEAN PLATELET VOLUME (BEAKER) 12.1 fL 9.4-12.4 (test code = 754) NUCLEATED RED BLOOD CELLS 0 /100 WBC 0-0 (BEAKER) (test code = 413) (CELLAVISION MANUAL DIFF)2018-10-31 16:50:00 Test Item Value Reference Range Interpretation Comments NEUTROPHILS - REL 76 % (CELLAVISION)(BEAKER) (test code = 2816) LYMPHOCYTES - REL 13 % (CELLAVISION)(BEAKER) (test code = 2817) MONOCYTES - REL 2 % (CELLAVISION)(BEAKER) (test code = 2818) EOSINOPHILS - REL 5 % (CELLAVISION)(BEAKER) (test code = 2819) BASOPHILS - REL 1 % (CELLAVISION)(BEAKER) (test code = 2820) BANDS - REL (CELLAVISION)(BEAKER) 2 % 0-10 (test code = 2826) NEUTROPHILS - ABS 21.05 K/ul 1.78-5.38 H (CELLAVISION)(BEAKER) (test code = 2830) LYMPHOCYTES - ABS 3.60 K/ul 1.32-3.57 H (CELLAVISION)(BEAKER) (test code = 2831) MONOCYTES - ABS 0.55 K/uL 0.30-0.82 (CELLAVISION)(BEAKER) (test code = 2832) EOSINOPHILS - ABS 1.39 K/uL 0.04-0.54 H (CELLAVISION)(BEAKER) (test code = 2834) BASOPHILS - ABS 0.28 K/uL 0.01-0.08 H (CELLAVISION)(BEAKER) (test code = 2835) BANDS - ABS (CELLAVISION)(BEAKER) 0.55 K/uL 0.00-0.80 (test code = 2840) TOTAL COUNTED (BEAKER) (test code 100 = 1351) RBC MORPHOLOGY (BEAKER) (test code Normal = 762) WBC MORPHOLOGY (BEAKER) (test code Normal = 487) PLT MORPHOLOGY (BEAKER) (test code Normal = 486) ARTIFACT (CELLAVISION)(BEAKER) Present (test code = 3432) PLATELET CONCENTRATION Adequate (CELLAVISION)(BEAKER) (test code = 3438) Received comment: User comments: Slide comments:POCT-GLUCOSE [id number] 16:40:00 Test Item Value Reference Range Interpretation Comments POC-GLUCOSE METER 158 mg/dL 70-110 H TESTED AT [facility] 6720 (BEAKER) (test code = [place] 1538) [id number] 15:00:00 Test Item Value Reference Range Interpretation Comments PHOSPHORUS (BEAKER) (test code = 4.0 mg/dL 2.3-4.7 604) [id number] 15:00:00 Test Item Value Reference Range Interpretation Comments MAGNESIUM (BEAKER) (test code = 2.4 mg/dL 1.6-2.6 627) BASIC METABOLIC [id number] 15:00:00 Test Item Value Reference Range Interpretation Comments SODIUM (BEAKER) 138 meq/L 136-145 (test code = 381) POTASSIUM (BEAKER) 4.3 meq/L 3.5-5.1 (test code = 379) CHLORIDE (BEAKER) 109 meq/L 98-107 H (test code = 382) CO2 (BEAKER) (test 23 meq/L 22-29 code = 355) BLOOD UREA NITROGEN 16 mg/dL 7-21 (BEAKER) (test code = 354) CREATININE (BEAKER) 0.78 mg/dL 0.57-1.25 (test code = 358) GLUCOSE RANDOM 173 mg/dL 70-105 H (BEAKER) (test code = 652) CALCIUM (BEAKER) 9.4 mg/dL 8.4-10.2 (test code = 697) EGFR (BEAKER) (test 98 mL/min/1.73 ESTIMA AIMEE GFR IS code = 1092) sq m NOT ACCURATE CREATININE CLEARANCE IN PREDICTING GLOMERULAR FILTRATION RATE . ESTIMATED GFR I S NOT APPLICABLE FOR DIALYSIS PATIEN TS. HEPATIC FUNCTION [id number] 15:00:00 Test Item Value Reference Range Interpretation Comments TOTAL PROTEIN (BEAKER) (test code = 5.1 gm/dL 6.0-8.3 L 770) ALBUMIN (BEAKER) (test code = 1145) 2.9 g/dL 3.5-5.0 L BILIRUBIN TOTAL (BEAKER) (test code 0.9 mg/dL 0.2-1.2 = 377) BILIRUBIN DIRECT (BEAKER) (test 0.4 mg/dL 0.1-0.5 code = 706) ALKALINE PHOSPHATASE (BEAKER) (test 59 U/L 40-150 code = 346) AST (SGOT) (BEAKER) (test code = 51 U/L 5-34 H 353) ALT (SGPT) (BEAKER) (test code = 14 U/L 6-55 347) LACTIC ACID, [id number] 14:55:00 Test Item Value Reference Range Interpretation Comments LACTATE BLOOD ARTERIAL (2) 1.4 mmol/L 0.5-2.2 (BEAKER) (test code = 2874) [id number] 14:54:00 Test Item Value Reference Range Interpretation Comments PROTIME (BEAKER) (test code = 18.5 seconds 11.9-14.2 H 759) INR (BEAKER) (test code = 370) 1.6 <=5.9 PARTIAL THROMBOPLASTIN TIME 32.5 seconds 22.5-36.0 (BEAKER) (test code = 760) Effective 08/06/2018: PT Reference Range ChangeNew: 11.9-14.2 Previous: 11.7- 14.7RECOMMENDED COUMADIN/WARFARIN INR THERAPY RANGESSTANDARD DOSE: 2.0-3.0 Includes: PROPHYLAXIS for venous thrombosis, systemic embolization; TREATMENT for venous thrombosis and/or pulmonary embolus.HIGH RISK: Target INR is2.5-3.5 for patients wiht mechanical heart valves.CBC (HEMOGRAM ONLY)2018-10-31 14:43:00 Test Item Value Reference Range Interpretation Comments WHITE BLOOD CELL COUNT (BEAKER) 22.3 K/ L 3.5-10.5 H (test code = 775) RED BLOOD CELL COUNT (BEAKER) 3.56 M/ L 4.63-6.08 L (test code = 761) HEMOGLOBIN (BEAKER) (test code = 9.5 GM/DL 13.7-17.5 L 410) HEMATOCRIT (BEAKER) (test code = 30.9 % 40.1-51.0 L 411) MEAN CORPUSCULAR VOLUME (BEAKER) 86.8 fL 79.0-92.2 (test code = 753) MEAN CORPUSCULAR HEMOGLOBIN 26.7 pg 25.7-32.2 (BEAKER) (test code = 751) MEAN CORPUSCULAR HEMOGLOBIN CONC 30.7 GM/DL 32.3-36.5 L (BEAKER) (test code = 752) RED CELL DISTRIBUTION WIDTH 15.6 % 11.6-14.4 H (BEAKER) (test code = 412) PLATELET COUNT (BEAKER) (test 149 K/CU MM 150-450 L code = 756) MEAN PLATELET VOLUME (BEAKER) 11.0 fL 9.4-12.4 (test code = 754) NUCLEATED RED BLOOD CELLS 0 /100 WBC 0-0 (BEAKER) (test code = 413) GLUCOSE-STAT [id number] 14:38:00 Test Item Value Reference Range Interpretation Comments GLUCOSE RANDOM (BEAKER) (test code 176 mg/dL 70-110 H = 652) HGB/HCT (H&H) - STAT [id number] 14:38:00 Test Item Value Reference Range Interpretation Comments HEMOGLOBIN (BEAKER) (test code = 9.9 g/dL 13.0-16.8 L 410) HEMATOCRIT (BEAKER) (test code = 29.0 % 40.0-50.0 L 411) SODIUM NA-STAT [id number] 14:37:00 Test Item Value Reference Range Interpretation Comments SODIUM (BEAKER) (test code = 381) 138 meq/L 135-148 POTASSIUM-STAT [id number] 14:37:00 Test Item Value Reference Range Interpretation Comments POTASSIUM (BEAKER) (test code = 4.1 meq/L 3.6-5.5 379) BLOOD GAS, [id number] 14:37:00 Test Item Value Reference Range Interpretation Comments PH ARTERIAL (BEAKER) (test code = 7.42 7.35-7.45 383) PCO2 ARTERIAL (BEAKER) (test code 39 mmHg 35-45 = 384) PO2 ARTERIAL (BEAKER) (test code = 116 mmHg 80-90 H 385) O2 SATURATION ARTERIAL (BEAKER) 98.4 % 96.0-97.0 H (test code = 386) HCO3 ARTERIAL (BEAKER) (test code 25 mmol/L 21-29 = 388) BASE EXCESS ARTERIAL (BEAKER) 0.2 mmol/L -2.0-3.0 (test code = 387) PATIENT TEMPERATURE (BEAKER) (test 36.1 C code = 1818) FIO2 (BEAKER) (test code = 1819) 60.0 % OXYGEN SATURATION, [id number] 14:36:00 Test Item Value Reference Range Interpretation Comments O2 SATURATION (MEASURED) (BEAKER) 69.5 % (test code = 1455) CALCIUM, [id number] 14:36:00 Test Item Value Reference Range Interpretation Comments CALCIUM IONIZED (BEAKER) (test 1.27 mmol/L 1.12-1.27 code = 698) PH, BLOOD (BEAKER) (test code = 7.40 1810) RAD, CHEST, 1 VIEW, NON [id number] 14:31:00Reason for exam:->s/p intubationShould this be performed at the bedside?->YesFINAL REPORT RAD, CHEST, 1 VIEW, NON DEPT INDICATION: s/p intubation COMPARISO N: Prior day's exam FINDINGS: Portable frontal view of the chest. IMPRESSION: Support Lines: Interval insertion of ET tube with tip 3 cm superior to the prashanth. IABP marker is at the aortic notch and positioning 2 cm toward the feet is recommended. [place]-Demetra catheter tip overlies the pulmonary outflow tract. NG tube descends below the diaphragm. Lungs and pleura: Unchanged airspace and pleural opacities. No pneumothorax.Heart and mediastinum: Stable contours. Additional findings: None. Signed: Medardo Serrato MDReport Verified Date/Time: 10/31/2018 14:31:36 Reading Location: [facility] Radiology Reading Room MBOELASTOGRAPH (TEG)2018-10-31 13:12:00 Test Item Value Reference Range Interpretation Comments TEG ACTIVATED CLOTTING TIME 11.2 minutes 4.0-7.0 H (BEAKER) (test code = 1407) TEG FIBRINOGEN ACTIVITY (BEAKER) 58.6 degrees 61.0-73.0 L (test code = 1408) TEG PLT. AGGREGATION (BEAKER) 61.6 MM 55.0-65.0 (test code = 1409) TGH ACTIVATED CLOTTING TIME 10.6 minutes 4.0-7.0 H (BEAKER) (test code = 1411) TGH FIBRINOGEN ACTIVITY (BEAKER) 50.2 degrees 61.0-73.0 L (test code = 1412) TGH PLT. AGGREGATION (BEAKER) 58.6 MM 55.0-65.0 (test code = 1413) [id number] 12:45:00 Test Item Value Reference Range Interpretation Comments ACTIVATED CLOTTING TIME 114 sec TEST ED AT [place] [address] ([facility]) (test code = [place] [address]) [id number] 12:45:00 Test Item Value Reference Range Interpretation Comments ACTIVATED CLOTTING TIME 450 sec TEST ED AT [place] [address] ([facility]) (test code = [place] Jar[place] [address]) [id number] 12:45:00 Test Item Value Reference Range Interpretation Comments ACTIVATED CLOTTING TIME 483 sec TEST ED AT [place] [address] ([facility]) (test code = [place] [address]) [id number] 12:45:00 Test Item Value Reference Range Interpretation Comments ACTIVATED CLOTTING TIME 444 sec TEST ED AT [place] [address] ([facility]) (test code = [place] [address]) [id number] 12:45:00 Test Item Value Reference Range Interpretation Comments ACTIVATED CLOTTING TIME 433 sec TEST ED AT [place] [address] ([facility]) (test code = SIL[place] Jarrell [facility] [address]) [address] [id number] 12:45:00 Test Item Value Reference Range Interpretation Comments ACTIVATED CLOTTING TIME 417 sec TEST ED AT [place] [address] ([facility]) (test code = [place] Jarrell [place] [address]) [address] [id number] 12:36:00 Test Item Value Reference Range Interpretation Comments FIBRINOGEN LEVEL ([facility]) (test 281 mg/dl 225-434 code = 658) [id number] 12:36:00 Test Item Value Reference Range Interpretation Comments PARTIAL THROMBOPLASTIN TIME 31.9 seconds 22.5-36.0 ([facility]) (test code = 760) PROTHROMBIN [id number] 12:35:00 Test Item Value Reference Range Interpretation Comments PROTIME ([facility]) (test code = 21.9 seconds 11.9-14.2 H 759) INR ([facility]) (test code = 370) 2.0 <=5.9 Effective 08/06/2018: PT Reference Range ChangeNew: 11.9-14.2 Previous: 11.7- 14.7RECOMMENDED COUMADIN/WARFARIN INR THERAPY RANGESSTANDARD DOSE: 2.0-3.0 Includes: PROPHYLAXIS for venous thrombosis, systemic embolization; TREATMENT for venous thrombosis and/or pulmonary embolus.HIGH RISK: Target INR is2.5-3.5 for patients wiht mechanical heart valves.PLATELET [id number] 12:27:00 Test Item Value Reference Range Interpretation Comments PLATELET COUNT (AKER) (test 162 K/CU MM 150-450 code = 756) BLOOD GAS, [id number] 12:24:00 Test Item Value Reference Range Interpretation Comments PH ARTERIAL (BEAKER) (test code = 7.38 7.35-7.45 383) PCO2 ARTERIAL (BEAKER) (test code 41 mmHg 35-45 = 384) PO2 ARTERIAL (BEAKER) (test code 367 mmHg 80-90 H = 385) O2 SATURATION ARTERIAL (BEAKER) 99.8 % 96.0-97.0 H (test code = 386) HCO3 ARTERIAL (BEAKER) (test code 24 mmol/L 21-29 = 388) BASE EXCESS ARTERIAL (BEAKER) -1.4 mmol/L -2.0-3.0 (test code = 387) PATIENT TEMPERATURE (BEAKER) 35.2 C (test code = 1818) FIO2 (BEAKER) (test code = 1819) 100.0 % GLUCOSE-STAT [id number] 12:24:00 Test Item Value Reference Range Interpretation Comments GLUCOSE RANDOM (BEAKER) (test code 227 mg/dL 70-110 H = 652) HGB/HCT (H&H) - STAT [id number] 12:24:00 Test Item Value Reference Range Interpretation Comments HEMOGLOBIN (BEAKER) (test code = 10.7 g/dL 13.0-16.8 L 410) HEMATOCRIT (BEAKER) (test code = 31.0 % 40.0-50.0 L 411) CALCIUM, [id number] 12:24:00 Test Item Value Reference Range Interpretation Comments CALCIUM IONIZED (BEAKER) (test 1.36 mmol/L 1.12-1.27 H code = 698) PH, BLOOD (BEAKER) (test code = 7.36 1810) SODIUM NA-STAT [id number] 12:21:00 Test Item Value Reference Range Interpretation Comments SODIUM (BEAKER) (test code = 381) 137 meq/L 135-148 POTASSIUM-STAT [id number] 12:21:00 Test Item Value Reference Range Interpretation Comments POTASSIUM (BEAKER) (test code = 3.5 meq/L 3.6-5.5 L 379) PLATELET AGGREGATION: FUNCTION [id number] 11:59:00 Test Item Value Reference Range Interpretation Comments [id number] Jessica Ferguson MD (BEAKER) (test code = (electronic signature) 9332) PLATELET COUNT AGG 237 K/CU MM 150-450 (BEAKER) (test code = 5440) PLATELET RICH 242 k/cu mm 200-300 PLASMA(BEAKER) (test code = 2131) PLATELET FUNCTION Pattern of SCREEN INTERPRETATION disaggregation present (BEAKER) (test code = which may be 4086) characteristic of P2Y12 inhibitor effect. Correlation with medication history is required. Platelet Function Screen results may be falsely low with platelet counts<75,000/cu mm.POTASSIUM-STAT [id number] 11:00:00 Test Item Value Reference Range Interpretation Comments POTASSIUM (BEAKER) (test code = 5.5 meq/L 3.6-5.5 379) BLOOD GAS, [id number] 11:00:00 Test Item Value Reference Range Interpretation Comments PH ARTERIAL (BEAKER) (test code = 7.40 7.35-7.45 383) PCO2 ARTERIAL (BEAKER) (test code 41 mmHg 35-45 = 384) PO2 ARTERIAL (BEAKER) (test code = 283 mmHg 80-90 H 385) O2 SATURATION ARTERIAL (BEAKER) 99.7 % 96.0-97.0 H (test code = 386) HCO3 ARTERIAL (BEAKER) (test code 25 mmol/L 21-29 = 388) BASE EXCESS ARTERIAL (BEAKER) 0.2 mmol/L -2.0-3.0 (test code = 387) PATIENT TEMPERATURE (BEAKER) (test 35.5 C code = 1818) FIO2 (BEAKER) (test code = 1819) 70.0 % SODIUM NA-STAT [id number] 11:00:00 Test Item Value Reference Range Interpretation Comments SODIUM (BEAKER) (test code = 381) 133 meq/L 135-148 L GLUCOSE-STAT [id number] 11:00:00 Test Item Value Reference Range Interpretation Comments GLUCOSE RANDOM (BEAKER) (test code 248 mg/dL 70-110 H = 652) HGB/HCT (H&H) - STAT [id number] 11:00:00 Test Item Value Reference Range Interpretation Comments HEMOGLOBIN (BEAKER) (test code = 8.7 g/dL 13.0-16.8 L 410) HEMATOCRIT (BEAKER) (test code = 26.0 % 40.0-50.0 L 411) SODIUM NA-STAT [id number] 10:36:00 Test Item Value Reference Range Interpretation Comments SODIUM (BEAKER) (test code = 381) 135 meq/L 135-148 POTASSIUM-STAT [id number] 10:36:00 Test Item Value Reference Range Interpretation Comments POTASSIUM (BEAKER) (test code = 5.2 meq/L 3.6-5.5 379) BLOOD GAS, [id number] 10:36:00 Test Item Value Reference Range Interpretation Comments PH ARTERIAL (BEAKER) (test code = 7.38 7.35-7.45 383) PCO2 ARTERIAL (BEAKER) (test code 43 mmHg 35-45 = 384) PO2 ARTERIAL (BEAKER) (test code = 300 mmHg 80-90 H 385) O2 SATURATION ARTERIAL (BEAKER) 99.7 % 96.0-97.0 H (test code = 386) HCO3 ARTERIAL (BEAKER) (test code 27 mmol/L 21-29 = 388) BASE EXCESS ARTERIAL (BEAKER) 0.2 mmol/L -2.0-3.0 (test code = 387) PATIENT TEMPERATURE (BEAKER) (test 30.4 C code = 1818) FIO2 (BEAKER) (test code = 1819) 65.0 % GLUCOSE-STAT [id number] 10:36:00 Test Item Value Reference Range Interpretation Comments GLUCOSE RANDOM (BEAKER) (test code 248 mg/dL 70-110 H = 652) HGB/HCT (H&H) - STAT [id number] 10:36:00 Test Item Value Reference Range Interpretation Comments HEMOGLOBIN (BEAKER) (test code = 9.9 g/dL 13.0-16.8 L 410) HEMATOCRIT (BEAKER) (test code = 29.0 % 40.0-50.0 L 411) SODIUM NA-STAT [id number] 10:05:00 Test Item Value Reference Range Interpretation Comments SODIUM (BEAKER) (test code = 381) 136 meq/L 135-148 POTASSIUM-STAT [id number] 10:05:00 Test Item Value Reference Range Interpretation Comments POTASSIUM (BEAKER) (test code = 4.5 meq/L 3.6-5.5 379) BLOOD GAS, [id number] 10:05:00 Test Item Value Reference Range Interpretation Comments PH ARTERIAL (BEAKER) (test code = 7.38 7.35-7.45 383) PCO2 ARTERIAL (BEAKER) (test code 46 mmHg 35-45 H = 384) PO2 ARTERIAL (BEAKER) (test code = 310 mmHg 80-90 H 385) O2 SATURATION ARTERIAL (BEAKER) 99.7 % 96.0-97.0 H (test code = 386) HCO3 ARTERIAL (BEAKER) (test code 28 mmol/L 21-29 = 388) BASE EXCESS ARTERIAL (BEAKER) 1.0 mmol/L -2.0-3.0 (test code = 387) PATIENT TEMPERATURE (BEAKER) (test 30.6 C code = 1818) FIO2 (BEAKER) (test code = 1819) 65.0 % GLUCOSE-STAT [id number] 10:05:00 Test Item Value Reference Range Interpretation Comments GLUCOSE RANDOM (BEAKER) (test code 214 mg/dL 70-110 H = 652) HGB/HCT (H&H) - STAT [id number] 10:05:00 Test Item Value Reference Range Interpretation Comments HEMOGLOBIN (BEAKER) (test code = 9.5 g/dL 13.0-16.8 L 410) HEMATOCRIT (BEAKER) (test code = 28.0 % 40.0-50.0 L 411) BLOOD GAS, [id number] 09:41:00 Test Item Value Reference Range Interpretation Comments PH ARTERIAL (BEAKER) (test code = 7.44 7.35-7.45 383) PCO2 ARTERIAL (BEAKER) (test code 37 mmHg 35-45 = 384) PO2 ARTERIAL (BEAKER) (test code = 350 mmHg 80-90 H 385) O2 SATURATION ARTERIAL (BEAKER) 99.8 % 96.0-97.0 H (test code = 386) HCO3 ARTERIAL (BEAKER) (test code 26 mmol/L 21-29 = 388) BASE EXCESS ARTERIAL (BEAKER) 0.4 mmol/L -2.0-3.0 (test code = 387) PATIENT TEMPERATURE (BEAKER) (test 31.0 C code = 1818) FIO2 (BEAKER) (test code = 1819) 70.0 % GLUCOSE-STAT [id number] 09:41:00 Test Item Value Reference Range Interpretation Comments GLUCOSE RANDOM (BEAKER) (test code 176 mg/dL 70-110 H = 652) HGB/HCT (H&H) - STAT [id number] 09:41:00 Test Item Value Reference Range Interpretation Comments HEMOGLOBIN (BEAKER) (test code = 10.0 g/dL 13.0-16.8 L 410) HEMATOCRIT (BEAKER) (test code = 29.0 % 40.0-50.0 L 411) SODIUM NA-STAT [id number] 09:40:00 Test Item Value Reference Range Interpretation Comments SODIUM (BEAKER) (test code = 381) 136 meq/L 135-148 POTASSIUM-STAT [id number] 09:40:00 Test Item Value Reference Range Interpretation Comments POTASSIUM (BEAKER) (test code = 3.9 meq/L 3.6-5.5 379) BLOOD GAS, [id number] 08:47:00 Test Item Value Reference Range Interpretation Comments PH ARTERIAL (BEAKER) (test code = 7.47 7.35-7.45 H 383) PCO2 ARTERIAL (BEAKER) (test code 35 mmHg 35-45 = 384) PO2 ARTERIAL (BEAKER) (test code = 372 mmHg 80-90 H 385) O2 SATURATION ARTERIAL (BEAKER) 99.8 % 96.0-97.0 H (test code = 386) HCO3 ARTERIAL (BEAKER) (test code 25 mmol/L 21-29 = 388) BASE EXCESS ARTERIAL (BEAKER) 1.4 mmol/L -2.0-3.0 (test code = 387) PATIENT TEMPERATURE (BEAKER) (test 36.0 C code = 1818) FIO2 (BEAKER) (test code = 1819) 100.0 % GLUCOSE-STAT [id number] 08:47:00 Test Item Value Reference Range Interpretation Comments GLUCOSE RANDOM (BEAKER) (test code 135 mg/dL 70-110 H = 652) HGB/HCT (H&H) - STAT [id number] 08:47:00 Test Item Value Reference Range Interpretation Comments HEMOGLOBIN (BEAKER) (test code = 12.4 g/dL 13.0-16.8 L 410) HEMATOCRIT (BEAKER) (test code = 36.0 % 40.0-50.0 L 411) SODIUM NA-STAT [id number] 08:46:00 Test Item Value Reference Range Interpretation Comments SODIUM (BEAKER) (test code = 381) 136 meq/L 135-148 POTASSIUM-STAT [id number] 08:46:00 Test Item Value Reference Range Interpretation Comments POTASSIUM (BEAKER) (test code = 3.6 meq/L 3.6-5.5 379) CALCIUM, [id number] 08:46:00 Test Item Value Reference Range Interpretation Comments CALCIUM IONIZED (BEAKER) (test 1.17 mmol/L 1.12-1.27 code = 698) PH, BLOOD (BEAKER) (test code = 7.45 1810) HEPATIC FUNCTION [id number] 05:56:00 Test Item Value Reference Range Interpretation Comments TOTAL PROTEIN (BEAKER) (test code = 7.0 gm/dL 6.0-8.3 770) ALBUMIN (BEAKER) (test code = 1145) 3.9 g/dL 3.5-5.0 BILIRUBIN TOTAL (BEAKER) (test code 0.5 mg/dL 0.2-1.2 = 377) BILIRUBIN DIRECT (BEAKER) (test 0.2 mg/dL 0.1-0.5 code = 706) ALKALINE PHOSPHATASE (BEAKER) (test 80 U/L 40-150 code = 346) AST (SGOT) (BEAKER) (test code = 37 U/L 5-34 H 353) ALT (SGPT) (BEAKER) (test code = 14 U/L 6-55 347) BASIC METABOLIC [id number] 05:56:00 Test Item Value Reference Range Interpretation Comments SODIUM (BEAKER) 138 meq/L 136-145 (test code = 381) POTASSIUM (BEAKER) 4.0 meq/L 3.5-5.1 (test code = 379) CHLORIDE (BEAKER) 103 meq/L 98-107 (test code = 382) CO2 (BEAKER) (test 26 meq/L 22-29 code = 355) BLOOD UREA NITROGEN 13 mg/dL 7-21 (BEAKER) (test code = 354) CREATININE (BEAKER) 0.79 mg/dL 0.57-1.25 (test code = 358) GLUCOSE RANDOM 103 mg/dL 70-105 (BEAKER) (test code = 652) CALCIUM (BEAKER) 9.6 mg/dL 8.4-10.2 (test code = 697) EGFR (BEAKER) (test 96 mL/min/1.73 ESTIMA AIMEE GFR IS code = 1092) sq m NOT ACCURATE CREATININE CLEARANCE IN PREDICTING GLOMERULAR FILTRATION RATE . ESTIMATED GFR I S NOT APPLICABLE FOR DIALYSIS PATIEN TS. B-TYPE NATRIURETIC FACTOR (BNP)2018-10-31 05:39:00 Test Item Value Reference Range Interpretation Comments B-TYPE NATRIURETIC PEPTIDE (BEAKER) 365 pg/mL 0-100 H (test code = 700) PROTHROMBIN [id number] 05:38:00 Test Item Value Reference Range Interpretation Comments PROTIME (BEAKER) (test code = 14.4 seconds 11.9-14.2 H 759) INR (BEAKER) (test code = 370) 1.2 <=5.9 Effective 08/06/2018: PT Reference Range ChangeNew: 11.9-14.2 Previous: 11.7- 14.7RECOMMENDED COUMADIN/WARFARIN INR THERAPY RANGESSTANDARD DOSE: 2.0-3.0 Includes: PROPHYLAXIS for venous thrombosis, systemic embolization; TREATMENT for venous thrombosis and/or pulmonary embolus.HIGH RISK: Target INR is2.5-3.5 for patients wiht mechanical heart valves.CBC (HEMOGRAM ONLY)2018-10-31 05:30:00 Test Item Value Reference Range Interpretation Comments WHITE BLOOD CELL COUNT (BEAKER) 12.0 K/ L 3.5-10.5 H (test code = 775) RED BLOOD CELL COUNT (BEAKER) 4.77 M/ L 4.63-6.08 (test code = 761) HEMOGLOBIN (BEAKER) (test code = 12.4 GM/DL 13.7-17.5 L 410) HEMATOCRIT (BEAKER) (test code = 40.5 % 40.1-51.0 411) MEAN CORPUSCULAR VOLUME (BEAKER) 84.9 fL 79.0-92.2 (test code = 753) MEAN CORPUSCULAR HEMOGLOBIN 26.0 pg 25.7-32.2 (BEAKER) (test code = 751) MEAN CORPUSCULAR HEMOGLOBIN CONC 30.6 GM/DL 32.3-36.5 L (BEAKER) (test code = 752) RED CELL DISTRIBUTION WIDTH 15.8 % 11.6-14.4 H (BEAKER) (test code = 412) PLATELET COUNT (BEAKER) (test 240 K/CU MM 150-450 code = 756) MEAN PLATELET VOLUME (BEAKER) 11.2 fL 9.4-12.4 (test code = 754) NUCLEATED RED BLOOD CELLS 0 /100 WBC 0-0 (BEAKER) (test code = 413) RAD, CHEST, 1 VIEW, NON [id number] 01:04:00Reason for exam:->chest painShould this be performed [...] are grossly unremarkable. Signed: [facility] Verified Date/Time: 10/31/2018 01:04:37 TROPONIN [id number] 00:04:00 Test Item Value Reference Range Interpretation Comments TROPONIN I (BEAKER) (test code = 15.54 ng/mL 0.00-0.03 397) Troponin I (TnI) levels must be interpreted [...] disease, and persistent tachyarrhythmia.B-TYPE NATRIURETIC FACTOR (BNP) 2018-10-30 23:46:00 Test Item Value Reference Range Interpretation Comments B-TYPE NATRIURETIC PEPTIDE (BEAKER) 472 pg/mL 0-100 H (test code = 700) [id number] 23:40:00 Test Item Value Reference Range Interpretation Comments PROTIME (BEAKER) (test code = 14.2 seconds 11.9-14.2 759) INR (BEAKER) (test code = 370) 1.2 <=5.9 PARTIAL THROMBOPLASTIN TIME 34.1 seconds 22.5-36.0 (BEAKER) (test code = 760) Effective 08/06/2018: PT Reference Range ChangeNew: 11.9-14.2 Previous: 11.7- 14.7RECOMMENDED COUMADIN/WARFARIN INR THERAPY RANGESSTANDARD DOSE: 2.0-3.0 Includes: PROPHYLAXIS for venous thrombosis, systemic embolization; TREATMENT for venous thrombosis and/or pulmonary embolus.HIGH RISK: Target INR is2.5-3.5 for patients wiht mechanical heart valves.LIPID [id number] 23:38:00 Test Item Value Reference Range Interpretation Comments TRIGLYCERIDES (BEAKER) (test code = 168 mg/dL 540) CHOLESTEROL (BEAKER) (test code = 222 mg/dL 631) HDL CHOLESTEROL (BEAKER) (test code 41 mg/dL = 976) LDL CHOLESTEROL CALCULATED (BEAKER) 147 mg/dL (test code = 633) Triglyceride Reference Range: Low Risk <150 Borderline 150-199 High Risk 200-499 Very High Risk >=500Cholesterol Reference Range: Low Risk <200 Borderline 200-239 High Risk >240HDL Cholesterol Reference Range: Low Risk >=60 High Risk <40LDL Cholesterol Reference Range: Optimal <100 Near Optimal 100-129 Borderline 130-159 High 160-189 Very High >=190COMPREHENSIVE METABOLIC [id number] 23:38:00 Test Item Value Reference Range Interpretation Comments TOTAL PROTEIN 6.9 gm/dL 6.0-8.3 (BEAKER) (test code = 770) ALBUMIN (BEAKER) 3.8 g/dL 3.5-5.0 (test code = 1145) ALKALINE PHOSPHATASE 76 U/L 40-150 (BEAKER) (test code = 346) BILIRUBIN TOTAL 0.4 mg/dL 0.2-1.2 (BEAKER) (test code = 377) SODIUM (BEAKER) (test 137 meq/L 136-145 code = 381) POTASSIUM (BEAKER) 3.9 meq/L 3.5-5.1 (test code = 379) CHLORIDE (BEAKER) 102 meq/L 98-107 (test code = 382) CO2 (BEAKER) (test 27 meq/L 22-29 code = 355) BLOOD UREA NITROGEN 14 mg/dL 7-21 (BEAKER) (test code = 354) CREATININE (BEAKER) 0.81 mg/dL 0.57-1.25 (test code = 358) GLUCOSE RANDOM 99 mg/dL 70-105 (BEAKER) (test code = 652) CALCIUM (BEAKER) 9.6 mg/dL 8.4-10.2 (test code = 697) AST (SGOT) (BEAKER) 41 U/L 5-34 H (test code = 353) ALT (SGPT) (BEAKER) 14 U/L 6-55 (test code = 347) EGFR (BEAKER) (test 93 mL/min/1.73 ESTIMA AIMEE GFR IS code = 1092) sq m NOT ACCURATE CREATININE CLEARANCE IN PREDICTING GLOMERULAR FILTRATION RATE . ESTIMATED GFR I S NOT APPLICABLE FOR DIALYSIS PATIEN TS. CBC W/PLT COUNT & AUTO [id number] 23:24:00 Test Item Value Reference Range Interpretation Comments WHITE BLOOD CELL COUNT (BEAKER) 11.5 K/ L 3.5-10.5 H (test code = 775) RED BLOOD CELL COUNT (BEAKER) 4.65 M/ L 4.63-6.08 (test code = 761) HEMOGLOBIN (BEAKER) (test code = 12.1 GM/DL 13.7-17.5 L 410) HEMATOCRIT (BEAKER) (test code = 39.7 % 40.1-51.0 L 411) MEAN CORPUSCULAR VOLUME (BEAKER) 85.4 fL 79.0-92.2 (test code = 753) MEAN CORPUSCULAR HEMOGLOBIN 26.0 pg 25.7-32.2 (BEAKER) (test code = 751) MEAN CORPUSCULAR HEMOGLOBIN CONC 30.5 GM/DL 32.3-36.5 L (BEAKER) (test code = 752) RED CELL DISTRIBUTION WIDTH 15.7 % 11.6-14.4 H (BEAKER) (test code = 412) PLATELET COUNT (BEAKER) (test 247 K/CU MM 150-450 code = 756) MEAN PLATELET VOLUME (BEAKER) 10.6 fL 9.4-12.4 (test code = 754) NUCLEATED RED BLOOD CELLS 0 /100 WBC 0-0 (BEAKER) (test code = 413) NEUTROPHILS RELATIVE PERCENT 73 % (BEAKER) (test code = 429) LYMPHOCYTES RELATIVE PERCENT 15 % (BEAKER) (test code = 430) MONOCYTES RELATIVE PERCENT 9 % (BEAKER) (test code = 431) EOSINOPHILS RELATIVE PERCENT 1 % (BEAKER) (test code = 432) BASOPHILS RELATIVE PERCENT 1 % (BEAKER) (test code = 437) NEUTROPHILS ABSOLUTE COUNT 8.40 K/ L 1.78-5.38 H (BEAKER) (test code = 670) LYMPHOCYTES ABSOLUTE COUNT 1.73 K/ L 1.32-3.57 (BEAKER) (test code = 414) MONOCYTES ABSOLUTE COUNT (BEAKER) 1.05 K/ L 0.30-0.82 H (test code = 415) EOSINOPHILS ABSOLUTE COUNT 0.14 K/ L 0.04-0.54 (BEAKER) (test code = 416) BASOPHILS ABSOLUTE COUNT (BEAKER) 0.09 K/ L 0.01-0.08 H (test code = 417) IMMATURE GRANULOCYTES-RELATIVE 0 % 0-1 PERCENT (BEAKER) (test code = 2801)
[2020-03-27 10:41] LABS: Protime INR 1.21
[2020-03-27 10:52] LABS: Absolute Lymphocytes (CBC) 2.4 K/uL (0.7-4.9); Basophils % 0.9 % (0-1.3); Hematocrit 51.8 % (39.6-49.0); MPV 9.5 fL (7.6-11.3); RBC Red Blood Cell Count 6.12 M/uL (4.33-5.43)
[2020-03-27 11:00] LABS: Albumin 3.7 g/dL (3.4-5.0); Bilirubin Direct 1.1 mg/dL (0-0.2); Bilirubin Total 1.8 mg/dL (0.2-1.0); Protein, Total 7.3 g/dL (6.4-8.2)
[2020-03-27 11:01] LABS: Magnesium 2.4 mg/dL (1.8-2.4); Potassium 4.8 mmol/L (3.5-5.1)
[2020-03-27] MEDS ORDERED: PANTOPRAZOLE 40 MG INJ ONE (11:26)
--- NOTE | 2020-03-27 11:37 | RAD REPORT ---
EXAM DESCRIPTION: RAD - Chest Single View - 03/27/2020 11:04 am CLINICAL HISTORY: CHEST PAIN, epigastric pain COMPARISON: March 25 TECHNIQUE: AP portable chest image was obtained 03/27/2020 11:04 am . FINDINGS: Lung volumes are normal. Interstitial opacification is present increased slightly over tamar or imaging. Left base pleural and parenchymal opacification are present. Left hemidiaphragm is obscur ed in the costophrenic angle is blunted. CABG surgical changes are noted. Cardiac silhouette is prominent, mostly obscured on the left due to the pleural and parenchymal changes. Vasculature is mildly prominent. No measurable pleural effusion and no pneumothorax. No acute bony abnormality seen. No acute aortic findings suspected. IMPRESSION: Left base pleural effusion with infiltrate and/ or atelectasis new from March 25. Vasculature and interstitial markings are mildly prominent. Patient could have a concurrent mild fail ure or volume overload.
--- NOTE | 2020-03-27 12:46 | RAD REPORT ---
EXAM DESCRIPTION: CT - Abdomen Pelvis W Contrast - 03/27/2020 12:05 pm CLINICAL HISTORY: ABD PAIN, acute onset epigastric pain, history of CABG, hypertension, atrial fibri llation and cardiac valve replacement, history colon cancer 2016 COMPARISON: Chest Single View dated 03/27/2020; Chest Single View dated 03/25/2019 TECHNIQUE: Biphasic, helical CT imaging of the abdomen and pelvis was performed following 100 ml non -ionic IV contrast. No oral contrast. All CT scans are performed using dose optimization technique as appropriate and may include automated exposure control or mA/KV adjustment according to patient size. FINDINGS: Mild interstitial opacification in the right lung base is present and probably chronic. Sm all left pleural effusion is present at least partially loculated. Focal lung parenchymal opacificati on is present 5 cm in size that could be chronic atelectasis or infiltrate. This was not present on t March 2019 chest film. Cardiomegaly is present without pericardial effusion. Liver shows a mottled enhancement pattern without a focal liver parenchymal lesion. Portal vein enhan alivia normally. Mottled pattern may be due to decrease in cardiac function. No splenomegaly or focal sp lenic finding. No pancreatic abnormality. Gallbladder is only partially filled. The wall appears slightly thickened and edematous. Gallstones c an be occult. No biliary tree abnormality identified. Symmetric renal function is seen with no hydronephrosis or suspicious renal mass. No pyelonephritis o r acute parenchymal process. No bladder abnormalities. No adrenal abnormalities. No prostate gland or seminal vesicle acute finding. A very small hiatal hernia is present. Gastric wall thickening and edema are not identified. No duode nal ulceration or wall thickening seen on CT imaging. No dilated large or small bowel loop. Patient h as left-sided diverticulosis without diverticulitis findings. No acute colon finding seen. No appendi citis findings identifiable. No free air or pneumatosis. Trace amount of free fluid is seen adjacent to the dome of the liver and in the pelvis. No mass or bulky lymphadenopathy. No hernia defects identified. Disc and bone degenerative changes are present. No acute or destructive bone process seen. Arterial t ree calcifications are present. IMPRESSION: Patient has a small left pleural effusion that is at least partially loculated. A 5 cent imeter left lung base focal density could be chronic atelectasis or pneumonia given the epigastric pa in pattern. Malignant etiology for the left base finding is not excluded and finding warrants ongoing monitoring. Gallbladder wall thickening or edema evident, possibly artifact of mostly contracted state. No bilia ry tree abnormality. Follow-up sonography could be performed if the patient has clinical findings ashlie t might suggest cholecystitis. No acute GI process seen. No acute or emergent stomach or duodenum finding to explain epigastric pain . Trace amount of ascites without specific etiology.
--- NOTE | 2020-03-27 13:32 | EDPHYS ---
Physician Documentation [facility] Name: Aniceto Feldman Age: 75 yrs Sex: Male : 1945 Arrival Date: 03/27/2020 Time: 10:19 Bed 8 Private MD: ED Physician Mao Lorenzo HPI: 03/27 10:48 This 75 yrs old Male presents to ER via Ambulatory with complaints of ma2 epigastric pain. 10:48 The patient or guardian reports chest pain that is located primarily in the epigastric ma2 area. Onset: suddenly, 1 hour(s) ago. Associated signs and symptoms: Pertinent negatives: cough, dizziness, lower extremity pain, lightheadedness. Severity of pain: At its worst the pain was moderate in the emergency department the pain has resolved and did so just prior to arrival. Historical: - Allergies: 10:25 amlodipine; hb 10:25 Fentanyl; hb 10:25 nostigmine; hb 10:25 Procardia; hb 10:25 Vecuronium [place]; hb - Home Meds: 10:25 losartan Oral [Active]; thyroid -BRUSH WASHER [Active]; hb - PMHx: 10:25 colon cancer 07/2016 getting vitamin C IV infusions; Hypertension; Hypothyroidism; hb irregular heart beat; Myocardial infarction; Atrial Fib; - PSHx: 10:25 CABG; CARDIAC STENTS; HEART VALVE SX; hb - Immunization history:: Adult Immunizations up to date. - Social history:: Patient/guardian denies using alcohol, street drugs, The patient lives with family. ROS: 10:48 Constitutional: Negative for fever, chills, and weight loss. ma2 10:48 All other systems are negative. Exam: 10:48 Constitutional: This is a well developed, well nourished patient who is awake, alert, ma2 and in no acute distress. Chest/axilla: Normal chest wall appearance and motion. Nontender with no deformity. No lesions are appreciated. Cardiovascular: Regular rate and rhythm with a normal S1 and S2. No gallops, murmurs, or rubs. Normal PMI, no JVD. No pulse deficits. Respiratory: Lungs have equal breath sounds bilaterally, clear to auscultation and percussion. No rales, rhonchi or wheezes noted. No increased work of breathing, no retractions or nasal flaring. Abdomen/GI: Soft, non-tender, with normal bowel sounds. No distension or tympany. No guarding or rebound. No evidence of tenderness throughout. Skin: Warm, dry with normal turgor. Normal color with no rashes, no lesions, and no evidence of cellulitis. MS/ Extremity: Pulses equal, no cyanosis. Neurovascular intact. Full, normal range of motion. Neuro: Awake and alert, GCS 15, oriented to person, place, time, and situation. Cranial nerves II-XII grossly intact. Motor strength 5/5 in all extremities. Sensory grossly intact. Cerebellar exam normal. Normal gait. Vital Signs: 10:22 BP 198 / 90; Pulse 42; Resp 20; Temp 97.7; Pulse Ox 98% on R/A; Pain 3/10; hb 11:29 BP 130 / 66; Pulse 47; Resp 18; Pulse Ox 98% on R/A; em 12:31 BP 181 / 73; Pulse 43; Resp 16; Pulse Ox 97% on R/A; em 13:30 BP 186 / 76; Pulse 45; Resp 16; Pulse Ox 97% on R/A; em MDM: 10:23 Patient medically screened. ma2 10:48 Differential diagnosis: anxiety, chest wall pain, gastritis, gastroesophageal reflux ma2 disease (GERD). 10:53 ED course: patient denies chest pain completely, while in the er he had large amount of ma2 black stool and clotted blood that i observed and consistent with gi bleed, stool occult blood test guaiac is positive, he had hx of bleeding peptic ulcer in the past, drink alcohol once a week, not heavy drinker no liver problems . 13:27 Data reviewed: vital signs, nurses notes. Counseling: I had a detailed discussion with ma2 the patient and/or guardian regarding: the historical points, exam findings, and any diagnostic results supporting the discharge/admit diagnosis, the presence of at least one elevated blood pressure reading (>120/80) during this emergency department visit, the need for further work-up and treatment in the hospital, the need to transfer to another facility. ED course: patient has NSTEMI and upper active GI bleeding, i explained need for transfer for GI since we dont have gi here, he does not want to be transferred and would like ot go home AMA.. i explained risk of having mi unstable and uncontrolled gi bleed especially he is on asa and plavix and possible , he understands risk he will see gi and cardiology in 1 day and he will call 911 if symptoms recure. 03/27 10:23 Order name: Basic Metabolic Panel; Complete Time: 11:03 ky03/27 10:23 Order name: CBC with Diff; Complete Time: 11:02 ky03/27 10:23 Order name: LFT's; Complete Time: 11:03 03/27 10:23 Order name: Magnesium; Complete Time: 11:03 ky03/27 10:23 Order name: NT PRO-BNP; Complete Time: 11:03 03/27 10:23 Order name: PT-INR; Complete Time: 11:03/27 10:23 Order name: Troponin (emerg Dept Use Only); Complete Time: 11:03 ky03/27 10:23 Order name: XRAY Chest (1 view); Complete Time: 11:47 03/27 10:23 Order name: EKG; Complete Time: 10:24 ky03/27 10:23 Order name: Cardiac monitoring; Complete Time: 10:30 ky03/27 11:58 Order name: Abdomen ; Complete Time: 12:52 EDMS 03/27 10:23 Order name: EKG - Nurse/Tech; Complete Time: 10:30 03/27 10:23 Order name: IV Saline Lock; Complete Time: 10:30 ky03/27 10:23 Order name: Labs collected and sent; Complete Time: 10:30 ky03/27 10:23 Order name: O2 Per Protocol; Complete Time: 10:30 ky03/27 10:23 Order name: O2 Sat Monitoring; Complete Time: 10:30 ma Administered Medications: 11:19 Drug: Pantoprazole 80 mg Route: IVP; Site: right antecubital; em 12:00 Follow up: Response: No adverse reaction em Point of Care Testing: Guaiac: 10:46 Stool Guaiac: Positive; Stool Hemoccult Control: Pass; ph Disposition: 03/27/20 13:31 Patient has left against medical advice. Impression: Acute peptic ulcer, site unspecified, with hemorrhage, Non-ST elevation (NSTEMI) myocardial infarction. - Patients states they are going to Home. - Condition is Stable. - Discharge Instructions: Acute Coronary Syndrome, Gastrointestinal Bleeding. - Prescriptions for omeprazole 40 mg Oral capsule,delayed release(DR/EC) - take 1 capsule by ORAL route once daily before a meal; 30 capsule. Levaquin 500 mg Oral Tablet - take 1 tablet by ORAL route once daily for 7 days; 7 tablet. Follow up: Lion Gruber MD; When: Tomorrow; Reason: Continuance of care. Follow up: Cedrick Cary MD; When: Tomorrow; Reason: Continuance of care. - Problem is new. - Symptoms are unchanged. Signatures: Dispatcher [employer] EDMT Selvin Owens RN RN em Baxter, Heather, RN RN Mao Lorenzo MD MD ma2 Corrections: (The following items were deleted from the chart) 11:52 10:47 Abdomen Pelvis W Con+CT.RAD.BRZ ordered. EDMT EDMS 11:58 11:52 Abdomen ordered. [facility] EDMS 14:26 13:31 03/27/2020 13:31 Patients has left against medical advice. Impression: Acute em peptic ulcer, site unspecified, with hemorrhage; Non-ST elevation (NSTEMI) myocardial infarction. Patient states they are going to Home. Condition is Stable. Follow up: Lion Gruber; When: Tomorrow; Reason: Continuance of care. Follow up: Cedrick Cary; When: Tomorrow; Reason: Continuance of care. Problem is new. Symptoms are unchanged. ma2
--- NOTE | 2020-03-27 13:32 | ER ---
Nurse's Notes [facility] Name: Aniceto Feldman Age: 75 yrs Sex: Male : 1945 Arrival Date: 03/27/2020 Time: 10:19 Bed 8 Private MD: Diagnosis: Acute peptic ulcer, site unspecified, with hemorrhage;Non-ST elevation (NSTEMI) myocardial infarction Presentation: 03/27 10:22 Chief complaint: Sudden onset severe epigastric pain, nausea, and profuse sweating hb while at grocery store. Pain decreased upon arrival. Hx of IL w/stent placement, CABG, AFib, HTN, heart valve replacement. Coronavirus screen: At this time, the client does not indicate any symptoms associated with coronavirus-19. Ebola Screen: No symptoms or risks identified at this time. Initial Sepsis Screen: Does the patient meet any 2 criteria? No. Patient's initial sepsis screen is negative. Does the patient have a suspected source of infection? No. Patient's initial sepsis screen is negative. Risk Assessment: Do you want to hurt yourself or someone else? Patient reports no desire to harm self or others. Onset of symptoms was March 27, 2020. 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 - Social history:: Patient/guardian denies using alcohol, street drugs, The patient lives with family. Screenin:30 Abuse screen: Denies threats or abuse. Nutritional screening: No deficits noted. em Tuberculosis screening: No symptoms or risk factors identified. Fall Risk None identified. Assessment: 10:30 General: Appears in no apparent distress. comfortable, Behavior is calm, cooperative, em appropriate for age, Denies fever. Pain: Complains of pain in epigastric area Pain does not radiate. Pain currently is 3 out of 10 on a pain scale. Pain began suddenly. Neuro: Level of Consciousness is awake, alert, obeys commands, Oriented to person, place, time, situation, Appropriate for age. Cardiovascular: Reports diaphoresis, nausea, Capillary refill < 3 seconds Rhythm is atrial fibrillation. Respiratory: Airway is patent Respiratory effort is even, unlabored, Respiratory pattern is regular, symmetrical. GI: Patient currently denies nausea, vomiting. Derm: Skin is intact, is healthy with good turgor, Skin is pink, warm \T\ dry. Musculoskeletal: Capillary refill < 3 seconds, Range of motion: intact in all extremities. 11:31 Reassessment: Patient appears in no apparent distress at this time. Patient and/or em family updated on plan of care and expected duration. Pain level reassessed. Patient is alert, oriented x 3, equal unlabored respirations, skin warm/dry/pink. 12:39 Reassessment: Patient appears in no apparent distress at this time. Patient and/or em family updated on plan of care and expected duration. Pain level reassessed. Patient is alert, oriented x 3, equal unlabored respirations, skin warm/dry/pink. 13:30 Reassessment: pt states he will sign out and does not want to be admitted to the hospital, reports his elevated cardiac enzymes are due to stress, pt will sign AMA. Vital Signs: 10:22 BP 198 / 90; Pulse 42; Resp 20; Temp 97.7; Pulse Ox 98% on R/A; Pain 3/10; hb 11:29 BP 130 / 66; Pulse 47; Resp 18; Pulse Ox 98% on R/A; em 12:31 BP 181 / 73; Pulse 43; Resp 16; Pulse Ox 97% on R/A; em 13:30 BP 186 / 76; Pulse 45; Resp 16; Pulse Ox 97% on R/A; em ED Course: 10:19 Patient arrived in ED. ph 10:23 Mao Lorenzo MD is Attending Physician. ma2 10:24 Triage completed. hb 10:25 Arm band placed on. hb 10:25 Initial lab(s) drawn, by me, sent to lab. Inserted saline lock: 20 gauge in right em antecubital area, using aseptic technique. Blood collected. Patient maintains SpO2 saturation greater than 95% on room air. 10:30 Selvin Owens, RN is Primary Nurse. em 10:30 Patient has correct armband on for positive identification. Placed in gown. Bed in low em position. Call light in reach. Side rails up X2. 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 Pulse ox on. NIBP on. 11:03 XRAY Chest (1 view) In Process Unspecified. EDMS 12:05 Abdomen In Process Unspecified. EDMS 13:30 Lion Gruber MD is Referral Physician. ma2 13:30 Cedrick Cary MD is Referral Physician. ma2 14:25 No provider procedures requiring assistance completed. IV discontinued, intact, em bleeding controlled, No redness/swelling at site. Pressure dressing applied. Administered Medications: 11:19 Drug: Pantoprazole 80 mg Route: IVP; Site: right antecubital; em 12:00 Follow up: Response: No adverse reaction em Point of Care Testing: Guaiac: 10:46 Stool Guaiac: Positive; Stool Hemoccult Control: Pass; ph Outcome: 14:25 AMA AMA form signed em 14:25 Condition: stable 14:25 Instructed on the need for admit, Demonstrated understanding of instructions. 14:26 Patient left the ED. em Signatures: Dispatcher [employer] Selvin Waddell RN RN Raine Herrera RN RN Aileen Covington RN RN Mao Lorenzo MD MD fl2 Corrections: (The following items were deleted from the chart) 10:26 10:22 Chief complaint: Sudden onset severe epigastric pain, nausea, and profuse hb sweating while at grocery store. Pain decreased upon arrival. Hx of IL, heart valve replacement. hb
[2020-03-27 14:33] VITALS: TEMP 97.7
[2020-03-27 14:36] VITALS: O2SAT 97
[2020-03-27 14:38] VITALS: BP 186/76
== END 2020-03-27 14:26 | disposition left against medical advice (07) ==
LOC: ER 10:19
DX: I21.4 Non-ST elevation (NSTEMI) myocardial infarction (principal); K27.0 Acute peptic ulcer, site unspecified, with hemorrhage; I10 Essential (primary) hypertension; Z95.1 Presence of aortocoronary bypass graft; Z95.818 Presence of other cardiac implants and grafts; Z88.5 Allergy status to narcotic agent; Z88.8 Allergy status to other drugs, medicaments and biological substances
CPT/HCPCS: 93005; 85025; 80048; 36415; 83735; 85610; 80076; 84484; 83880; 74177; 71045; 96374; 99285; Q9967; C9113

== ENCOUNTER 2022-01-31 12:04 | Observation (INO) | payer OTHER ==
--- OUTSIDE RECORDS SUMMARY | 2022-01-31 12:09 | XMS REPORT | Continuity of Care Document ---
:1945 Author Organization [facility] t Address [address] [place] [address] Care Team Providers Name Role Phone NORY NGUYỄN Primary Care Physician UnavailSUSHANT Orr Attending Clinician Unavailable PATY ISAAC Attending Clinician Unavailable MD PATY ISAAC Attending Clinician Unavailable Sushant Hayes MD Attending Clinician Pob, Adc Lab Main Attending Clinician Unavailable Doctor Unassigned, [place] Attending Clinician Unavailable LUCINDA OWENS Attending Clinician Unavailable SUSHANT HAYES Admitting Clinician Unavailable FOZIA COSBY Admitting Clinician Unavailable MD FOZIA COSBY Admitting Clinician Unavailable LUCINDA OWENS Admitting Clinician Unavailable Payers Payer Name Policy Type Policy Number Effective Date Expiration Date Neelam alayna [employer]ETNA MEDICARE ADV [id number] 2020 00:00:00 MEDICARE PART A [id number] 2010 \\T\\ B 00:00:00 AETNA PPO II [id number] 2013 00:00:00 Problems Condition Condition Condition Status Onset Resolution Last Treating Co mments Source Name Details Category Date Date Treatment Clinician Date Complete Complete Disease Active Overview: [facility] heart heart 09-[address] block block 00:00: g of this Hospita 00 note l might be different from the original. Added automatic ally from request for surgery [id number] Aortic Aortic Disease Active [facility] Atrial Atrial Disease Active Overview: [facility] fibr[facility]ati fibrillati 10-[facility] on on 00:00: g of this Medical 00 note Center might be different from the original. Not on anticoagu lation Transient Transient Disease Active [facility] ischemic ischemic 10-31 [facility] attack attack 00:00: Medical 00 Center History of History of Disease Active Overview : [facility] anesthesia anesthesia 10-31 [facility] reaction reaction 00:00: g of this Med ical 00 note Center might be different from the original. 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 10-31kes 00:00: Medical 00 Center Acute on Acute on Disease Active [facility] chronic chronic 10-31 [facility] diastolic diastolic 00:00: [facility] mary congestive congestive 00 Ce nter heart heart failure failure Acute Acute Disease Active [facility] blood loss blood loss 10-31 Ananya kes anemia anemia 00:00: Medical 00 Center Encounter Encounter Disease Active [facility] for for 10-31 management management 00:00: Me dical of of 00 Center intra-aort intra-aort ic balloon ic balloon pump pump 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 Brooks 00 [facility] CAD CAD Disease Active [facility] (coronary (coronary 10-30 [facility] s artery artery 00:00: Medical disease) disease) 00 Center Allergies, Adverse Reactions, Alerts Allergy Allergy Status Severity Reaction(s) Onset Inactive Treating Comm ents Source Name Type Date Date Clinician Nifedipi Propensi Active Swelling 2021-0 Generaliz M ethodi ne ty to 7-[address] adverse 00:00: swelling Hospita reaction 00 l s to drug AMLODIPI Allergy Active 2019-[address] NE 8-22 [facility] 00:[facility]: Medical 00 Center FENTANYL Allergy Active 2019-[address] 8-22 [facility] 00:[facility]: Medical 00 Center NEOSTIGM Allergy Active 2019-[address] INE 8-22 [facility] 00:[facility]: Medical 00 Center NIFEDIPI Allergy Active 2019-[address] NE 8-22 [facility] 00:00: Medical 00 Center VECURONI Allergy Active 2019-[address] UM 8-22 [facility] 00:00: Medical 00 Center Amlodipi Propensi Active 2019-[address] ne ty to 8-22 [facility] adverse 00:00: Medical reaction 00 Center s Fentanyl Propensi Active 2019- [facility] ty to 8-22 [facility] adverse 00:00: Medical reaction 00 Center s Neostigm Propensi Active 2019-[address] ine ty to 8-22 [facility] adverse 00:00: Medical reaction 00 Center s Nifedipi Propensi Active 2019-[address] ne ty to 8-22 [facility] adverse 00:00: Medical reaction 00 Center s Vecuroni Propensi Active 2019-[address] um ty to 8-22 [facility] adverse 00:00: Medical reaction 00 Center s NO KNOWN Drug Active [facility] ALLERGIE [facility] [place] [facility] Family History Family Member Diagnosis Comments Start Date Stop Date Source Natural father Heart attack [facility] Natural sister Coronary artery [facility] Social History Social Habit Start Date Stop Date Quantity Comments Source Exposure to Not sure [facility] of SARS-CoV-2 [place] [facility] (event) Branch History SDOH [facility] Alcohol Binge Medical [facility] [facility] History SDOH [facility] Alcohol Comment Medical C enter Alcohol intake 2020-09-19 2020-09-19 Ex-drinker [facility] 00:00:00 00:00:00 (finding) History SDOH 2018-10-31 2018-10-[address] [facility] Alcohol Frequency 00:00:00 00:00:00 Medical Center History SDOH 2018-10-31 2018-10-[address] [facility] Alcohol Std 00:00:00 00:00:00 Medical Cente r Drinks Tobacco use and 2018-10-30 2018-10-[address] Ananya kes exposure 00:00:00 00:00:00 Medical Center Sex [birth year] [facility] 00:00:00 00:00:00 Smoking Status Start Date Stop Date Source Never smoker [facility] Medications Ordered Filled Start Stop Current Ordering Indication Dosage Frequency Signature Comments Components Source Medication Medication Date Date Medication? Clinician (SIG) Name Name amLODIPine Yes 5mg QD Take 5 mg Me thodi (NORVASC) 5 -[address] mg tablet 12:43: daily. Hospit a 17 l vitamin E Yes 1{tbl} QD Take 1 Meth nickie acetate 7-[address] (VITAMIN E 12:43: mouth Hospit a ORAL) 17 daily. l cholecalcif Yes 1{tbl} QD Take 1 Me thodi jessica, 7-[address] vitamin D3, 12:43: mouth Hospi ta (VITAMIN D3 17 daily. l ORAL) valsartan Yes 160mg QD Take 160 Met hodi (DIOVAN) 7-[address] 320 MG 12:43: mouth Hospita tablet 17 daily. l hydroCHLORO Yes 12.5mg QD Take 12.5 Methodi thiazide 7-[address] (HYDRODIURI 12:43: mouth Hospi ta L) 12.5 MG 17 daily. l tablet iopamidol 2020- No [id number] 100mL 100 mL, Univers (ISOVUE 07-22 05-14 Intravenou ity o f 370-500 mL) 18:45: 17:45 s, ONCE, 1 [place] injection 00 :00 dose, Fri Medic al 100 mL 07/22/20 at Branch 1345, Routine furosemide Yes 40mg Q.5D Take [address] (LASIX) 20 11-17 by mouth 2 Santi es MG tablet 11:06: (two) Medical 04 times Center daily . thyroid, Yes 60mg QD Take [address] pork, (JEWELRY SORTER 11-17 by mouth [facility]ukes THYROID) 60 10:52: daily. Medi mary mg Tab 23 Center irbesartan Yes 150mg Take 150 Un srinivasa (AVAPRO) 9-16 mg by ity of 150 mg 19:18: mouth [place] tablet 20 daily. Medical Branch amlodipine- Yes 1{capsu Take 1 Cap Univers benazepril 9-16 le} by mouth ity o f (LOTREL) 19:18: daily. [place] 5-10 mg per 20 Medical capsule Branch irbesartan Yes 150mg Take 150 Un srinivasa (AVAPRO) 9-16 mg by ity of 150 mg 19:18: mouth [place] tablet 20 daily. Medical Branch amlodipine- Yes 1{capsu Take 1 Cap Univers benazepril 9-16 le} by mouth ity o f (LOTREL) 19:18: daily. [place] 5-10 mg per 20 Medical capsule Branch irbesartan Yes 150mg Take 150 Un srinivasa (AVAPRO) 9-16 mg by ity of 150 mg 19:18: mouth [place] tablet 20 daily. Medical Branch amlodipine- Yes 1{capsu Take 1 Cap Univers benazepril 9-16 le} by mouth ity o f (LOTREL) 19:18: daily. [place] 5-10 mg per 20 Medical capsule Branch irbesartan Yes 150mg Take 150 Un srinivasa (AVAPRO) 9-16 mg by ity of 150 mg 19:18: mouth [place] tablet 20 daily. Medical Branch amlodipine- Yes 1{capsu Take 1 Cap Univers benazepril 9-16 le} by mouth ity o f (LOTREL) 19:18: daily. [place] 5-10 mg per 20 Medical capsule Branch irbesartan Yes 150mg Take 150 Un srinivasa (AVAPRO) 9-16 mg by ity of 150 mg 19:18: mouth [place] tablet 20 daily. Medical Branch amlodipine- Yes 1{capsu Take 1 Cap Univers benazepril 9-16 le} by mouth ity o f (LOTREL) 19:18: daily. [place] 5-10 mg per 20 Medical capsule Branch irbesartan Yes 150mg Take 150 Un srinivasa (AVAPRO) 9-16 mg by ity of 150 mg 19:18: mouth [place] tablet 20 daily. Medical Branch amlodipine- Yes 1{capsu Take 1 Cap Univers benazepril 9-16 le} by mouth ity o f (LOTREL) 19:18: daily. [place] 5-10 mg per 20 Medical capsule Branch irbesartan Yes 150mg Take 150 Un srinivasa (AVAPRO) 9-16 mg by ity of 150 mg 19:18: mouth [place] tablet 20 daily. Medical Branch amlodipine- Yes 1{capsu Take 1 Cap Univers benazepril 9-16 le} by mouth ity o f (LOTREL) 19:18: daily. [place] 5-10 mg per 20 Medical capsule Branch Immunizations Ordered Immunization Filled Immunization Date Status Commen ts Source Name Name Pneumococcal 2018-11-[address] [facility] Conjugate (Prevnar) 00:00:00 Medic al Center 13-Valent Procedures Procedure Date / Time Performed Performing Clinician Sourc e DEXA AXIAL (HIP AND 2020-08-29 14:51:45 Sushant Hayes [facility] [place] SP[facility] HB CREATININE BLOOD 2020-07-22 17:22:00 Sushant Hayes [facility] US ABDOMEN COMPLETE 2020-06-30 18:30:37 Sushant Hayes [facility] CONSENT/REFUSAL FOR 2020-06-30 17:58:09 Doctor Unassigned, No [facility] Name [facility] TREATMENT PHYSICIAN ORDERS 2020-06-27 05:01:00 Doctor Unassigned, No [facility] ASSIGNMENT OF BENEFITS 2020-04-01 19:48:21 Doctor Unassigned, No [facility] Plan of Care Planned Activity Planned Date Details Comments Source Future Scheduled 2022-01-24 HEPATITIS B VACCINES Met [facility] Test 02:52:55 (1 of 3 - 3-dose series) [code = HEPATITIS B VACCINES (1 of 3 - 3-dose series)] Future Scheduled 2022-01-24 COVID-19 VACCINE (#1) Me [facility] Test 02:52:55 [code = COVID-19 VACCINE (#1)] Future Scheduled 2022-01-24 Hepatitis C screening Me [facility] Test 02:52:55 (procedure) [code = 965241911] Future Scheduled 2022-01-24 SHINGLES [facility]ACCINES ([facility] 02:52:55 of 2) [code = SHINGLES VACCINES (1 of 2)] Future Scheduled 2022-01-24 65+ [facility]OC[facility] [facility] Test 02:52:55 VACCINE (2 - PPSV23 if available, else PCV20) [code = 65+ PNEUMOCOCCAL VACCINE (2 - PPSV23 if available, else PCV20)] Future Scheduled 2022-01-24 INFLUENZA VACCINE [facility] Test 02:52:55 [code = INFLUENZA VACCINE] Encounters Start End Encounter Admission Attending Care Care Encounter Source Date/Time Date/Time Type Type Clinicians Facility Department ID 2021-01-08 Outpatient R [facility] ARIEL [id number] Univers 04:51:09 SUSHANT Gibson [facility] [place] 2020-09-13 2020-09-16 Inpatient [facility] [id number] 75 [place] 00:00:00 00:00:00 PATY 985 Method i 2020-08-29 2020-08-29 [facility] [id number] Univers 09:12:50 23:59:00 Encounter eSushant 350.1.13.10 ity [facility] [id number] [facility] [id number] [facility] 800 Branch 2020-08-29 2020-08-29 Outpatient R [facility] [id number] Univers 00:00:00 00:00:00 SUSHANT Gibson f [facility] 2020-07-22 2020-07-22 [facility] [id number] Univers 12:05:04 23:59:00 Encounter eSushant 350.1.13.10 ity [facility] [id number] [facility] [id number] [facility] 801 Branch 2020-07-22 2020-07-22 Outpatient R [facility] [id number] Univers 00:00:00 00:00:00 SUSHANT Gibson f [facility] 2020-06-30 2020-06-30 [facility] [id number] Univers 12:58:14 23:59:00 Encounter duy Sushant Reardon [id number] [place] [id number] [facility] 806 Branch 2020-06-30 2020-06-30 Outpatient R [facility] [id number] Univers 00:00:00 00:00:00 Duy SUSHANT shanks alfred amos [facility] 2020-06-27 2020-06-27 Outpatient R [facility] [id number] Univers 10:00:00 10:00:00 SUSHANT Gibson dimitris o dandre [facility] 2020-06-27 2020-06-27 Orthopedically Impaired Teacher Mike, Adc Lab Main [facility] 1.2.8 40.114 [id number] Univers 09:21:31 09:36:31 Visit Sushant Hayes 350.1.1 3.10 [facility] [place] 4.2.7.2.686 [facility] s [facility] [id number] [address] 2020-06-27 2020-06-27 Orders Doctor WANDA [id number] Univers 00:00:00 00:00:00 Only Unassigned, SONI 350.1.13.10 ity of [place] [facility] 4.2.7.2.686 Nam as [id number] [facility] 009 Branch 2020-05-31 2020-05-31 Outpatient R [facility] [id number] Univers 13:15:00 13:15:00 Duy SUSHANT shanks alfred amos [facility] 2020-05-03 2020-05-03 Outpatient R [facility] [id number] Univers 00:00:00 00:00:00 Duy SUSHANT simon dandre [facility] 2020-04-01 2020-04-01 Orthopedically Impaired Teacher Mike, Adc Lab Main [facility] 1.2.8 40.114 [id number] Univers 13:57:40 14:12:40 Visit Sushant Hayes 350.1.1 3.10 it[facility] [place] 4.2.7.2.686 Vitor Koch [id number] Il dical [facility] [address] Building 2020-04-01 2020-04-01 Outpatient R [facility] [id number] Univers 14:00:00 14:00:00 SUSHANT Gibson ity o f [facility] 2020-04-01 2020-04-01 Orders Doctor WANDA [id number] Univers 00:00:00 00:00:00 Only Unassigned, SONI 350.1.13.10 ity of [place] [facility] [id number] Nam as [phone] [address] Results Test Description Test Time Test Comments Results Result Comments Source SARS-CoV-2 (COVID-19) RNA [Presence] in Respiratory sp ecimen by 2020-09-13 21:17:27 JOANNA with probe detection Test Item Value Reference Range Interpretation Comme nts SARS-CoV-2 (COVID-19) RNA [Presence] in Respiratory Not detected No t-Detected specimen by JOANNA with probe detection (test code = 49669-0) Whether patient is employed in a healthcare setting (test code = 31701-4) Whether the patient has symptoms related to condition of interest (test code = 05174-9) Patient was hospitalized because of this condition (test code = 46623-9) Whether the patient was admitted to intensive care unit (ICU) for condition of interest (test code = 29423-6) Whether patient resides in a congregate care setting (test code = 93810-1) CHARANJIT JOSEPH AXIAL (HIP AND SPINE)2020-08-29 15:41:50Osteopenia of the hip with increased risk for fracturesEXAM: Dual-energy X-ray absorptiometry. HISTORY: Loss of weight ? COMPARISON: None. TECHNIQUE and FINDINGS: Bone densitometry of the lumbar spine and right hip was performed. WHO-definitions: T-score normal: +/- 1 SD around the meanosteopenia: >1 to 2.4 SD below the meanosteoporosis: >2.5 SD belowthe meanFracture risk doubles for each 1.5 SD below the mean. FINDINGS: 1. Lumbar Spine L1- L4: The calculated total T-score is ?1.0, and the Z-score is 0.9, which isnormal.The total bone mineral density is calculated at 1.360 g/cm2. This puts the patient at no increased risk for compression fractures. 2. Right Hip:The calculated T-score at the femoral neck is -0.2, and the Z-score is 0.7,normal.The calculated total T-score is -1.0, and the Z-score is -0.6,which isosteopenia. The total bone mineral density is calculated at 0.955 g/cm2. There is increased risk for femoral neck fractures. [facility], Radiant Results Inft User - 08/29/2020 10:42 AM CDT EXAM: Dual-energy X-ray absorptiometry.HISTORY: Loss of weight COMPARISON: None.TECHNIQUE and FINDINGS:Bone densitometry of the lumbar spine and right hip was performed. WHO-definitions: T- scorenormal: +/- 1 SDaround the meanosteopenia: >1 to 2.4 SD below the meanosteoporosis: >2.5 SD below the meanFracture risk doubles for each 1.5 SD below the mean. FINDINGS:1. Lumbar Spine L1-L4: The calculated total T-score is 1.0, and the Z-score is 0.9, which isnormal.The total bone mineral density is calculated at 1.360 g/cm2. This puts the patient at no increased risk for compression fractures. 2. Right Hip:The calculated T-score at the femoral neck is -0.2, and theZ-score is 0.7,normal.The calculated total T-score is -1.0, and the Z-score is -0.6, which isosteopenia. The total bone mineral density is calculated at 0.955 g/cm2. There is increased risk for femoralneck fractures.IMPRESSIONOsteopenia of the hip with increased risk for fracturesUnWise Health Surgical Hospital at ParkwayPOCT [id number] 20:11:13 Test Item Value Reference Range Interpretation Comments POCT Creatinine (test code = 1.0 mg/dL 0.6-1.3 [id number]) Lab Interpretation (test code = Normal 99130-0) [facility] [id number] 18:33:50HISTORY: Melena. TECHNIQUE: Upper abdominal organs were evaluated in multiple planes withthe patientin multiple different positions, without and with colorimaging. FINDINGS: Comparison has been made with previous ultrasound study of04/30/2020. Liver is enlarged, 18.9 cm, spleen is 11.8 x 4.9 cm, rightkidney is 11.9 x5.6 x 4.6 cm and left kidney is 12.4 x 5.6 x 5.2 cm in size. 3 mmcalcification notedin the dorsal cortex of the upper pole of right kidney.Cortex of both kidneys range between 16 mm and 14 mm. No hydronephrosis oraortic aneurysm detected. Visualized portions of the pancreas appearnormal. Hepatic and portal venous system appear patent, with hepatopetalportal flow noted. Gallbladder appears to be slightly contracted and show diffuse thickeningof the mane. No gallstones detected. Common hepatic duct is 2.6 mm. CONCLUSIONS:1. Enlarged liver without focal liver lesions. Liver size remains unchangedsince May 01 study but new finding of small fluid noted surroundingthe subdiaphragmatic surface of right lobe of the liver and there is asmall left pleural effusion.2. 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 [facility], Radiant Results Inft User - 06/30/2020 1:35 PM CDTHISTORY: Melena.TECHNIQUE: Upper abdominal organs were evaluated in multiple planes withthe patient in multiple different positions, without and with colorimaging.FINDINGS: Comparison has been made with previous ultrasound study of04/30/2020.Liver is enlarged, 18.9 cm, spleen is 11.8 x 4.9 cm, right kidney is 11.9 x5.6 x 4.6 cm and left kidney is 12.4 x 5.6 x 5.2 cm in size. 3mmcalcification noted in the dorsal cortex of the upper pole of right kidney.Cortex of both kidneys range between 16 mm and 14 mm. No hydronephrosis oraortic aneurysm detected. Visualized portions of the pancreas appearnormal. Hepatic and portal venous system appear patent, with hepatopetalportal flownoted.Gallbladder appears to be slightly contracted and show diffuse thickeningof the mane. No gallstones detected. Common hepatic duct is 2.6 mm.CONCLUSIONS:1. Enlarged liver without focal liver lesions. Liver size remains unchangedsince May 01 study but new finding of small fluid noted surroundingthe subdiaphragmatic surface of right lobe of the liver and there is asmall left pleural effusion.2. 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 CenterTISE [id number] 12:04:00Surgical Pathology Report Case: [id number] Authorizing Provider: Yuan Whittaker, Collected:10/31/2018 Nadeem WU Ordering Location: [facility] Received: 10/31/2018 1430 PERIOPERATIVE SERVICES Pathologist: Chadwick Avery MD Specimen: Aortic Valve, Aortic valve HEART, AORTIC VALVE, VALVULECTOMY:THREE LEAFLETS WITH NODULAR CALCIFIC ATHEROSCLEROTIC THICKENING Signing Pathologist Direct Phone Line: [phone] signed by Chadwick Avery MD on 11/07/2018 at 12:04 [id number]; [id number] artery disease with angina pectoris A. Aortic valve Part A. Received in formalin labeled with the patient's name, medical record number and "aortic valve" are three buckley-white soft tissue fragments consistent with aortic leaflets that measure 2.5 x 2.2 x 0.4 cm in aggregate. The leaflets displ ay calcifications. No vegetations are identified. The specimen is serially sectioned, and inside outside sales representative sections are submitted in cassette A1 following light decalcification. /isaac PERFORMEDRAD, CHEST, 1 VIEW, NON [id number] 07:58:00Reason for exam:->SOBShould this be performed at the bedside?->Yes FINAL REPORT RAD, CHEST, 1 VIEW, NON DEPT INDICATION: SOB COMPARISON: November 03, 2018 FINDINGS: Portable frontal view of the chest. IMPRESSION: Limited by underpenetration.Support Lines: None. Lungs and pleura: Basilar subsegmental atelectasis. Small left effusion. No pneumothorax.Heart and mediastinum: Stable contours. Stable surgical changes.Additional findings: None. Signed: JR Mcdonnell Robert MDReport Verified Date/Time: 11/06/2018 07:58:38 Reading Location: [facility] Radiology Reading Room [id number] 07:12:00 Test Item Value Reference Range Interpretation Comments MAGNESIUM (BEAKER) (test code = 2.3 mg/dL 1.6-2.6 627) BASIC METABOLIC [id number] 07:12:00 Test Item Value Reference Range Interpretation [...] PATIEN TS. CBC W/PLT COUNT & AUTO [id number] 06:22:00 Test Item Value Reference Range Interpretation [...] = 2801) CBC W/PLT COUNT & AUTO [id number] 10:40:00 Test Item Value Reference Range Interpretation [...] = 3438) Received comment: User comments: Slide comments:[id number] 04:40:00 Test Item Value Reference Range Interpretation Comments MAGNESIUM (BEAKER) (test code = 2.1 mg/dL 1.6-2.6 627) BASIC METABOLIC [id number] 04:40:00 Test Item Value Reference Range Interpretation [...] PATIEN TS. CBC W/PLT COUNT & AUTO [id number] 07:47:00 Test Item Value Reference Range Interpretation [...] = 3438) Received comment: User comments: Slide comments:[id number] 05:14:00 Test Item Value Reference Range Interpretation Comments PHOSPHORUS (BEAKER) (test code = 2.4 mg/dL 2.3-4.7 604) [id number] 05:14:00 Test Item Value Reference Range Interpretation Comments MAGNESIUM (BEAKER) (test code = 2.2 mg/dL 1.6-2.6 627) BASIC METABOLIC [id number] 05:14:00 Test Item Value Reference Range Interpretation [...] NOT APPLICABLE FOR DIALYSIS PATIEN TS. POCT-GLUCOSE [id number] 01:09:00 Test Item Value Reference Range Interpretation Comments POC-GLUCOSE METER 110 mg/dL 70-110 TESTED AT [place] [address] ([facility]) (test code = [place] [address]) [address] POCT-GLUCOSE [id number] 18:03:00 Test Item Value Reference Range Interpretation Comments POC-GLUCOSE METER 102 mg/dL 70-110 TESTED AT [place] [address] ([facility]) (test code = [place] 1538) [address] POCT-GLUCOSE [id number] 12:11:00 Test Item Value Reference Range Interpretation Comments POC-GLUCOSE METER 159 mg/dL 70-110 H TESTED AT [place] [address] ([facility]) (test code = SILVERIO Jarrell [place] 1538) [id number] 08:52:00 Test Item Value Reference Range Interpretation Comments ACTIVATED CLOTTING TIME 356 sec TEST ED AT [place] [address] ([facility]) (test code = S[place]IO Jarrell [place] [address]) [address] [id number] 08:52:00 Test Item Value Reference Range Interpretation Comments ACTIVATED CLOTTING TIME 131 sec TEST ED AT [place] [address] ([facility]) (test code = SILVERIO Jarrell [place] [address]) [address] [id number] 05:04:00 Test Item Value Reference Range Interpretation Comments MAGNESIUM (BEAKER) 2.3 mg/dL 1.6-2.6 Specimen slightly (test code = 627) hemolyzed [id number] 05:04:00 Test Item Value Reference Range Interpretation Comments PHOSPHORUS (BEAKER) 1.9 mg/dL 2.3-4.7 L Specimen slightly (test code = 604) hemolyzed BASIC METABOLIC [id number] 05:04:00 Test Item Value Reference Range Interpretation [...] 697) EGFR (BEAKER) (test 93 mL/min/1.73 ESTIMA IAMEE GFR IS code = 1092) sq m [...] CELLS (BEAKER) (test code = 413) CALCIUM, [id number] 04:27:00 Test Item Value Reference Range Interpretation Comments CALCIUM IONIZED (BEAKER) (test 1.21 mmol/L 1.12-1.27 code = 698) PH, BLOOD (BEAKER) (test code = 7.44 1810) RAD, CHEST, 1 VIEW, NON [id number] 04:27:00while patient is intubated or has chest [...] De La Paz Verified Date/Time: 11/03/2018 04:27:49 POCT-GLUCOSE METER 2018-11-02 23:42:00 Test Item Value Reference Range Interpretation Comments POC-GLUCOSE METER 117 mg/dL 70-110 H TESTED AT [place] [address] ([facility]) (test code = [facility] 1538) [address] HEMOGLOBIN AND [id number] 17:59:00 Test Item Value Reference Range Interpretation Comments HEMOGLOBIN ([facility]) (test code = 8.4 GM/DL 13.7-17.5 L 410) HEMATOCRIT ([facility]) (test code = 27.3 % 40.1-51.0 L 411) POCT-GLUCOSE [id number] 17:50:00 Test Item Value Reference Range Interpretation Comments POC-GLUCOSE METER 184 mg/dL 70-110 H TESTED AT [place] [address] ([facility]) (test code = SILVERIO Jarrell [facility] 1538) [address] POCT-GLUCOSE [id number] 12:27:00 Test Item Value Reference Range Interpretation Comments POC-GLUCOSE METER 138 mg/dL 70-110 H TESTED AT [place] [address] ([facility]) (test code = [facility] Wesly [facility] 1538) [address] RAD, CHEST, 1 VIEW, NON [id number] 07:43:00while patient is intubated or has chest tubes.Reason for exam:->Status post CV SurgeryShould thisbe performed at the bedside?->YesFINAL REPORT Chest dated 11/02/2018 COMPARISON: 11/01/2018 Clinical Information: Status post CV Surgery Comment: Heart is enlarged. Pulmonary vasculature is indistinct. Subsegmental atelectasis is seen in the left upper and lower lobe. The right lung is clear. Previously noted [place]-Demetra catheter has been removed. Left chest tube and right IJ central venous catheter remain in place.No pneumothorax is seen. Signed: Fernando Thomas MDReport Verified Date/Time: 11/02/2018 07:43:56 Reading Location: [facility] B1 [id number] Ortho Consult Reading Room Electronically signed by: FERNANDO THOMAS M.D. on 07:43 AMTSH/FREE T4 IF [id number] 04:55:00 Test Item Value Reference Range Interpretation Comments THYROID STIMULATING HORMONE 1.19 uIU/mL 0.35-4.94 (BEAKER) (test code = 772) [id number] 04:35:00 Test Item Value Reference Range Interpretation Comments PHOSPHORUS (BEAKER) (test code = 2.6 mg/dL 2.3-4.7 604) [id number] 04:35:00 Test Item Value Reference Range Interpretation Comments MAGNESIUM (BEAKER) (test code = 2.3 mg/dL 1.6-2.6 627) BASIC METABOLIC [id number] 04:35:00 Test Item Value Reference Range Interpretation [...] APPLICABLE FOR DIALYSIS PATIEN TS. OXYGEN SATURATION, [id number] 04:31:00 Test Item Value Reference Range Interpretation [...] WBC 0-0 (BEAKER) (test code = 413) [id number] 23:42:00 Test Item Value Reference Range Interpretation Comments PHOSPHORUS (BEAKER) (test code = 3.0 mg/dL 2.3-4.7 604) [id number] 23:42:00 Test Item Value Reference Range Interpretation Comments MAGNESIUM (BEAKER) (test code = 2.2 mg/dL 1.6-2.6 627) BASIC METABOLIC [id number] 23:42:00 Test Item Value Reference Range Interpretation [...] 697) EGFR (BEAKER) (test 82 mL/min/1.73 ESTIMA IAMEE GFR IS code = 1092) sq m NOT ACCURATE CREATININE CLEARANCE IN PREDICTING GLOMERULAR FILTRATION RATE . ESTIMATED GFR I S NOT APPLICABLE FOR DIALYSIS PATIEN TS. POCT-GLUCOSE [id number] 23:31:00 Test Item Value Reference Range Interpretation Comments POC-GLUCOSE METER 147 mg/dL 70-110 H TESTED AT [facility] 6720 (BEAKER) (test code = [place] 1538) [address] CALCIUM, [id number] 23:04:00 Test Item Value Reference Range Interpretation Comments CALCIUM IONIZED (BEAKER) (test 1.20 mmol/L 1.12-1.27 code = 698) PH, BLOOD (BEAKER) (test code = 7.42 7910) VANCOMYCIN LEVEL, [id number] 21:11:00 Test Item Value Reference Range Interpretation Comments VANCOMYCIN TROUGH (BEAKER) (test 12.1 ug/mL 10.0-20.0 code = 522) DIGOXIN [id number] 08:07:00 Test Item Value Reference Range Interpretation Comments DIGOXIN LEVEL (BEAKER) (test code = 1.1 ng/mL 0.8-2.0 669) TSH/FREE T4 IF [id number] 08:07:00 Test Item Value Reference Range Interpretation Comments THYROID STIMULATING HORMONE 0.59 uIU/mL 0.35-4.94 (BEAKER) (test code = 772) RAD, CHEST, 1 VIEW, NON [id number] 07:32:00while patient is intubated or has chest tubes.Reason for exam:->Status post CV SurgeryShould thisbe performed at the bedside?->YesFINAL REPORT RAD, CHEST, 1 VIEW, NON DEPT CLINICAL INDICATION: Status post CV Surgery COMPARISON: Radiograph 10/31/2018 TECHNIQUE: AP view of the chest FINDINGS: Support devices are unchanged. Lung volumes remain low. No new focal consolidation, pleural effusion, or pneumothorax. Cardiomediastinal silhouette, nury, and pulmonary vasculature are unchanged. IMPRESSION:No significantinterval change. Signed: Tiago Juarez Verified Date/Time: 11/01/2018 07:32:02 PHOSPHORUS 2018-11-01 05:25:00 Test Item Value Reference Range Interpretation Comments PHOSPHORUS (BEAKER) (test code = 4.5 mg/dL 2.3-4.7 604) [id number] 05:25:00 Test Item Value Reference Range Interpretation Comments MAGNESIUM (BEAKER) (test code = 2.0 mg/dL 1.6-2.6 627) BASIC METABOLIC [id number] 05:25:00 Test Item Value Reference Range Interpretation [...] APPLICABLE FOR DIALYSIS PATIEN TS. OXYGEN SATURATION, [id number] 04:47:00 Test Item Value Reference Range Interpretation Comments O2 SATURATION (MEASURED) (BEAKER) 60.6 % (test code = 1455) LACTIC ACID, [id number] 04:45:00 Test Item Value Reference Range Interpretation [...] (BEAKER) (test code = 413) BLOOD GAS, [id number] 04:37:00 Test Item Value Reference Range Interpretation [...] 32.0 % RAD, CHEST, 1 VIEW, NON [id number] 23:12:00Reason for exam:->iabp repositionShould this be performed at the bedside?->YesFINAL REPORT RAD, CHEST, 1 VIEW, NON DEPT INDICATION: iabp reposition COMPARISON : Same day's exam FINDINGS: Portable frontal view of the chest. IMPRESSION: Support Lines: Interval repositioning of the intra-aortic balloon pump superior marker terminating 2.2 cm below the superior aspect of the aortic knob. Otherwise unchanged support apparatus. Lungs and pleura: Unchanged airspace and pleural opacities. No pneumothorax.Heart and mediastinum: Stable contours. Stable surgical changes.Additional findings: Minimal subcutaneous emphysema over the bilateral chest wall. Surgical clipsover the right neck. Signed: Noemy De La Paz [facility] Verified Date/Time: 10/31/2018 23:12:48 LACTIC ACID, ARTERIAL 2018-10-31 21:33:00 Test Item Value Reference Range Interpretation Comments LACTATE BLOOD ARTERIAL (2) 1.1 mmol/L 0.5-2.2 (BEAKER) (test code = 2874) RAD, CHEST, 1 VIEW, NON [id number] 21:22:00Reason for exam:->iabp placement/adjustmentShould this be performed at the bedside?->YesFINAL REPORT RAD, CHEST, 1 VIEW, NON DEPT INDICATION: iabp placement/adjustmentCOMPARISON: October 31, 2018 FINDINGS: Portable frontal view of the chest. IMPRESSION: Support Lines:IABP marker projects over the apex of the aortic arch, consider repositioning 2 cm caudally along the course of the descending aorta. Right IJ [place]-Demetra catheter tip projects over the main pulmonary [...] MDReport Verified Date/Time: 10/31/2018 21:22:46 BLOOD GAS, [id number] 21:14:00 Test Item Value Reference Range Interpretation [...] (test code = 1819) 32.0 % GLUCOSE-STAT [id number] 21:14:00 Test Item Value Reference Range Interpretation Comments GLUCOSE RANDOM (BEAKER) (test code 156 mg/dL 70-110 H = 652) HGB/HCT (H&H) - STAT [id number] 21:14:00 Test Item Value Reference Range Interpretation Comments HEMOGLOBIN (BEAKER) (test code = 8.7 g/dL 13.0-16.8 L 410) HEMATOCRIT (BEAKER) (test code = 26.0 % 40.0-50.0 L 411) CALCIUM, [id number] 21:14:00 Test Item Value Reference Range Interpretation Comments CALCIUM IONIZED (BEAKER) (test 1.19 mmol/L 1.12-1.27 code = 698) PH, BLOOD (BEAKER) (test code = 7.44 1810) SODIUM NA-STAT [id number] 21:13:00 Test Item Value Reference Range Interpretation Comments SODIUM (BEAKER) (test code = 381) 136 meq/L 135-148 POTASSIUM-STAT [id number] 21:13:00 Test Item Value Reference Range Interpretation Comments POTASSIUM (BEAKER) (test code = 4.4 meq/L 3.6-5.5 379) SODIUM NA-STAT [id number] 18:46:00 Test Item Value Reference Range Interpretation Comments SODIUM (BEAKER) (test code = 381) 136 meq/L 135-148 POTASSIUM-STAT [id number] 18:46:00 Test Item Value Reference Range Interpretation Comments POTASSIUM (BEAKER) (test code = 4.3 meq/L 3.6-5.5 379) HGB/HCT (H&H) - STAT [id number] 18:46:00 Test Item Value Reference Range Interpretation Comments HEMOGLOBIN (BEAKER) (test code = 8.8 g/dL 13.0-16.8 L 410) HEMATOCRIT (BEAKER) (test code = 26.0 % 40.0-50.0 L 411) GLUCOSE-STAT [id number] 18:46:00 Test Item Value Reference Range Interpretation Comments GLUCOSE RANDOM (BEAKER) (test code 167 mg/dL 70-110 H = 652) BLOOD GAS, [id number] 18:46:00 Test Item Value Reference Range Interpretation [...] 40.0 % CBC W/PLT COUNT & AUTO [id number] 16:50:00 Test Item Value Reference Range Interpretation [...] 3438) Received comment: User comments: Slide comments:POCT-GLUCOSE [id number] 16:40:00 Test Item Value Reference Range Interpretation Comments POC-GLUCOSE METER 158 mg/dL 70-110 H TESTED AT [facility] 6720 (BEAKER) (test code = SILVERIO Jarrell [facility] 1538) [address] [id number] 15:00:00 Test Item Value Reference Range Interpretation Comments PHOSPHORUS (BEAKER) (test code = 4.0 mg/dL 2.3-4.7 604) [id number] 15:00:00 Test Item Value Reference Range Interpretation Comments MAGNESIUM (BEAKER) (test code = 2.4 mg/dL 1.6-2.6 627) BASIC METABOLIC [id number] 15:00:00 Test Item Value Reference Range Interpretation [...] APPLICABLE FOR DIALYSIS PATIEN TS. HEPATIC FUNCTION [id number] 15:00:00 Test Item Value Reference Range Interpretation [...] = 14 U/L 6-55 347) LACTIC ACID, [id number] 14:55:00 Test Item Value Reference Range Interpretation Comments LACTATE BLOOD ARTERIAL (2) 1.4 mmol/L 0.5-2.2 (BEAKER) (test code = 9514) [id number] 14:54:00 Test Item Value Reference Range Interpretation [...] thrombosis and/or pulmonary embolus.HIGH RISK: Target INR is 2.5-3.5 for patients wiht mechanical heart valves.CBC (HEMOGRAM [...] 0-0 (BEAKER) (test code = 413) GLUCOSE-STAT [id number] 14:38:00 Test Item Value Reference Range Interpretation Comments GLUCOSE RANDOM (BEAKER) (test code 176 mg/dL 70-110 H = 652) HGB/HCT (H&H) - STAT [id number] 14:38:00 Test Item Value Reference Range Interpretation Comments HEMOGLOBIN (BEAKER) (test code = 9.9 g/dL 13.0-16.8 L 410) HEMATOCRIT (BEAKER) (test code = 29.0 % 40.0-50.0 L 411) SODIUM NA-STAT [id number] 14:37:00 Test Item Value Reference Range Interpretation Comments SODIUM (BEAKER) (test code = 381) 138 meq/L 135-148 POTASSIUM-STAT [id number] 14:37:00 Test Item Value Reference Range Interpretation Comments POTASSIUM (BEAKER) (test code = 4.1 meq/L 3.6-5.5 379) BLOOD GAS, [id number] 14:37:00 Test Item Value Reference Range Interpretation [...] code = 1819) 60.0 % OXYGEN SATURATION, [id number] 14:36:00 Test Item Value Reference Range Interpretation Comments O2 SATURATION (MEASURED) (BEAKER) 69.5 % (test code = 1455) CALCIUM, [id number] 14:36:00 Test Item Value Reference Range Interpretation Comments CALCIUM IONIZED (BEAKER) (test 1.27 mmol/L 1.12-1.27 code = 698) PH, BLOOD (BEAKER) (test code = 7.40 1810) RAD, CHEST, 1 VIEW, NON [id number] 14:31:00Reason for exam:->s/p intubationShould this be performed at the bedside?->YesFINAL REPORT RAD, CHEST, 1 VIEW, NON DEPT INDICATION: s/p intubation COMPARISON: Prior day's exam FINDINGS: Portable frontal view of the chest. IMPRESSION: Support Lines: Interval insertion of ET tube with tip 3 cm superior to the prashanth. IABP marker is at the aortic notch and positioning 2 cm toward the feet is recommended. [place]-Demetra catheter tip overlies the pulmonary outflow tract. NG tube descends below the diaphragm. Lungs and pleura: Unchanged airspace and pleural opacities. No pneumothorax.Heart and mediastinum: Stable contours. Additional findings: None. Signed: Medardo Serrato MDReport Verified Date/Time: 10/31/2018 14:31:36 Reading Location: [facility] Radiology Reading Room MBOELASTOGRAPH (TEG)2018-10-31 13:12:00 [...] 58.6 MM 55.0-65.0 (test code = 1413) [id number] 12:45:00 Test Item Value Reference Range Interpretation Comments ACTIVATED CLOTTING TIME 114 sec TEST ED AT [place] [address] ([facility]) (test code = FARRAHJAMES Jarrell [place] 441) [address] [id number] 12:45:00 Test Item Value Reference Range Interpretation Comments ACTIVATED CLOTTING TIME 450 sec TEST ED AT [place] [address] ([facility]) (test code = SILVERIO Jarrell [place] 441) [address] [id number] 12:45:00 Test Item Value Reference Range Interpretation Comments ACTIVATED CLOTTING TIME 483 sec TEST ED AT [place] [address] ([facility]) (test code = SILVERIO Jarrell [place] 441) [address] [id number] 12:45:00 Test Item Value Reference Range Interpretation Comments ACTIVATED CLOTTING TIME 444 sec TEST ED AT [place] [address] ([facility]) (test code = SILVERIO Jarrell [place] 441) [address] [id number] 12:45:00 Test Item Value Reference Range Interpretation Comments ACTIVATED CLOTTING TIME 433 sec TEST ED AT [place] [address] ([facility]) (test code = SILVERIO Jarrell [place] 441) [address] [id number] 12:45:00 Test Item Value Reference Range Interpretation Comments ACTIVATED CLOTTING TIME 417 sec TEST ED AT [place] [address] ([facility]) (test code = SILVERIO Jar[place] 441) [address] [id number] 12:36:00 Test Item Value Reference Range Interpretation Comments FIBRINOGEN LEVEL ([facility]) (test 281 mg/dl 225-434 code = 658) [id number] 12:36:00 Test Item Value Reference Range Interpretation Comments PARTIAL THROMBOPLASTIN TIME 31.9 seconds 22.5-36.0 ([facility]) (test code = 760) PROTHROMBIN [id number] 12:35:00 Test Item Value Reference Range Interpretation Comments PROTIME ([facility]) (test code = 21.9 seconds 11.9-14.2 H 759) INR ([facility]) (test code = 370) 2.0 <=5.9 Effective 08/06/2018: PT Reference Range ChangeNew: 11.9-14.2 Previous: 11.7- 14.7RECOMMENDED COUMADIN/WARFARIN INR THERAPY RANGESSTANDARD DOSE: 2.0-3.0 Includes: PROPHYLAXIS for venous thrombosis, systemic embolization; TREATMENT for venous thrombosis and/or pulmonary embolus.HIGH RISK: Target INR is 2.5-3.5 for patients wiht mechanical heart valves.PLATELET [id number] 12:27:00 Test Item Value Reference Range Interpretation Comments PLATELET COUNT (BEAKER) (test 162 K/CU MM 150-450 code = 756) BLOOD GAS, [id number] 12:24:00 Test Item Value Reference Range Interpretation [...] (test code = 1819) 100.0 % GLUCOSE-STAT [id number] 12:24:00 Test Item Value Reference Range Interpretation Comments GLUCOSE RANDOM (BEAKER) (test code 227 mg/dL 70-110 H = 652) HGB/HCT (H&H) - STAT [id number] 12:24:00 Test Item Value Reference Range Interpretation Comments HEMOGLOBIN (BEAKER) (test code = 10.7 g/dL 13.0-16.8 L 410) HEMATOCRIT (BEAKER) (test code = 31.0 % 40.0-50.0 L 411) CALCIUM, [id number] 12:24:00 Test Item Value Reference Range Interpretation Comments CALCIUM IONIZED (BEAKER) (test 1.36 mmol/L 1.12-1.27 H code = 698) PH, BLOOD (BEAKER) (test code = 7.36 1810) SODIUM NA-STAT [id number] 12:21:00 Test Item Value Reference Range Interpretation Comments SODIUM (BEAKER) (test code = 381) 137 meq/L 135-148 POTASSIUM-STAT [id number] 12:21:00 Test Item Value Reference Range Interpretation Comments POTASSIUM (BEAKER) (test code = 3.5 meq/L 3.6-5.5 L 379) PLATELET AGGREGATION: FUNCTION [id number] 11:59:00 Test Item Value Reference Range Interpretation Comments [id number] Jessica Ferguson MD (BEAKER) (test code = (electronic signature) 5989) PLATELET COUNT AGG 237 K/CU MM 150-450 (BEAKER) (test code = 2656) PLATELET RICH 242 k/cu mm 200-300 PLASMA(BEAKER) (test code = 2134) PLATELET FUNCTION Pattern of SCREEN INTERPRETATION disaggregation present (BEAKER) (test code = which may be 4652) characteristic of P2Y12 inhibitor effect. Correlation with medication history is required. Platelet Function Screen results may be falsely low with platelet counts<75,000/cu mm.POTASSIUM-STAT [id number] 11:00:00 Test Item Value Reference Range Interpretation Comments POTASSIUM (BEAKER) (test code = 5.5 meq/L 3.6-5.5 379) BLOOD GAS, [id number] 11:00:00 Test Item Value Reference Range Interpretation [...] code = 1819) 70.0 % SODIUM NA-STAT [id number] 11:00:00 Test Item Value Reference Range Interpretation Comments SODIUM (BEAKER) (test code = 381) 133 meq/L 135-148 L GLUCOSE-STAT [id number] 11:00:00 Test Item Value Reference Range Interpretation Comments GLUCOSE RANDOM (BEAKER) (test code 248 mg/dL 70-110 H = 652) HGB/HCT (H&H) - STAT [id number] 11:00:00 Test Item Value Reference Range Interpretation Comments HEMOGLOBIN (BEAKER) (test code = 8.7 g/dL 13.0-16.8 L 410) HEMATOCRIT (BEAKER) (test code = 26.0 % 40.0-50.0 L 411) SODIUM NA-STAT [id number] 10:36:00 Test Item Value Reference Range Interpretation Comments SODIUM (BEAKER) (test code = 381) 135 meq/L 135-148 POTASSIUM-STAT [id number] 10:36:00 Test Item Value Reference Range Interpretation Comments POTASSIUM (BEAKER) (test code = 5.2 meq/L 3.6-5.5 379) BLOOD GAS, [id number] 10:36:00 Test Item Value Reference Range Interpretation [...] (test code = 1819) 65.0 % GLUCOSE-STAT [id number] 10:36:00 Test Item Value Reference Range Interpretation Comments GLUCOSE RANDOM (BEAKER) (test code 248 mg/dL 70-110 H = 652) HGB/HCT (H&H) - STAT [id number] 10:36:00 Test Item Value Reference Range Interpretation Comments HEMOGLOBIN (BEAKER) (test code = 9.9 g/dL 13.0-16.8 L 410) HEMATOCRIT (BEAKER) (test code = 29.0 % 40.0-50.0 L 411) SODIUM NA-STAT [id number] 10:05:00 Test Item Value Reference Range Interpretation Comments SODIUM (BEAKER) (test code = 381) 136 meq/L 135-148 POTASSIUM-STAT [id number] 10:05:00 Test Item Value Reference Range Interpretation Comments POTASSIUM (BEAKER) (test code = 4.5 meq/L 3.6-5.5 379) BLOOD GAS, [id number] 10:05:00 Test Item Value Reference Range Interpretation [...] (test code = 1819) 65.0 % GLUCOSE-STAT [id number] 10:05:00 Test Item Value Reference Range Interpretation Comments GLUCOSE RANDOM (BEAKER) (test code 214 mg/dL 70-110 H = 652) HGB/HCT (H&H) - STAT [id number] 10:05:00 Test Item Value Reference Range Interpretation Comments HEMOGLOBIN (BEAKER) (test code = 9.5 g/dL 13.0-16.8 L 410) HEMATOCRIT (BEAKER) (test code = 28.0 % 40.0-50.0 L 411) BLOOD GAS, [id number] 09:41:00 Test Item Value Reference Range Interpretation [...] (test code = 1819) 70.0 % GLUCOSE-STAT [id number] 09:41:00 Test Item Value Reference Range Interpretation Comments GLUCOSE RANDOM (BEAKER) (test code 176 mg/dL 70-110 H = 652) HGB/HCT (H&H) - STAT [id number] 09:41:00 Test Item Value Reference Range Interpretation Comments HEMOGLOBIN (BEAKER) (test code = 10.0 g/dL 13.0-16.8 L 410) HEMATOCRIT (BEAKER) (test code = 29.0 % 40.0-50.0 L 411) SODIUM NA-STAT [id number] 09:40:00 Test Item Value Reference Range Interpretation Comments SODIUM (BEAKER) (test code = 381) 136 meq/L 135-148 POTASSIUM-STAT [id number] 09:40:00 Test Item Value Reference Range Interpretation Comments POTASSIUM (BEAKER) (test code = 3.9 meq/L 3.6-5.5 379) BLOOD GAS, [id number] 08:47:00 Test Item Value Reference Range Interpretation [...] (test code = 1819) 100.0 % GLUCOSE-STAT [id number] 08:47:00 Test Item Value Reference Range Interpretation Comments GLUCOSE RANDOM (BEAKER) (test code 135 mg/dL 70-110 H = 652) HGB/HCT (H&H) - STAT [id number] 08:47:00 Test Item Value Reference Range Interpretation Comments HEMOGLOBIN (BEAKER) (test code = 12.4 g/dL 13.0-16.8 L 410) HEMATOCRIT (BEAKER) (test code = 36.0 % 40.0-50.0 L 411) SODIUM NA-STAT [id number] 08:46:00 Test Item Value Reference Range Interpretation Comments SODIUM (BEAKER) (test code = 381) 136 meq/L 135-148 POTASSIUM-STAT [id number] 08:46:00 Test Item Value Reference Range Interpretation Comments POTASSIUM (BEAKER) (test code = 3.6 meq/L 3.6-5.5 379) CALCIUM, [id number] 08:46:00 Test Item Value Reference Range Interpretation Comments CALCIUM IONIZED (BEAKER) (test 1.17 mmol/L 1.12-1.27 code = 698) PH, BLOOD (BEAKER) (test code = 7.45 1810) HEPATIC FUNCTION [id number] 05:56:00 Test Item Value Reference Range Interpretation [...] = 14 U/L 6-55 347) BASIC METABOLIC [id number] 05:56:00 Test Item Value Reference Range Interpretation [...] 0-100 H (test code = 700) PROTHROMBIN [id number] 05:38:00 Test Item Value Reference Range Interpretation Comments PROTIME (BEAKER) (test code = 14.4 seconds 11.9-14.2 H 759) INR (BEAKER) (test code = 370) 1.2 <=5.9 Effective 08/06/2018: PT Reference Range ChangeNew: 11.9-14.2 Previous: 11.7- 14.7RECOMMENDED COUMADIN/WARFARIN INR THERAPY RANGESSTANDARD DOSE: 2.0-3.0 Includes: PROPHYLAXIS for venous thrombosis, systemic embolization; TREATMENT for venous thrombosis and/or pulmonary embolus.HIGH RISK: Target INR is 2.5-3.5 for patients wiht mechanical heart valves.CBC (HEMOGRAM [...] = 413) RAD, CHEST, 1 VIEW, NON [id number] 01:04:00Reason for exam:->chest painShould this be performed at the bedside?->YesFINAL REPORT Chest, 1 view. History: Chest pain Comparison: Plain radiograph the chest dated 10/30/2012.. IMPRESSION: The cardiomediastinal silhouette is within normal limits for a portable exam. Prominent pulmonary vasculature may be related to low lung volumes however pulmonary vascular congestion can have this appearance. No overt pulmonary edema. No lobar consolidation. Atherosclerotic calcifications of the thoracic aorta. No pleural effusion or pneumothorax. Osseous structures are grossly unremarkable. Signed: Noemy De La Paz Verified Date/Time: 10/31/2018 01:04:37 ONIN [id number] 00:04:00 Test Item Value Reference Range Interpretation [...] pg/mL 0-100 H (test code = 700) [id number] 23:40:00 Test Item Value Reference Range Interpretation [...] thrombosis and/or pulmonary embolus.HIGH RISK: Target INR is 2.5-3.5 for patients wiht mechanical heart valves.LIPID [id number] 23:38:00 Test Item Value Reference Range Interpretation Comments TRIGLYCERIDES (BEAKER) (test code = 168 mg/dL 540) CHOLESTEROL (BEAKER) (test code = 222 mg/dL 631) HDL CHOLESTEROL (BEAKER) (test code 41 mg/dL = 976) LDL CHOLESTEROL CALCULATED (BEAKER) 147 mg/dL (test code = 633) Triglyceride Reference Range: Low Risk <150 Borderline 150-199 High Risk 200- 499 Very High Risk >=500Cholesterol Reference Range: Low Risk <200 Borderline 200-239 High Risk >240HDL Cholesterol Reference Range: Low Risk >=60 High Risk <40LDL Cholesterol Reference Range: Optimal <100 Near Optimal 100-129 Borderline 130-159 High 160-189 Very High >=190COMPREHENSIVE METABOLIC [id number] 23:38:00 Test Item Value Reference Range Interpretation [...] PATIEN TS. CBC W/PLT COUNT & AUTO [id number] 23:24:00 Test Item Value Reference Range Interpretation [...] % 0-1 PERCENT (BEAKER) (test code = 7754)
[2022-01-31] MEDS ORDERED: NA CHLORIDE 0.9% 1,000 ML ONE (12:35)
[2022-01-31] MEDS ORDERED: ONDANSETRON 4 MG/2 ML VIAL ONE (12:35)
[2022-01-31 13:33] LABS: Absolute Lymphocytes (CBC) 0.2 K/uL (0.7-4.9); Hematocrit 38.5 % (39.6-49.0); Lymphocytes % 0.8 % (15.3-44.8); MCV 84.3 fL (80-100); MPV 9.1 fL (7.6-11.3); RBC Red Blood Cell Count 4.57 M/uL (4.33-5.43)
[2022-01-31 13:46] LABS: SARS-COV-2 RT PCR NEGATIVE (NEGATIVE)
[2022-01-31 13:53] LABS: Albumin 3.2 g/dL (3.4-5.0); Bilirubin Total 2.2 mg/dL (0.2-1.0); Potassium 4.1 mmol/L (3.5-5.1); Protein, Total 7.1 g/dL (6.4-8.2)
[2022-01-31 13:56] LABS: Troponin High Sensitivity 165.3 pg/mL (<58.9)
--- NOTE | 2022-01-31 14:58 | RAD REPORT ---
EXAM DESCRIPTION: RAD - Chest Single View - 01/31/2022 2:45 pm CLINICAL HISTORY: COUGH COMPARISON: Chest Single View dated 03/27/2020; Chest Single View dated 03/25/2019; Chest Single View dated 10/29/2018; Chest Single View dated 09/27/2016; Abdomen Pelvis W Contrast dated 01/31/2022 FINDINGS: Lines: Pacemaker. Lungs: Left basilar opacity. Pleural: Left pleural effusion. Cardiac: Mild cardiomegaly. Mediastinum: Within normal limits. Bones: No acute fractures. Sternotomy. Other: None IMPRESSION: Unchanged small left pleural effusion with underlying scarring/atelectasis.
--- NOTE | 2022-01-31 15:13 | RAD REPORT ---
EXAM DESCRIPTION: CTAbdomen Pelvis W Contrast - 01/31/2022 2:47 pm CLINICAL HISTORY: Nausea/vomiting COMPARISON: Abdomen Pelvis W Contrast dated 03/27/2020 TECHNIQUE: CT of the abdomen and pelvis was performed with IV contrast. All CT scans are performed using dose optimization technique as appropriate and may include automated exposure control or mA/KV adjustment according to patient size. FINDINGS: Lower chest: Chronic small left pleural effusion with underlying round atelectasis. Aortic valve calcifications. Multi-vessel coronary artery disease. Pacemaker. Cardiomegaly. Small hiatal he rnia Liver: No acute abnormality or suspicious lesions. Biliary: No biliary ductal dilatation. Stomach: No significant focal abnormality. Duodenum: No significant focal abnormality. Pancreas: No significant abnormality. Spleen: No significant abnormality. Adrenal: No suspicious lesions. Kidney/ureter: No hydronephrosis. No renal calculi. Retroperitoneum: No retroperitoneal adenopathy. Vascular: No aneurysm. Bowel: Nonspecific fluid-filled small bowel.. No bowel obstruction. Normal appendix. Peritoneum: No ascites or free air. Small fat containing umbilical hernia. Bladder: Grossly unremarkable. Reproductive: No adnexal masses. Bones: No acute fracture. Multilevel degenerative changes are present in the spine. Other: n/a IMPRESSION: No acute intra-abdominal or pelvic finding. Several incidental findings as noted above.
--- NOTE | 2022-01-31 15:43 | ER ---
Nurse's Notes [facility] Name: Aniceto Feldman Age: 77 yrs Sex: Male : 1945 Arrival Date: 01/31/2022 Time: 12:[address] Private MD: Diagnosis: Nausea with vomiting, unspecified Presentation: 01/31 12:18 Chief complaint: Patient states: Cough, WILKES, sore throat, N/V for 1 week. Fever for 2 ll1 days. At home covid test negative. Coronavirus screen: Vaccine status: Patient reports being unvaccinated. Client denies travel out of the [place] in the last 14 days. congestion, cough unrelated to allergies, fatigue, fever, headache, nausea, shortness of breath, sore throat, vomiting. Client presents with at least one sign or symptom that may indicate coronavirus-19. Standard/surgical mask placed on the client. Ebola Screen: Patient denies travel to an Ebola-affected area in the 21 days before illness onset. Initial Sepsis Screen: Does the patient meet any 2 criteria? No. Patient's initial sepsis screen is negative. Does the patient have a suspected source of infection? Yes: Productive cough/pneumonia. Risk Assessment: Do you want to hurt yourself or someone else? Patient reports no desire to harm self or others. Onset of symptoms was January 24, 2022. 12:18 Method Of Arrival: Ambulatory ll1 12:18 Acuity: KRISTIE 3 ll1 Triage Assessment: 12:20 General: Appears uncomfortable, ill, Behavior is cooperative, appropriate for age. ll1 Pain: Complains of pain in head Quality of pain is described as aching. EENT: Reports nasal congestion. Neuro: Reports headache weakness. Respiratory: Reports shortness of breath cough that is. GI: Reports nausea, vomiting. 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 - Social history:: Smoking status: Patient denies any tobacco usage or history of. - Family history:: not pertinent. Screenin:30 Abuse screen: Denies threats or abuse. Denies injuries from another. Nutritional eh3 screening: No deficits noted. Tuberculosis screening: No symptoms or risk factors identified. Fall Risk None identified. Assessment: 12:30 General: Appears in no apparent distress. uncomfortable, Behavior is calm, cooperative, eh3 appropriate for age. Pain: Complains of pain in abdomen. Neuro: Level of Consciousness is awake, alert, obeys commands, Oriented to person, place, time, situation. Cardiovascular: Capillary refill < 3 seconds Patient's skin is warm and dry. Respiratory: Airway is patent Respiratory effort is even, unlabored, Respiratory pattern is regular, symmetrical. GI: Abdomen is round non-distended, Reports diarrhea, intolerance of fluids, intolerance of food, nausea, vomiting. : No signs and/or symptoms were reported regarding the genitourinary system. EENT: No signs and/or symptoms were reported regarding the EENT system. Derm: No signs and/or symptoms reported regarding the dermatologic system. Musculoskeletal: No signs and/or symptoms reported regarding the musculoskeletal system. 13:30 Reassessment: Patient appears in no apparent distress at this time. Patient and/or eh3 family updated on plan of care and expected duration. Pain level reassessed. Patient is alert, oriented x 3, equal unlabored respirations, skin warm/dry/pink. 15:00 Reassessment: Patient appears in no apparent distress at this time. Patient and/or eh3 family updated on plan of care and expected duration. Pain level reassessed. Patient is alert, oriented x 3, equal unlabored respirations, skin warm/dry/pink. 16:00 Reassessment: Patient appears in no apparent distress at this time. Patient and/or eh3 family updated on plan of care and expected duration. Pain level reassessed. Patient is alert, oriented x 3, equal unlabored respirations, skin warm/dry/pink. 17:00 Reassessment: Patient appears in no apparent distress at this time. Patient and/or eh3 family updated on plan of care and expected duration. Pain level reassessed. Patient is alert, oriented x 3, equal unlabored respirations, skin warm/dry/pink. 18:00 Reassessment: Patient appears in no apparent distress at this time. Patient and/or 3 family updated on plan of care and expected duration. Pain level reassessed. Patient is alert, oriented x 3, equal unlabored respirations, skin warm/dry/pink. 19:00 Reassessment: Patient appears in no apparent distress at this time. Patient and/or 3 family updated on plan of care and expected duration. Pain level reassessed. Patient is alert, oriented x 3, equal unlabored respirations, skin warm/dry/pink. 20:00 Reassessment: Patient appears in no apparent distress at this time. Patient and/or 3 family updated on plan of care and expected duration. Pain level reassessed. Patient is alert, oriented x 3, equal unlabored respirations, skin warm/dry/pink. Vital Signs: 12:18 BP 161 / 59; Pulse 67; Resp 20; Temp 98.6(O); Pulse Ox 96% on R/A; Weight 99.79 kg; ll1 Height 5 ft. 10 in. (177.80 cm); 12:30 BP 121 / 48; Pulse 61; Resp 20; Pulse Ox 95% on R/A; eh3 13:30 BP 117 / 55; Pulse 60; Resp 20; Pulse Ox 96% on R/A; eh3 15:00 BP 103 / 58; Pulse 62; Resp 20; Pulse Ox 99% on R/A; eh3 16:00 BP 127 / 60; Pulse 77; Resp 18; Pulse Ox 98% on R/A; eh3 18:00 BP 115 / 52; Pulse 63; Resp 21; Pulse Ox 100% on R/A; eh3 19:00 BP 116 / 51; Pulse 65; Resp 15; Pulse Ox 98% on R/A; eh3 12:18 Body Mass Index 31.57 (99.79 kg, 177.80 cm) ll1 Vitals: 12:30 Cardiac Rhythm Assessment Paced. 3 ED Course: 12:07 Patient arrived in ED. mr 12:09 Johnie Nuñez MD is Attending Physician. rt 12:18 Kimberly Herrera RN is Primary Nurse. 3 12:18 Arm band placed on Patient placed in an exam room, on a stretcher. ll1 12:20 Triage completed. ll1 12:30 Patient has correct armband on for positive identification. Bed in low position. Call 3 light in reach. Side rails up X2. Adult w/ patient. Client placed on continuous cardiac and pulse oximetry monitoring. NIBP monitoring applied. Door closed. Noise minimized. Warm blanket given. 12:30 Missed attempt(s): 20 gauge in right antecubital area. Bleeding controlled, band aid eh3 applied, catheter tip intact. 13:00 COVID-19/FLU A+B Sent. eh3 13:17 Inserted saline lock: 20 gauge in left forearm, using aseptic technique. iw 14:47 Chest Single View XRAY In Process Unspecified. EDMS 14:49 CT Abd/Pelvis - IV Contrast Only In Process Unspecified. EDMS 15:41 Aaron Clemente MD is Hospitalizing Provider. rt 16:12 US Abdomen Limited In Process Unspecified. EDMS 16:34 Inserted saline lock: 22 gauge in right wrist, using aseptic technique. Blood collected.iw 20:14 No provider procedures requiring assistance completed. Patient admitted, IV remains in [address] Administered Medications: 13:21 Drug: NS 0.9% 1000 ml Route: IV; Rate: 1 bolus; Site: left forearm; 3 14:30 Follow up: IV Status: Completed infusion; IV Intake: 1000ml 3 13:21 Drug: Zofran (Ondansetron) 4 mg Route: IVP; Site: left forearm; 3 14:36 Follow up: Response: Nausea is decreased 3 Medication: 20:14 VIS not applicable for this client. 3 Intake: 14:30 IV: 1000ml; Total: 1000ml. 3 Outcome: 15:43 Decision to Hospitalize by Provider. rt 20:14 Admitted to Med/surg accompanied by nurse, via wheelchair, room 409, Report called to [facility] Carter Stern 20:14 Condition: stable 20:14 Instructed on the need for admit. 20:15 Patient left the ED. 3 Signatures: Dispatcher [employer] BREANNA RupeshBeverly Qing Dotson, RN RN iw Jaime Solorzano RN RN ll1 Kimberly Herrera RN RN [facility] Johnie Nuñez MD MD rt
--- NOTE | 2022-01-31 15:43 | EDPHYS ---
Physician Documentation [facility] Name: Aniceto Feldman Age: 77 yrs Sex: Male : 1945 Arrival Date: 01/31/2022 Time: 12:[address] Private MD: LES Physician Johnie Nuñez HPI: 01/31 12:37 This 77 yrs old Male presents to ER via Ambulatory with complaints of Vomiting, Fever. rt 12:37 The patient presents to the emergency department with nausea, vomiting. Onset: The rt symptoms/episode began/occurred 1 week(s) ago. The symptoms are aggravated by nothing. The symptoms are alleviated by nothing. Associated signs and symptoms: Pertinent positives: Sore throat, rhinorrhea. Severity of symptoms: At their worst the symptoms were moderate. Presents to the ED with 1 week of cough, congestion, sore throat, nausea, vomiting with loose stools. Patient states that he is unable to tolerate any liquids. The patient denies any abdominal pain, other acute complaints. Symptoms are moderate severity, no other aggravating or alleviating factors.. 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 - Social history:: Smoking status: Patient denies any tobacco usage or history of. - Family history:: not pertinent. ROS: 12:37 Constitutional: Negative for fever, chills, and weight loss, Eyes: Negative for injury, rt pain, redness, and discharge, Cardiovascular: Negative for chest pain, palpitations, and edema, Back: Negative for injury and pain, MS/Extremity: Negative for injury and deformity, Skin: Negative for injury, rash, and discoloration, Neuro: Negative for headache, weakness, numbness, tingling, and seizure, Psych: Negative for depression, anxiety, suicide ideation, homicidal ideation, and hallucinations. 12:37 ENT: Positive for rhinorrhea, sore throat. 12:37 Cardiovascular: Positive for 12:37 Respiratory: Positive for cough, Negative for shortness of breath. 12:37 Abdomen/GI: Positive for nausea, vomiting, and diarrhea, Negative for abdominal pain. Exam: 12:37 Constitutional: This is a well developed, well nourished patient who is awake, alert, rt and in no acute distress. Head/Face: Normocephalic, atraumatic. Eyes: Pupils equal round and reactive to light, extra-ocular motions intact. Lids and lashes normal. Conjunctiva and sclera are non-icteric and not injected. Cornea within normal limits. Periorbital areas with no swelling, redness, or edema. Neck: Trachea midline, no thyromegaly or masses palpated, and no cervical lymphadenopathy. Supple, full range of motion without nuchal rigidity, or vertebral point tenderness. No Meningismus. Chest/axilla: Normal chest wall appearance and motion. Nontender with no deformity. No lesions are appreciated. Cardiovascular: Regular rate and rhythm with a normal S1 and S2. No gallops, murmurs, or rubs. Normal PMI, no JVD. No pulse deficits. Respiratory: Lungs have equal breath sounds bilaterally, clear to auscultation and percussion. No rales, rhonchi or wheezes noted. No increased work of breathing, no retractions or nasal flaring. Abdomen/GI: Soft, non-tender, with normal bowel sounds. No distension or tympany. No guarding or rebound. No evidence of tenderness throughout. Skin: Warm, dry with normal turgor. Normal color with no rashes, no lesions, and no evidence of cellulitis. MS/ Extremity: Pulses equal, no cyanosis. Neurovascular intact. Full, normal range of motion. Neuro: Awake and alert, GCS 15, oriented to person, place, time, and situation. Cranial nerves II-XII grossly intact. Motor strength 5/5 in all extremities. Sensory grossly intact. Cerebellar exam normal. Normal gait. Psych: Awake, alert, with orientation to person, place and time. Behavior, mood, and affect are within normal limits. 12:37 ENT: Mucous membranes, posterior pharyngeal erythema without exudates or tonsil hypertrophy.. 13:06 ECG was reviewed by the Attending Physician. rt Vital Signs: 12:18 BP 161 / 59; Pulse 67; Resp 20; Temp 98.6(O); Pulse Ox 96% on R/A; Weight 99.79 kg; ll1 Height 5 ft. 10 in. (177.80 cm); 12:30 BP 121 / 48; Pulse 61; Resp 20; Pulse Ox 95% on R/A; eh3 13:30 BP 117 / 55; Pulse 60; Resp 20; Pulse Ox 96% on R/A; eh3 15:00 BP 103 / 58; Pulse 62; Resp 20; Pulse Ox 99% on R/A; eh3 16:00 BP 127 / 60; Pulse 77; Resp 18; Pulse Ox 98% on R/A; eh3 18:00 BP 115 / 52; Pulse 63; Resp 21; Pulse Ox 100% on R/A; eh3 19:00 BP 116 / 51; Pulse 65; Resp 15; Pulse Ox 98% on R/A; eh3 12:18 Body Mass Index 31.57 (99.79 kg, 177.80 cm) ll1 MDM: 12:18 Patient medically screened. rt 16:05 Differential diagnosis: Nonspecific abd pain, pancreatitis, gastroenteritis, ACS, bowel rt obstruction. ED course: Patient presents to the ED with nausea and vomiting, improving with IV fluids, Zofran. Patient with significant leukocytosis CT scan shows no acute abnormalities. Patient found to have a elevated troponin, no chest pain. No acute ischemic changes on the EKG. Case discussed with hospitalist, requesting ultrasound, will except if ultrasound is unremarkable.. 16:09 Data reviewed: vital signs, nurses notes, lab test result(s), EKG, radiologic studies. rt 01/31 12:18 Order name: CBC with Diff; Complete Time: 16:53 rt 01/31 12:18 Order name: Lipase; Complete Time: 14:11 rt 01/31 12:18 Order name: CMP; Complete Time: 14:11 rt 01/31 12:18 Order name: Troponin High Sensitivity; Complete Time: 14:11 rt 01/31 12:18 Order name: COVID-19/FLU A+B; Complete Time: 14:11 rt 01/31 13:39 Order name: Manual Differential; Complete Time: 16:53 EDMS 01/31 15:40 Order name: Blood Culture Adult (2) rt 01/31 15:40 Order name: UA MICROSCOPIC rt 01/31 17:46 Order name: Troponin High Sensitivity EDMS 01/31 17:46 Order name: Troponin High Sensitivity EDMS 01/31 17:46 Order name: Troponin High Sensitivity EDMS 01/31 19:04 Order name: Urine Dipstick-Ancillary EDMS 01/31 19:32 Order name: Phosphorus EDMS 01/31 19:32 Order name: Creatine Phosphokinase EDMS 01/31 12:18 Order name: EKG; Complete Time: 12:18 rt 01/31 12:18 Order name: EKG - Nurse/Tech; Complete Time: 12:52 rt 01/31 12:18 Order name: Chest Single View XRAY; Complete Time: 15:19 rt 01/31 14:29 Order name: CT Abd/Pelvis - IV Contrast Only; Complete Time: 15:19 rt 01/31 15:40 Order name: Urine Dipstick-Ancillary (obtain specimen); Complete Time: 20:01 rt 01/31 15:51 Order name: US Abdomen Limited; Complete Time: 16:53 rt 01/31 19:32 Order name: NT PRO-BNP EDMS 01/31 19:32 Order name: T4 Free EDMS 01/31 19:32 Order name: Magnesium EDMS 01/31 19:32 Order name: Thyroid Stimulating Hormone EDMS EC:06 Rate is 60 beats/min. Rhythm is regular, Paced with No ectopy. QRS [place] is Normal. QRS rt interval is normal. QT interval is normal. No Q waves. No ST changes noted. Interpreted by me. Administered Medications: 13:21 Drug: NS 0.9% 1000 ml Route: IV; Rate: 1 bolus; Site: left forearm; 3 14:30 Follow up: IV Status: Completed infusion; IV Intake: 1000ml eh3 13:21 Drug: Zofran (Ondansetron) 4 mg Route: IVP; Site: left forearm; eh3 14:36 Follow up: Response: Nausea is decreased eh3 Disposition Summary: 01/31/22 15:43 Hospitalization Ordered Hospitalization Status: Observation rt Provider: Aaron Clemente rt Location: Telemetry/MedSurg (observation) rt Condition: Stable rt Problem: new rt Symptoms: have improved rt Bed/Room Type: Standard rt Room Assignment: 409(01/31/22 18:27) dw Diagnosis - Nausea with vomiting, unspecified rt Forms: - Medication Reconciliation Form rt - SBAR form rt Signatures: Dispatcher [employer] Shy Gaines RN RN dw Jaime Solorzano RN RN ll1 Kimberly Herrera RN RN eh3 Johnie Nuñez MD MD rt Corrections: (The following items were deleted from the chart) 18: 15:43 rt dw
--- NOTE | 2022-01-31 16:20 | RAD REPORT ---
EXAM DESCRIPTION: US - Abdomen Exam Limited - 01/31/2022 4:10 pm CLINICAL HISTORY: bilirubin, check gallbladder COMPARISON: Abdomen Pelvis W Contrast dated 10/30/2019Abdomen Pelvis W Contrast dated 01/31/2022 FINDINGS: The gallbladder demonstrates no gallstones. No pericholecystic fluid or gallbladder wall t hickening. The common bile duct is normal measuring 5 mm. The liver demonstrates no findings of intrahepatic biliary dilatation. IMPRESSION: Negative for cholelithiasis, acute cholecystitis, or biliary ductal dilatation.
[2022-01-31 16:39] LABS: Platelet Estimate ADEQ
[2022-01-31 16:40] LABS: Blood Morphology Comment NOT SEEN (NOT SEEN)
[2022-01-31] MEDS ORDERED: HYDROCODONE/APAP 5/325 MG TAB PO PRN (17:42)
[2022-01-31] MEDS ORDERED: ACETAMINOPHEN 325 MG TABLET PO PRN (17:43)
[2022-01-31] MEDS ORDERED: ONDANSETRON 4 MG/2 ML VIAL IV PRN (17:48)
--- NOTE | 2022-01-31 17:57 | P.HP ---
Certification for Inpatient Patient admitted to: Observation With expected LOS: <2 Midnights Patient will require the following post-hospital care: None Practitioner: I am a practitioner with admitting privileges, knowledge of patient current condition, hospital course, and medical plan of care. Services: Services provided to patient in accordance with Admission requirements found in Title 42 Section 412.3 of the Code of Federal Regulations Patient History Date of Service: 01/31/22 Reason for admission: Nausea and Vomitting History of Present Illness: Patient is a 77-year-old male with a past medical history significant for A. fib, hypertension, hypothyroidism, [place], Pacemaker, A. fib, CAD who presents with complaint of nausea and vomiting that has been ongoing for the past 3 days. Patient reported that he is unable to keep any p.o. intake down. Patient reported associated signs and symptoms of fever, cough, rhinorrhea weakness, fatigue and shortness of breath. Patient denies any other signs or symptoms. Symptoms are aggravated or relieved by nothing. Patient decided to present to the hospital due to worsening symptoms. Allergies amlodipine Allergy (Verified 10/30/18 01:06) Anaphylaxis fentanyl Allergy (Verified 10/30/18 01:06) Anaphylaxis nifedipine [From Procardia] Allergy (Verified 10/30/18 02:43) Anaphylaxis vecuronium Allergy (Verified 10/30/18 01:06) Anaphylaxis nostigmi Allergy (Uncoded 10/30/18 02:43) Anaphylaxis Home Medications: Clopidogrel Bisulfate [Plavix*] 75 mg PO DAILY 03/26/19 Metoprolol Tartrate [Lopressor*] 50 mg PO BID 30 Days #60 tab 03/26/19 Valsartan/Hydrochlorothiazide [Valsartan-Hctz 160-25 mg Tab] 160 mg PO DAILY carvediloL [Carvedilol] 6.25 mg PO DAILY 03/26/19 hydroCHLOROthiazide [Hydrochlorothiazide] 12.5 mg PO DAILY 03/26/19 - Past Medical/Surgical History Diabetic: No -: HTN -: DE X2 -: HYPERCHOLESTEREMIA -: DEGENERATIVE JOINT DIS -: COLON CA- 2015 -: CAD -: PILONIDAL CYST -: A.FIB -: MINI STROKES -: HAND SX -: CAROTID SX -: SHOULDER SX -: HEART CATH W/STENTS PLACED -: TONSILLECTOMY - Family History Father -: Other (see notes) Notes: Heart attack Brother -: Diabetes Sister Notes: Heart problems - Social History Smoking Status: Former smoker Alcohol use: Yes CD- Drugs: No Caffeine use: Yes Place of Residence: Home Review of Systems General: Fever, Weakness, Other (Fatigue) Eyes: Unremarkable ENT: Other (Rhinorrhea) Respiratory: Cough, Shortness of Breath, Other Cardiovascular: Unremarkable Gastrointestinal: Nausea, Vomiting Genitourinary: Unremarkable Musculoskeletal: Unremarkable Integumentary: Unremarkable Neurological: Weakness Lymphatics: Unremarkable Physical Examination - Physical Exam General: Alert, In no apparent distress, Oriented x3, Cooperative HEENT: Atraumatic, PERRLA, EOMI, Sclerae nonicteric Neck: Supple, 2+ carotid pulse no bruit, No LAD, Without JVD or thyroid abnormality Respiratory: Clear to auscultation bilaterally, Diminished Cardiovascular: No edema, Irregular heart rate/rhythm Capillary refill: <2 Seconds Gastrointestinal: Normal bowel sounds, Soft and benign, No tenderness Musculoskeletal: No clubbing, No swelling, No contractures, No tenderness Integumentary: No rashes, No breakdown, No significant lesion, No erythema Neurological: Normal gait, Normal speech, Normal strength at 5/5 x4 extr, Normal tone, Normal affect Lymphatics: No axilla or inguinal lymphadenopathy - Studies Laboratory Data (last 24 hrs) 01/31/22 13:14: Sodium 129 L, Potassium 4.1, BUN 29 H, Creatinine 1.42 H, Glucose 138 H, Total Bilirubin 2.2 H, AST 15, ALT 18, Alkaline Phosphatase 131 H, Lipase 43 L 01/31/22 13:14: WBC 22.40 H*, Hgb 12.9 L, Hct 38.5 L, Plt Count 186 Assessment and Plan - Plan --Nausea and vomiting. CT abdomen unremarkable for any acute intra-abdominal abnormality. Continue IV hydration. Continue supportive care. --Atrial fibrillation. Continue metoprolol. Telemetry to monitor for any significant arrhythmia. -- Hypertension. Poorly controlled. Continue home medications and hydralazine as needed. --Hypothyroidism. Continue home medication. --Elevated troponin. Likely secondary to demand ischemia. Will trend troponin levels. Cardiology consulted. Telemetry to monitor for any significant arrhythmia. --HLD. Continue statin. --History of CAD\DE. Continue aspirin, Plavix and statin. -- Leukocytosis. CT chest pending to rule out any infectious process. UA and blood cultures pending. Patient placed on prophylactic antibiotics. Will reassess WBC in a.m. --Anemia of chronic disease. H&H stable. We will continue to monitor hemoglobin and transfuse if less than 7.0 --Presence of cardiac pacemaker. Continue supportive care. -- CKD 3A. Baseline functions unknown. We will continue to monitor renal functions. --Hyponatremia. Likely secondary to dehydration. Continue IV hydration with normal saline. Will reassess levels in a.m. -- DVT prophylaxis with heparin subQ Discharge Plan: Home Plan to discharge in: 48 Hours - Advance Directives Does patient have a Living Will: No Does patient have a Durable POA for Healthcare: No - Code Status/Comfort Care Code Status Assessed: Yes Physician Review: Patient Assessed, Agree with Above Assessment and Plan Critical Care: No
[2022-01-31 19:04] LABS: Urine Blood Negative (Negative); Urine Glucose Negative (Negative); Urine Protein 1+ (Negative); Urine Specific Gravity 1.025 (1.005-1.030); Urine pH 5.5 (5.0-7.0)
[2022-01-31] MEDS ORDERED: HYDRALAZINE HCL 20 MG/ML VIAL IV PRN (19:25)
[2022-01-31 19:32] LABS: Magnesium 2.2 mg/dL (1.8-2.4); Thyroid Stimulating Hormone 0.684 uIU/mL (0.360-3.740)
[2022-01-31 19:36] LABS: Urine Crystals Unidentified Few /HPF (None Seen); Urine Mucus Slight /HPF (None Seen); Urine RBC <5 /HPF (None Seen); Urine WBC Clump Rare /HPF (None Seen)
--- NOTE | 2022-01-31 20:36 | RAD REPORT ---
EXAM DESCRIPTION: CT - Thorax Wo Con - 01/31/2022 8:09 pm CLINICAL HISTORY: Cough, Fever, R O PNA COMPARISON: No comparisonsAbdomen Pelvis W Contrast dated 01/31/2022 FINDINGS: Chest Wall: No suspicious thyroid nodules or pathologic lymphadenopathy. Lungs: No acute abnormality. Pleura: Small chronic left pleural effusion. Mediastinum/nury: No pathologic lymphadenopathy. Pulmonary arteries/Aorta: Limited evaluation without contrast. No aortic aneurysm. Heart: No significant pericardial effusion. Normal heart size. Aortic valve prosthesis. Upper abdomen: No acute abnormality. Bones: No acute abnormality. Bridging osteophytes in the spine. Sternotomy. All CT scans are performed using dose optimization technique as appropriate and may include automated exposure control or mA/KV adjustment according to patient size. IMPRESSION: Chronic small left pleural effusion with round atelectasis. No acute findings.
[2022-01-31] MEDS: ATORVASTATIN 40 MG TAB PO SCH (21:00)
[2022-01-31] MEDS: HEPARIN 5000 UNIT/ML 1 ML VIAL SQ SCH (21:00)
[2022-01-31] MEDS: METOPROLOL TAR 50 MG TAB PO SCH (21:00)
[2022-01-31] MEDS: NA CHLORIDE 0.9% 1,000 ML IV SCH (21:05)
[2022-01-31 23:20] VITALS: BMI 31.5
[2022-01-31 23:57] LABS: Specific Gravity > 1.030 (1.005-1.030); Urine Bilirubin NEGATIVE (Negative); Urine Blood Negative (Negative); Urine Clarity Clear (Clear); Urine Color Yellow (Yellow); Urine Glucose NEGATIVE (Negative); Urine Protein TRACE (Negative); Urine RBC <5 /HPF (None Seen); Urine Urobilinogen 1+ (Normal); Urine pH 5.5 (5.0-7.0)
[2022-02-01 05:36] LABS: Absolute Lymphocytes (CBC) 0.2 K/uL (0.7-4.9); Hematocrit 37.4 % (39.6-49.0); Lymphocytes % 1.2 % (15.3-44.8); MPV 8.7 fL (7.6-11.3)
[2022-02-01 05:49] LABS: Potassium 4.2 mmol/L (3.5-5.1)
[2022-02-01] MEDS: NA CHLORIDE 0.9% 1,000 ML IV SCH ×4 (07:20→17:30)
[2022-02-01] MEDS: METOPROLOL TAR 50 MG TAB PO SCH ×2 (09:00→20:47)
[2022-02-01] MEDS ORDERED: ASPIRIN EC 81 MG TAB PO SCH (09:00)
[2022-02-01] MEDS: hydroCHLOROthiazide 12.5 MG CAP PO SCH (09:00)
[2022-02-01] MEDS ORDERED: CLOPIDOGREL 75 MG TABLET PO SCH (09:00)
[2022-02-01] MEDS ORDERED: carvediloL 6.25 MG TAB PO SCH (09:00)
[2022-02-01] MEDS: HEPARIN 5000 UNIT/ML 1 ML VIAL SQ SCH (09:00)
[2022-02-01 10:37] LABS: Albumin 2.9 g/dL (3.4-5.0); Bilirubin Direct 1.2 mg/dL (0-0.2); Protein, Total 6.4 g/dL (6.4-8.2)
--- NOTE | 2022-02-01 15:33 | P.PN ---
Date of Service: 02/01/22 Subjective: No nausea this morning, feeling hungry, tolerated sips No chest pain, no shortness of breath, no abdominal pain nasal congestion ROS: 10 point ROS as noted above, otherwise negative Physical exam GEN: Alert, oriented, NAD HEENT: Normal conjunctiva, sclera anicteric CV: Regular rate and rhythm, no edema Pulm: Non-labored respirations on room air ABD: Soft, nontender, nondistended Integumentary: No rashes Neuro: Normal speech, normal affect Problem List Nausea and vomiting Leukocytosis Mildmoderate hyponatremia CKD/possible MIRIAN Paroxysmal atrial fibrillation Hypertension Hypothyroidism Troponin leak History of CAD/CT Symptoms improved overnight, received gentle IV fluids, increase IV fluids CT abd/pelvis and chest without acute findings Start heart healthy diet Patient appears very dehydrated Suspect dehydration contributed to hyperbilirubinemia, creatinine, leukocytosis Possible viral gastroenteritis / reports recent nose bleed and nasal congestion that preceded his nausea and vomiting by 1 day Troponin trending flat, cardiology consulted, suspect no further inpatient work- up warranted temp: 99s VTE: anticoagulation, home dose Code: full Dispo: home, anticipate tomorrow pending improvement in labs, tolerating PO, afebrile Time Spent Managing Pts Care (In Minutes): 35
[2022-02-01] MEDS ORDERED: PNEUMOCOCCAL VACCINE 0.5 ML IMVAC ONE (17:00)
[2022-02-01] MEDS ORDERED: INFLUENZA VACCINE (for 6+ mo) 0.5 ML DOSE IMVAC ONE (17:00)
[2022-02-01] MEDS: PIPER TAZO 3.375 GM in NA CHLORIDE 0.9% 100 ML IV SCH (17:31)
[2022-02-01] MEDS: APIXABAN 5 MG TABLET PO SCH (20:47)
[2022-02-01] MEDS: ATORVASTATIN 40 MG TAB PO SCH (20:47)
[2022-02-01] MEDS ORDERED: AMLODIPINE 5 MG TAB PO SCH (21:00)
[2022-02-02] MEDS: NA CHLORIDE 0.9% 1,000 ML IV SCH ×2 (01:13→08:00)
[2022-02-02] MEDS: PIPER TAZO 3.375 GM in NA CHLORIDE 0.9% 100 ML IV SCH ×2 (01:13→09:08)
[2022-02-02 06:22] LABS: Absolute Lymphocytes (CBC) 0.6 K/uL (0.7-4.9); Hematocrit 37.3 % (39.6-49.0); Lymphocytes % 4.3 % (15.3-44.8); MCV 85.9 fL (80-100); MPV 9.3 fL (7.6-11.3); RBC Red Blood Cell Count 4.34 M/uL (4.33-5.43)
[2022-02-02 06:36] LABS: Albumin 2.8 g/dL (3.4-5.0); Bilirubin Total 1.9 mg/dL (0.2-1.0); Magnesium 2.3 mg/dL (1.8-2.4); Protein, Total 6.3 g/dL (6.4-8.2)
[2022-02-02 08:35] VITALS: BP 136/62; TEMP 97.6
[2022-02-02] MEDS: hydroCHLOROthiazide 12.5 MG CAP PO SCH (09:00)
[2022-02-02] MEDS: METOPROLOL TAR 50 MG TAB PO SCH (09:00)
[2022-02-02] MEDS: APIXABAN 5 MG TABLET PO SCH (09:06)
[2022-02-02 10:35] VITALS: O2SAT 98
--- NOTE | 2022-02-02 16:35 | EKG ---
Test Date: 2022-01-31 Test Time: 12:40:09 Occupational Psychologist: GLO MEASUREMENT RESULTS: Intervals: Rate: 60 [place]: QRSD: 156 QT: 506 QTc: 506 [place]: P: [place]: QRS: 141 T: -17 INTERPRETIVE STATEMENTS: Electronic ventricular pacemaker Compared to ECG 03/27/2020 10:16:49 Atrial fibrillation no longer present Left bundle-branch block no longer present Electronically Signed On 02-02-22 16:33:46 ASSOCIATE PROFESSOR OF SOCIOLOGY by Laron Smyth
--- NOTE | 2022-02-02 20:11 | CON ---
Date of Consultation: 02/01/2022 Reason For Consultation: Elevated troponin. History Of Present Illness: This is a 77-year-old male with history of hypertension, hypothyroidism, atrial fibrillation, and coronary artery disease who presented with nausea and vomiting for about 3 days along with loose stools and unable to keep anything down. Denies having any chest pain. No bernard rtness of breath. Has nausea and diarrhea, but no dysuria, polyuria, or urinary urgency. All other systems reviewed and they are negative. Past Medical History: As outlined above in the HPI. Medications: Refer to reconciliation sheet for detailed list. Allergies: FENTANYL, NIFEDIPINE. Family History: No premature coronary artery disease or cancer. Social History: He is an ex-smoker. Does not drink or use any drugs. Review of Systems: All systems reviewed and they are negative except as mentioned in HPI. Physical Examination: Vital Signs: Reviewed. Head And Neck: Pupils are equal and reactive to light. Intact eye movements. No JVD. No cervical lymphadenopathy. Neck is supple. Thyroid is not enlarged. Lungs: Clear to auscultation bilaterally. No rhonchi, wheezing, or crackles. No accessory muscle u se. Heart: Regular rate and rhythm. No extra sounds. Abdomen: Soft, nontender. Bowel sounds positive. No organomegaly. No masses or hernia. No rigidi ty or rebound. Extremities: No edema, clubbing, or cyanosis. Intact pulses. Skin: No rashes. Neurologic: Alert, awake, and oriented x3. No acute focal deficits appreciated. Investigations: Troponin 165, 181, and then 168. BUN is 36 and creatinine 1.51. Assessment And Recommendation: 1.Elevated troponin. There is no chest pain. This is likely demand and troponin is trending down. I recommend outpatient workup including a stress test and echocardiogram and we will follow this pat ient upon discharge. 2.Nausea and vomiting, likely gastroenteritis and being managed by primary hospitalist. 3.Hypertension. Blood pressure is controlled. SR/MODL Voice ID: [id number] Report ID: [id number]
--- NOTE | 2022-02-02 21:50 | P.DS ---
Admission Date: 01/31/22 Discharge Date: 02/02/22 Disposition: ROUTINE DISCHARGE Reason for Admission: Nausea and Vomitting Brief History of Present Illness: 77-year-old male with a past medical history significant for A. fib, hypertension, hypothyroidism, [place], Pacemaker, A. fib, CAD who presents with complaint of nausea and vomiting that has been ongoing for the past 3 days. Patient reported that he is unable to keep any p.o. intake down. Patient report ed associated signs and symptoms of fever, cough, rhinorrhea weakness, fatigue and shortness of breath. Patient denies any other signs or symptoms. Symptoms are aggravated or relieved by nothing. Patient decided to present to the hospital due to worsening symptoms. Hospital Course: Problem List Nausea and vomiting, leukocytosis, secondary to viral gastroenteritis Mildmoderate hyponatremia CKD/possible MIRIAN Paroxysmal atrial fibrillation Hypertension Hypothyroidism Troponin leak History of CAD/[place] Patient presented with 2-3 days of nausea/vomiting, and decreased PO intake, with some nasal congestion and brief nose bleed. No abdominal pain. His nausea/vomiting improved/resolved shortly after admission. Suspect patient's s ymptoms may have started due to postnasal drip - mucus and blood, with possible viral gastroenteritis. CT chest/abd/pelvis noted some chronic findings - small left pleural effusion, no acute findings/changes. He was noted to be dehydrated and given IV fluids and empirically treated with IV zosyn for possible pneumonia / intrabdominal ifnection. His leukocytosis improved daily, down to 14k on day of discharge. He reported feeling much better, remained afebrile, preliminary blood cultures and gram stain were negative at 24hrs. He was tolerating a regular diet, and ambulating. He did report some slight dyspnea on exertion. Discussed with continued improvement would be reasonable to go home, which he preferred. He is deemed stable for discharge home. He was noted to have mild elevation in his total bilirubin and alkaline phosphatase, which has been noted previously (last year), and at similar levels. CT abd/pelvis was negative for acute findings of liver/gallbladder/pancreas. Liver ultrasound was rather unremarkable as well. He was not tender, and tolerating regular diet. Recommend follow up with his GI doctor. Ok to resume home medications as previously prescribe. Monitor blood pressure. New prescription: Augmention 7 days, to cover for possible bacterial component. Recommend daily over the counter probiotic while taking augmentin. Follow up: PCP within 1 week Cardiology in 1-2 weeks, for outpatient stress testing / evaluation GI - in next few weeks-months. Vital Signs/Physical Exam: Temp Pulse Resp BP Pulse Ox 97.6 F 65 17 136/62 98 02/02/22 08:00 02/02/22 08:00 02/02/22 08:00 02/02/22 08:00 02/02/22 08:00 Physical exam GEN: Alert, oriented, NAD HEENT: Normal conjunctiva, sclera anicteric CV: Regular rate and rhythm, no edema Pulm: Non-labored respirations on room air ABD: Soft, nontender, nondistended Integumentary: No rashes Neuro: Normal speech, normal affect Laboratory Data at Discharge: WBC 14.40 K/uL (4.3-10.9) H 02/02/22 05:14 Hgb 12.1 g/dL (13.6-17.9) L 02/02/22 05:14 Hct 37.3 % (39.6-49.0) L 02/02/22 05:14 Plt Count 171 K/uL (152-406) 02/02/22 05:14 Sodium 131 mmol/L (136-145) L 02/02/22 05:14 Potassium 4.0 mmol/L (3.5-5.1) 02/02/22 05:14 BUN 38 mg/dL (7-18) H 02/02/22 05:14 Creatinine 1.32 mg/dL (0.55-1.3) H 02/02/22 05:14 Glucose 115 mg/dL (74-106) H 02/02/22 05:14 Phosphorus 3.0 mg/dL (2.5-4.9) 01/31/22 18:51 Magnesium 2.3 mg/dL (1.8-2.4) 02/02/22 05:14 Total Bilirubin 1.9 mg/dL (0.2-1.0) H 02/02/22 05:14 AST 27 U/L (15-37) 02/02/22 05:14 ALT 29 U/L (12-78) 02/02/22 05:14 Alkaline Phosphatase 133 U/L (45-117) H D 02/02/22 05:14 Lipase 43 U/L (73-393) L 01/31/22 13:14 Home Medications: Amlodipine Besylate 5 mg PO BEDTIME 01/31/22 Apixaban [Eliquis] 5 mg PO BID 01/31/22 Valsartan 160 mg PO DAILY 01/31/22 Amox/Clavulanate [Augmentin 875-125 Tab] 1 tab PO BID 7 Days #14 tab 02/02/22 New Medications: Amox/Clavulanate [Augmentin 875-125 Tab] 1 tab PO BID 7 Days #14 tab Physician Discharge Instructions: Patient presented with 2-3 days of nausea/vomiting, and decreased PO intake, with some nasal congestion and brief nose bleed. No abdominal pain. His nausea/vomiting improved/resolved shortly after admission. Suspect patient's symptoms may have started due to postnasal drip - mucus and blood, with possible viral gastroenteritis. CT chest/abd/pelvis noted some chronic findings - small left pleural effusion, no acute findings/changes. He was noted to be dehydrated and given IV fluids and empirically treated with IV zosyn for possible pneumonia / intrabdominal ifnection. His leukocytosis improved daily, down to 14k on day of discharge. He reported feeling much better, remained afebrile, preliminary blood cultures and gram stain were negative at 24hrs. He was tolerating a regular diet, and ambulating. He did report some slight dyspnea on exertion. Discussed with continued improvement would be reasonable to go home, which he preferred. He is deemed stable for discharge home. He was noted to have mild elevation in his total bilirubin and alkaline phosphatase, which has been noted previously (last year), and at similar levels. CT abd/pelvis was negative for acute findings of liver/gallbladder/pancreas. Liver ultrasound was rather unremarkable as well. He was not tender, and tolerating regular diet. Recommend follow up with his GI doctor. Ok to resume home medications as previously prescribe. Monitor blood pressure. New prescription: Augmention 7 days, to cover for possible bacterial component. Recommend daily over the counter probiotic while taking augmentin. Follow up: PCP within 1 week Cardiology in 1-2 weeks, for outpatient stress testing / evaluation GI - in next few weeks-months. Followup: NONE,NONE [Primary Care Provider] - Time spent managing pt's care (in minutes): 45
== END 2022-02-02 10:15 | disposition home or self-care (01) ==
LOC: ER 12:04 → ERHOLD 17:41 → 4TH 20:06
PROVIDERS: ADMIT Hospitalist; ATTEND Hospitalist
DX: A08.4 Viral intestinal infection, unspecified (principal); D72.829 Elevated white blood cell count, unspecified; E87.1 Hypo-osmolality and hyponatremia; I10 Essential (primary) hypertension; I48.91 Unspecified atrial fibrillation; E03.9 Hypothyroidism, unspecified; I25.2 Old myocardial infarction; I25.10 Atherosclerotic heart disease of native coronary artery without angina pectoris; R77.8 Other specified abnormalities of plasma proteins; N18.31 Chronic kidney disease, stage 3a; D63.1 Anemia in chronic kidney disease; E80.6 Other disorders of bilirubin metabolism; I48.0 Paroxysmal atrial fibrillation; Z88.8 Allergy status to other drugs, medicaments and biological substances
CPT/HCPCS: 96361; 93005; 87040 ×2; 85025 ×3; 81001; 80048; 36415 ×2; 83735 ×2; 82550; 84100; 80076; 84443; 84484 ×3; 84439; 83690; 80053 ×2; 83880; 0240U; 71250; 74177; 71045; 76705; 96374; 99285; Q9967; J2543 ×3; J7030 ×5; J2405 ×2; G0378 ×4; 81003; 81015; J1644

== ENCOUNTER 2024-05-19 11:00 | Day surgery (SDC) | payer OTHER ==
--- NOTE | 2024-05-15 13:23 | RAD REPORT ---
EXAM: Chest Pa And Lat (2 Views) HISTORY: 79 years Male pre op COMPARISON: 01/31/2022 FINDINGS: LUNGS/PLEURA: Left pleural effusion and probable atelectasis or scarring which is similar to prior. N o edema or consolidative airspace disease. CARDIAC/MEDIASTINUM: Stable enlargement. Aortic valve prosthesis. UPPER ABDOMEN: No significant abnormality. BONES: Sternotomy. No acute abnormality. LINES/TUBES/OTHER: Pacemaker present. IMPRESSION: Unchanged small left pleural effusion and likely underlying atelectasis or scarring. No pulmonary cholo ma or consolidative airspace disease.
[2024-05-15 13:31] LABS: Absolute Basophils 0.1 K/uL (0-0.5); Absolute Eosinophils 0.1 K/uL (0-0.5); Absolute Monocytes 0.8 K/uL (0.1-1.3); Absolute Neutrophil 6.2 K/uL (1.8-8.0); Basophils % 1.1 % (0-1.3); Eosinophils % 1.5 % (0-4.4); Hematocrit 33.8 % (39.6-49.0); Hemoglobin 11.2 g/dL (13.6-17.9); Lymphocytes % 12.3 % (15.3-44.8); MCH 28.7 pg (27.0-35.0); MCHC 33.1 g/dL (32.0-36.0); MCV 86.8 fL (80-100); Monocytes % 10.2 % (3.3-12.3); Neutrophils % 74.9 % (41.7-73.7); Nucleated Red Blood Cells % 0.1 % (0-0); Platelets 235 thou/uL (152-406); RBC Red Blood Cell Count 3.89 M/uL (4.33-5.43); Red Cell Distribution Width 18.6 % (12.1-15.2)
[2024-05-15 13:35] LABS: Anion Gap 7.4 mEq/L (5.0-15.0); PT Prothrombin Time 18.9 SECONDS (10.0-13.0); PTT, Activated Partial Thromb 45.8 SECONDS (24.3-36.9); Potassium 5.4 mEq/L (3.5-5.1); Protime INR 1.7
--- NOTE | 2024-05-19 11:16 | EKG ---
Test Date: 2024-05-15 Test Time: 14:11:00 [place] Operator: NAILA MEASUREMENT RESULTS: Intervals: Rate: 75 [place]: QRSD: 164 QT: 478 QTc: 533 [place]: P: [place]: QRS: 29 T: 164 INTERPRETIVE STATEMENTS: Electronic ventricular pacemaker Compared to ECG 01/31/2022 12:40:09 No significant changes Electronically Signed On 05-19-24 11:04:19 CDT by Kiel Baker
[2024-05-19] MEDS ORDERED: NA CHLORIDE 0.9% 500 ML ONE (11:35)
[2024-05-19 12:56] VITALS: TEMP 97.1
[2024-05-19] MEDS ORDERED: NITROGLYCERIN/D5W 50 MG/250 ML BTL IV ONE (13:23)
[2024-05-19] MEDS ORDERED: HEPA 1000U/500MLS 2,000 UNIT/1,000 ML BAG IV ONE (13:23)
[2024-05-19] MEDS ORDERED: HEPARIN 10,000 UNIT/10 ML VIAL IV ONE (13:23)
[2024-05-19] MEDS ORDERED: LIDOCAINE 1% 20 ML MDV ONE (13:23)
[2024-05-19] MEDS ORDERED: CLOPIDOGREL 75 MG TABLET ONE (13:24)
[2024-05-19] MEDS ORDERED: MIDAZOLAM HCL 2 MG/2 ML INJ ONE (13:24)
[2024-05-19] MEDS ORDERED: TICAGRELOR 90 MG TABLET PO ONE (13:24)
[2024-05-19] MEDS ORDERED: ASPIRIN 325 MG TAB ONE (13:24)
[2024-05-19] MEDS ORDERED: FENTANYL CITR 100 MCG/2 ML ONE (13:24)
[2024-05-19] MEDS ORDERED: HEPARIN 5000 UNIT/ML 1 ML VIAL ONE (13:24)
[2024-05-19] MEDS ORDERED: ATROPINE SULF 1 MG/10 ML SYR IV ONE (13:24)
[2024-05-19 16:33] VITALS: BP 158/79; O2SAT 100
--- NOTE | 2024-05-19 18:14 | OP ---
Date of Procedure: 05/19/2024 Surgeon: MK MART Procedures Performed: 1. Selective coronary angiogram with bypass graft study. 2. Left heart catheterization. Indication: Chest pain with abnormal stress test. Access: Right common femoral artery 6-Armenian closed with a 6-Armenian Mynx closure device. Complications: None. Bleeding: Less than 100 mL. Total Sedation Time: 1 hour, used fentanyl and Versed. Description Of Procedure: After risks, benefits, and alternatives were explained, the patient agreed to procedure and signed informed consent. The patient was brought into cardiac catheterization labo page hospital, prepped and draped in usual sterile fashion. Then, I accessed right common femoral artery us ing micropuncture kit, ultrasound guidance, fluoroscopy, placed 6-Armenian [place] sheath and took a 6 -Armenian JL4 over a J-wire into the aortic root, engaged left main, took standard views, exchanged for a 6-Armenian JR4 catheter, engaged the RCA, SVG to RCA, SVG to OM, and SNIDER to LAD, took standard view s and then across the aortic valve over the wire, measured the LVEDP. Pullback did not record any gr adient. Then removed the catheter and the sheath, and 6-Armenian Mynx closure device was used for clos ure with good hemostasis. Findings: 1. Left main normal. 2. LAD; diffuse in-stent restenoses proximally about 80% and has mid 90% on multiple tandem lesions r anging between 60% and 70%. 3. Left circumflex; it is large artery proximal 50%, mid 40%, and then OM branch has ostial 80%, mid 90% stenosis and the circ after the OM branch has focal 80% stenosis. 4. RCA is totally occluded ostially. Bypass Graft: 1. Widely patent SNIDER to LAD. 2. Widely patent SVG to OM. 3. Widely patent SVG to RCA. 4. LVEDP is elevated at 23 mmHg. Conclusion: 1. Severe [place] coronary artery disease with patent SVG to RCA and SVG to OM and SNIDER to LAD. 2. Elevated LVEDP. Recommendations: Guideline directed medical therapy for heart failure. To be started on Entresto an d metoprolol. To see me in the office tomorrow and we will start implementing the medical therapy. /THONY Voice ID: [id number] Report ID: [id number]
== END 2024-05-19 16:33 | disposition home or self-care (01) ==
LOC: CCL 11:00
PROVIDERS: ADMIT Internal Medicine Interventional Cardiology; ATTEND Internal Medicine
DX: I25.10 Atherosclerotic heart disease of native coronary artery without angina pectoris (principal); I25.82 Chronic total occlusion of coronary artery; T82.855A Stenosis of coronary artery stent, initial encounter; I11.0 Hypertensive heart disease with heart failure; I50.32 Chronic diastolic (congestive) heart failure; I65.29 Occlusion and stenosis of unspecified carotid artery; I35.1 Nonrheumatic aortic (valve) insufficiency; I48.0 Paroxysmal atrial fibrillation; I25.2 Old myocardial infarction; E78.5 Hyperlipidemia, unspecified; Z95.1 Presence of aortocoronary bypass graft; Z95.0 Presence of cardiac pacemaker; Z79.01 Long term (current) use of anticoagulants; Z79.899 Other long term (current) drug therapy; Z88.5 Allergy status to narcotic agent; Z88.8 Allergy status to other drugs, medicaments and biological substances; Z82.49 Family history of ischemic heart disease and other diseases of the circulatory system
CPT/HCPCS: 93005; 85025; 80048; 36415; 85610; 85730; 71046; 93459; 76937; C1893; Q9967; J2003; J2250; J7040; C1760; 93458; 99152; 99153; J0461; J1644; J3010